=== PATIENT | female | born 1970 | race Hispanic/Latino ===

== ENCOUNTER 2020-12-13 12:43 | Outpatient (CLI) | payer BC, SELFPAY ==
--- NOTE | 2020-12-13 16:47 | WPDPFTINT ---
PFT Interpretation This is a pulmonary function test with spirometry, plethysmography and diffusing capacity. The test was performed and results interpreted in accordance with the 2019 and 2005 ATS/ERS Task Force guidelines respectively using the Global Lung Function Initiative-2012 reference equations. Patient demonstrated good effort and cooperation. Reproducibility criteria were met. The quality of the pre bronchodilator spirometry maneuver was Grade B. Findings: Spirometry: The contour the inspiratory and expiratory flow tracing are normal. The FVC is 3.23 L, 130% predicted. The FEV1 is 2.30 L, 110% predicted. The FEV1: FVC ratio 71%. Plethysmography: The total lung capacity is 4.29 L, 100% predicted. The functional residual capacity is 1.80 L, 76% predicted. The residual volume is 1.06 L, 70% predicted. Diffusing capacity: The absolute diffusion capacity is 18.3, 88% predicted. The diffusing capacity corrected for alveolar volume is 4.73, 98% predicted. Impression: The spirometry is normal without evidence of an obstructive abnormality. The lung volumes are normal. The diffusing capacity is normal. There are no prior studies for comparison PFT Procedure Performed PFT Procedure Performed Plethysmography (Lung Vol) Diffusing Cap (DLCO) Spirometry w/o Bronchodil
== END 2020-12-13 12:44 | disposition home or self-care (01) ==
PROVIDERS: PCP Nurse Practitioner Family; Visit Provider Nurse Practitioner Family
DX: R06.02 Shortness of breath (principal); J45.20 Mild intermittent asthma, uncomplicated
CPT/HCPCS: 94375; 94726; 94729

== ENCOUNTER 2020-12-13 13:58 | Outpatient (CLI) | payer BC, SELFPAY ==
--- NOTE | ~2020-12-13 | MR_ITS ---
EXAMINATION: MR cervical spine wo con EXAM DATE: 12/13/2020 14:41 INDICATION: Cervicalgia. Neck pain, frontal occipital migraines. TECHNIQUE: Multi-sequential, multiplanar MR images of the cervical spine were obtained without contra st. Axial T2, axial T2 MERGE sequence. Sagittal T1, T2, T2 fat saturation images also obtained. Th ere is no prior study for comparison. FINDINGS: Mild to moderate disc disease C5-6, and mild at C4-5 and C6-7. The vertebral bodies are al igned in the AP dimension. The spinal cord signal intensity and intrinsic morphology is normal. Cervi comedullary junction is normal in appearance. There are no suspicious marrow signal abnormalities. Pa raspinal soft tissue is unremarkable. Level by level evaluation: C2-C3: Disc does not extend beyond the endplate margin. Uncovertebral joint arthropathy: None. Facet joint arthropathy: Mild bilateral. Neural foraminal stenosis: No stenosis. Central canal stenosis: No stenosis. C3-C4: Disc does not extend beyond the endplate margin. Uncovertebral joint arthropathy: None. Facet joint arthropathy: Mild bilateral. Neural foraminal stenosis: No stenosis. Central canal stenosis: No stenosis. C4-C5: Disc does not extend beyond the endplate margin. Uncovertebral joint arthropathy: Mild bilateral. Facet joint arthropathy: Mild to moderate left, mild right. Neural foraminal stenosis: No stenosis. Central canal stenosis: No stenosis. C5-C6: There is a mild diffuse disc bulge. Uncovertebral joint arthropathy: Mild to moderate bilateral. Facet joint arthropathy: Mild to moderate left, mild right. Neural foraminal stenosis: Mild left. Central canal stenosis: Mild. C6-C7: There is a mild diffuse disc bulge. Uncovertebral joint arthropathy: Mild to moderate bilateral. Facet joint arthropathy: Mild bilateral. Neural foraminal stenosis: No stenosis. Central canal stenosis: Mild. C7-T1: Disc does not extend beyond the endplate margin. Uncovertebral joint arthropathy: Mild bilateral. Facet joint arthropathy: Mild bilateral. Neural foraminal stenosis: No stenosis. Central canal stenosis: No stenosis. IMPRESSION: Mild to moderate cervical spondylosis. Reviewed, dictated and finalized at location A.
== END 2020-12-13 13:59 ==
PROVIDERS: Visit Provider Nurse Practitioner Family
DX: M54.2 Cervicalgia (principal); M47.812 Spondylosis without myelopathy or radiculopathy, cervical region
CPT/HCPCS: 72141

== ENCOUNTER 2021-05-14 16:26 | Outpatient (CLI) | payer BC, SELFPAY ==
--- NOTE | ~2021-05-14 | MM_ITS ---
EXAMINATION: MM screening whit BI w pilar HISTORY: Screening mammogram TECHNIQUE: Craniocaudal and mediolateral oblique 3-D tomosynthesis images were obtained and synthetic 2-D images were generated. CAD analysis was submitted and interpreted. COMPARISON: 08/18/2019 and 02/23/2019 diagnostic right mammogram and limited right breast ultrasound / bilateral diagnostic digital mammogram and limited right breast ultrasound BREAST PARENCHYMAL COMPOSITION: There are scattered areas of fibroglandular density. FINDINGS: At least 2 approximately 7-8 mm circumscribed masses are noted posteriorly in the lower out er right breast. There is an approximately 3.5 mm circumscribed mass with calcifications in the lower outer quadrant o f the right breast, possibly a small fibroadenoma. Diagnostic right mammogram and targeted lower outer quadrant right breast ultrasound examination are recommended. No suspicious mass or architectural distortion, malignant calcification, skin thickening or retractio n of either breast is noted otherwise. IMPRESSION: 1. Several lower outer quadrant breast masses 2. Diagnostic right mammogram and targeted lower outer quadrant breast ultrasound examination are rec ommended BI-RADS Category 0: Incomplete: Needs additional imaging evaluation. Reviewed, dictated and finalized at location A. IMPRESSION: 1. Several lower outer quadrant breast masses 2. Diagnostic right mammogram and targeted lower outer quadrant breast ultrasou nd examination are recommended BI-RADS Category 0: Incomplete: Needs additional imaging evaluation.
== END 2021-05-14 16:27 | disposition home or self-care (01) ==
LOC: ANHIMG 16:28
PROVIDERS: PCP Nurse Practitioner Family; Visit Provider Obstetrics & Gynecology
DX: Z12.31 Encounter for screening mammogram for malignant neoplasm of breast (principal)
CPT/HCPCS: 77063; 77067

== ENCOUNTER 2021-06-03 14:11 | Outpatient (CLI) | payer BC, SELFPAY ==
--- NOTE | ~2021-06-03 | MMUS_ITS ---
EXAMINATION: MM diagnostic whit RT w pilar, US breast RT complete HISTORY: Follow-up right breast masses TECHNIQUE: Additional 3-D tomosynthesis images of the right breast were performed and synthetic 2-D i mages were generated. CAD analysis was submitted and interpreted. High resolution complete right [facility] ultrasound was performed. COMPARISON: Comparison to multiple prior studies sequentially, with oldest reviewed study dated 05/04. BREAST PARENCHYMAL COMPOSITION: The breasts are heterogenously dense, which may obscure small masses. FINDINGS: MAMMOGRAPHIC FINDINGS: There are partially obscured masses in the lower outer quadrant of the right breast. There are no lauren picious calcifications or architectural distortion. ULTRASOUND: Complete right breast ultrasound: There are multiple simple cysts of the right breast with a cluster of cysts at the 7-8:00 position, 8 cm from the nipple corresponding to the mammographic finding. Larg est cyst at this location measures 9 mm. Largest cyst at the 11:00 position measures 8 mm. No suspici ous masses to suggest malignancy. IMPRESSION: 1. No evidence for malignancy in the right breast. Multiple benign cysts. 2. Routine yearly screening mammogram and regular clinical breast examination are recommended. BI-RADS Category 2: Benign finding(s). Reviewed, dictated and finalized at location A. IMPRESSION: 1. No evidence for malignancy in the right breast. Multiple benign cysts. 2. Routine yearly screening mammogram and regular clinical breast examination a re recommended. BI-RADS Category 2: Benign finding(s).
== END 2021-06-03 14:12 | disposition home or self-care (01) ==
LOC: ANHIMG 14:12
PROVIDERS: PCP Nurse Practitioner Family; Visit Provider Obstetrics & Gynecology
DX: R92.8 Other abnormal and inconclusive findings on diagnostic imaging of breast (principal)
CPT/HCPCS: 76641; 77061; 77065; G0279

== ENCOUNTER 2021-12-20 08:17 | Outpatient (CLI) | payer BC, SELFPAY ==
[2021-12-20 08:44] LABS: Basophils Percent Auto 0.5 % (0.2-1.2); Eosinophils Absolute Auto 0.3 K/mm3 (0-0.3); Eosinophils Percent Auto 8.1 % (0-4.4); Hematocrit 35.2 % (37.0-47.0); Hemoglobin 11.5 g/dL (12.0-15.0); Immature Granulocyte Absolute 0.01 K/mm3 (0.00-0.031); Immature Granulocyte Percent A 0.3 % (0-0.5); Lymphocytes Absolute Auto 1.48 K/mm3 (0.9-3.2); Lymphocytes Percent Auto 39.8 % (18.3-44.2); Mean Corpuscular HGB Conc 32.7 g/dl (32-36); Mean Corpuscular Hemoglobin 27.4 pg (26-34); Mean Corpuscular Volume 83.8 fl (80-100); Mean Platelet Volume 8.5 fl (7.4-10.4); Monocytes Absolute Auto 0.3 K/mm3 (0.1-0.6); Monocytes Percent Auto 9.1 % (2.6-8.5); Neutrophils Absolute Auto 1.6 K/mm3 (1.3-6.7); Neutrophils Percent Auto 42.2 % (45.5-73.1); Platelet Count Result 237 k/mm3 (150-375); Red Cell Distribution Width 12.8 % (11.5-14.5); White Blood Count 3.7 K/mm3 (4.5-10.0)
[2021-12-20 08:52] LABS: Alanine Aminotransferase 37 U/L (4-35); Albumin Level 3.7 g/dL (3.5-5.1); Alkaline Phosphatase 97 U/L (38-126); Anion Gap 3 mmol/L (8-16); Aspartate Amino Transferase 39 U/L (14-36); Bilirubin,Total 0.2 mg/dL (0.2-1.3); Blood Urea Nitrogen 13 mg/dL (7-17); Calcium 8.3 mg/dL (8.4-10.2); Carbon Dioxide 27 mmol/L (22-30); Chloride 108 mmol/L (98-107); Cholesterol 214 mg/dL (0-200); Estimated Glomerular Filt Rate > 60; Glucose 98 mg/dL (65-110); HDL Direct 45 mg/dL; Potassium 3.9 mmol/L (3.4-5.0); Sodium 138 mmol/L (137-145); Triglycerides 135 mg/dL (<150)
[2021-12-20 08:53] LABS: Appearance Urine Clear (Clear); Bilirubin Urine Negative (Negative); Blood Urine Trace-lysed (Negative); Color Urine Yellow (Yellow); Glucose Urine UA Negative (Negative); Ketones Urine Negative (Negative); Leukocyte Esterase Ur Negative LEU/UL (Negative); Nitrate Urine Negative (Negative); Protein Urine Negative (Negative); Urobilinogen Urine 0.2 mg/dL (<2.0); pH Urine 6.5 (5.0-9.0)
[2021-12-20 08:57] LABS: Add Urine Microscopic? YES
[2021-12-20 09:03] LABS: LDL Cholesterol Direct 130 mg/dL
[2021-12-20 09:22] LABS: Free T4 Free Thyroxine 1.06 ng/mL (0.78-2.19)
[2021-12-20 09:38] LABS: Mucus Urine Rare /lpf; Squamous Epithelial Cell Urine Few /hpf (Few); WBC Urine 0-3 /hpf
== END 2021-12-20 08:18 | disposition home or self-care (01) ==
LOC: ANHLAB 08:20
PROVIDERS: PCP Nurse Practitioner Family; Visit Provider Nurse Practitioner
DX: M54.2 Cervicalgia (principal); E55.9 Vitamin D deficiency, unspecified; H40.9 Unspecified glaucoma; J30.2 Other seasonal allergic rhinitis; J45.20 Mild intermittent asthma, uncomplicated; J01.80 Other acute sinusitis; Z00.00 Encounter for general adult medical examination without abnormal findings; M99.01 Segmental and somatic dysfunction of cervical region; M53.82 Other specified dorsopathies, cervical region; M79.10 Myalgia, unspecified site; R51.9 Headache, unspecified; R06.02 Shortness of breath
CPT/HCPCS: 36415; 80053; 80061; 81001; 84439; 84443; 85025

== ENCOUNTER 2022-10-13 11:34 | Emergency (ER) | payer BC, SELFPAY ==
--- NOTE | ~2022-10-13 | US_ITS ---
EXAMINATION: US pelvic complete DATE: 10/13/2022 14:50 INDICATION: Severe uterine pain. TECHNIQUE: Multiple transabdominal and transvaginal sonographic images of the pelvis were obtained. COMPARISON: Ultrasound 05/13/2018 FINDINGS: TRANSABDOMINAL ULTRASOUND: The uterus measures 9.1 x 5.3 x 5.4 cm. There is no free fluid in the pelvis. TRANSVAGINAL ULTRASOUND: The endometrial complex measures 5 mm in thickness. There is a 2.1 cm intramural fibroid. There are n abothian cysts in the cervix. The right ovary measures 3.5 x 3.4 x 3.3 cm. The left ovary measures 3. 0 x 2.5 x 1.6 cm. There is normal vascular flow in the ovaries. IMPRESSION: 1. Uterine fibroid. Reviewed, dictated and finalized at location A. CAL RECORDS SUPERVISOR IMPRESSION: 1. Uterine fibroid.
[2022-10-13 11:49] VITALS: BP 148/102; PULSE 92; RESP 18; TEMP 36.3; O2SAT 99
[2022-10-13 12:39] VITALS: BP 155/90; PULSE 90; RESP 18; TEMP 36.6; O2SAT 100
--- NOTE | 2022-10-13 13:08 | ED.ABDPAIN ---
HPI - Abdominal Pain General Chief Complaint: Abdominal Pain Stated Complaint: abd pain Time Seen by Provider: 10/13/22 12:53 History of Present Illness HPI narrative: Patient is a 52-year-old female presenting with abdominal pain. Patient states that she has had lower abdominal pain for the last month. She went to another ED last night where blood work and a CT scan was obtained. She was told that she has cysts in her uterus and she was discharged home. She called her SOUND ART INSTRUCTOR's office this morning to schedule follow-up and she stated that she continued to have lower abdominal pain so the nurse told her to come back to the ER. Patient states that she took some Tylenol this morning and the pain has eased but she continues to feel it. No vaginal bleeding or abnormal discharge. No dysuria or hematuria. No flank pain. No fevers or chills. No constipation or diarrhea. Related Data Home Medications Medication Instructions Recorded Confirmed galcanezumab-gnlm 120 mg/mL 120 mg subcut MONTHLY 02/21/21 04/24/22 subcutaneous pen injector (Emgality Pen) lactobacillus combination no.4 3 3,000 mmu cells PO DAILY 03/25/21 04/24/22 billion cell capsule (Probiotic) ubrogepant 50 mg tablet (Ubrelvy) 50 mg PO ONCE 03/25/21 04/24/22 lisinopril 20 mg tablet 20 mg PO DAILY 04/09/22 04/24/22 Allergies Allergy/AdvReac Type Severity Reaction Status Date / Time erythromycin base Allergy Unknown Unknown Verified 04/09/22 14:39 Review of Systems Review of Systems: All systems reviewed & are unremarkable except as noted in HPI and below PMFSH Past Medical History Medical History Abnormal mammogram Environmental and seasonal allergies Migraines Mild intermittent asthma in adult without complication Surgical History Surgical History H/O section x 3 History of endometrial ablation 2004 History of sinus surgery History of tubal ligation S/P breast augmentation Family History Family History Father Hypertension Diabetes mellitus Mother Hypertension Family history of diabetes mellitus in first degree relative Family history of malignant neoplasm of ovary Diabetes mellitus Social History Social History Smoking status: Never smoker Second hand tobacco smoke exposure: Yes Alcohol intake: current Alcohol use details: Rarely. Substance use: never Substance use type: does not use Living arrangements: with family Occupation/Education: occupation Gender identity (if verbalized by the patient): Female Exam Narrative: GENERAL: Well-appearing, well-nourished, and in no acute distress. HEAD: Normocephalic, atraumatic. EYES: PERRLA and EOMI. ENT: Nares clear, no rhinorrhea or epistaxis. Mucous membranes moist. NECK: Supple. CHEST: Clear to auscultation. No respiratory distress. HEART: Regular rate and rhythm. No murmur heard. Normal peripheral pulses. ABDOMEN: Soft, nontender, nondistended, normal active bowel sounds. EXTREMITIES: Normal range of motion. No edema. SKIN: Warm, dry, no rash. NEURO: No focal deficits. Alert and oriented x3. PSYCH: Normal mood and affect. Course Vital Signs Vital signs: Vital Signs Temperature 97.4 F L 10/13/22 11:49 Pulse Rate 92 10/13/22 11:49 Respiratory Rate 18 10/13/22 11:49 Blood Pressure 148/102 H 10/13/22 11:49 Pulse Oximetry 99 10/13/22 11:49 Oxygen Delivery Room Air 10/13/22 11:49 Temperature 98 F 10/13/22 17:04 Pulse Rate 93 10/13/22 17:04 Respiratory Rate 16 10/13/22 17:04 Blood Pressure 137/105 H 10/13/22 17:04 Pulse Oximetry 100 10/13/22 17:04 Oxygen Delivery Room Air 10/13/22 12:39 MDM - Abdominal Pain MDM Narrative Medical decision making narrative: Patient is a 52-y
[2022-10-13] MEDS: KETOROLAC 30 MG/ML VIAL (*BKC) IM (13:34)
[2022-10-13 16:15] VITALS: BP 146/101; PULSE 93; RESP 15; TEMP 36.6; O2SAT 96
[2022-10-13 17:04] VITALS: BP 137/105; PULSE 93; RESP 16; TEMP 36.6; O2SAT 100
== END 2022-10-13 17:06 | disposition home or self-care (01) ==
PROVIDERS: Emergency Provider Emergency Medicine; PCP Nurse Practitioner Family
DX: D25.9 Leiomyoma of uterus, unspecified (principal); N88.8 Other specified noninflammatory disorders of cervix uteri; J45.20 Mild intermittent asthma, uncomplicated
CPT/HCPCS: 76856; 96372; 99284; J1885

== ENCOUNTER 2022-11-04 06:45 | Outpatient (CLI) | payer BC, SELFPAY ==
--- NOTE | ~2022-11-04 | MR_ITS ---
EXAMINATION: MR pelvis wo/w con DATE: 11/04/2022 07:50 INDICATION: Fibroids. TECHNIQUE: Magnetic resonance imaging (MRI) of the pelvis was performed without and with 14 mL MultiH ance intravenous contrast. COMPARISON: Ultrasound pelvis 10/13/2022, 05/13/18 FINDINGS: There are no dilated loops of bowel. There are no pathologically enlarged lymph nodes. There is no fr ee intraperitoneal fluid. The uterus measures 9.0 x 4.8 x 5.8 cm. The endometrial complex is indistin ct and measures up to 5 mm in thickness. There are numerous nabothian cysts in the cervix measuring u p to 2.2 cm. There are cysts in the ovaries measuring up to 2.8 cm on the right, likely benign. There is mild right-sided hydrosalpinx. IMPRESSION: 1. No uterine fibroid identified. 2. Numerous nabothian cysts in the cervix. 3. Mild right-sided hydrosalpinx. Reviewed, dictated and finalized at location A. RETE STONE FINISHER
== END 2022-11-04 06:46 | disposition home or self-care (01) ==
PROVIDERS: PCP Nurse Practitioner Family; Visit Provider Obstetrics & Gynecology
DX: D25.9 Leiomyoma of uterus, unspecified (principal); N88.8 Other specified noninflammatory disorders of cervix uteri; N70.11 Chronic salpingitis
CPT/HCPCS: 72197; A9577

== ENCOUNTER 2022-12-26 07:19 | Outpatient (CLI) | payer BC, SELFPAY ==
[2022-12-26 08:25] LABS: Basophils Percent Auto 0.8 % (0.2-1.2); Eosinophils Absolute Auto 0.2 K/mm3 (0-0.3); Eosinophils Percent Auto 3.8 % (0-4.4); Hematocrit 33.4 % (37.0-47.0); Immature Granulocyte Absolute 0.02 K/mm3 (0.00-0.031); Immature Granulocyte Percent A 0.4 % (0-0.5); Lymphocytes Absolute Auto 1.57 K/mm3 (0.9-3.2); Lymphocytes Percent Auto 33.3 % (18.3-44.2); Mean Corpuscular HGB Conc 29.9 g/dl (32-36); Mean Corpuscular Hemoglobin 22.6 pg (26-34); Mean Corpuscular Volume 75.6 fl (80-100); Monocytes Absolute Auto 0.4 K/mm3 (0.1-0.6); Monocytes Percent Auto 8.3 % (2.6-8.5); Neutrophils Absolute Auto 2.5 K/mm3 (1.3-6.7); Neutrophils Percent Auto 53.4 % (45.5-73.1); Platelet Count Result 268 k/mm3 (150-375); Red Blood Count 4.42 M/mm3 (4.2-5.4); Red Cell Distribution Width 15.9 % (11.5-14.5); White Blood Count 4.7 K/mm3 (4.5-10.0)
[2022-12-26 08:38] LABS: Alanine Aminotransferase 36 U/L (6-35); Alkaline Phosphatase 88 U/L (38-126); Anion Gap 5 mmol/L (8-16); Aspartate Amino Transferase 33 U/L (14-36); Bilirubin,Total 0.5 mg/dL (0.2-1.3); Blood Urea Nitrogen 10 mg/dL (7-17); Calcium 8.6 mg/dL (8.4-10.2); Carbon Dioxide 28 mmol/L (22-30); Chloride 105 mmol/L (98-107); Cholesterol 185 mg/dL (0-200); Estimated Glomerular Filt Rate > 60; Glucose 105 mg/dL (65-110); HDL Direct 41 mg/dL; Potassium 3.8 mmol/L (3.4-5.0); Sodium 138 mmol/L (137-145); Triglycerides 185 mg/dL (<150)
[2022-12-26 08:48] LABS: LDL Cholesterol Direct 117 mg/dL
[2022-12-26 09:47] LABS: Free T4 Free Thyroxine 1.14 ng/mL (0.78-2.19); Vitamin D 25 Hydroxy 14.7 ng/mL
[2022-12-26 10:04] LABS: Appearance Urine Clear (Clear); Bilirubin Urine Negative (Negative); Blood Urine Negative (Negative); Color Urine Yellow (Yellow); Glucose Urine UA Negative (Negative); Ketones Urine Negative (Negative); Leukocyte Esterase Ur Negative LEU/UL (Negative); Nitrate Urine Negative (Negative); Protein Urine Negative (Negative); Specific Grav Ur 1.013 (1.001-1.035); Urobilinogen Urine 0.2 mg/dL (<2.0)
[2022-12-26 10:11] LABS: Add Urine Microscopic? NO
== END 2022-12-26 07:20 | disposition home or self-care (01) ==
PROVIDERS: PCP Nurse Practitioner Family; Visit Provider Nurse Practitioner
DX: M54.2 Cervicalgia (principal); E55.9 Vitamin D deficiency, unspecified; J30.2 Other seasonal allergic rhinitis; H40.9 Unspecified glaucoma; J45.20 Mild intermittent asthma, uncomplicated; J01.80 Other acute sinusitis; M99.01 Segmental and somatic dysfunction of cervical region; M53.82 Other specified dorsopathies, cervical region; M79.10 Myalgia, unspecified site; R51.9 Headache, unspecified; R06.02 Shortness of breath
CPT/HCPCS: 36415; 80053; 80061; 81003; 82306; 84439; 84443; 85025

== ENCOUNTER 2023-01-07 16:00 | Outpatient (CLI) | payer BC, SELFPAY ==
--- NOTE | ~2023-01-07 | MM_ITS ---
CORRECTED REPORT exam description change [facility] [place] 01/11/23 This report was recreated on 01/11/23. Original report was EXAMINATION: MM screening mammo implant BI w pilar HISTORY: Screening mammogram TECHNIQUE: Craniocaudal and mediolateral oblique 3-D tomosynthesis images with implant displacement and synthetic 2-D images were generated. Craniocaudal and mediolateral oblique views of the breasts without implant displacement were obtained using full field digital mammography. CAD analysis was submitted and interpreted. COMPARISON: 05/26/2021, 05/14/2021, 08/18/2019, 02/14/2019 BREAST PARENCHYMAL COMPOSITION: The breasts are heterogeneously dense, which may obscure small masses. FINDINGS: There has been interval breast augmentation. There is no evidence of suspicious mass, calcification, or architectural distortion to suggest malignancy in either breast. There has been no suspicious interval change. IMPRESSION: 1. No mammographic evidence of malignancy. 2. Recommend routine screening mammography in one year. BI-RADS Category 1: Negative Reviewed, dictated and finalized at location A. MTDD
== END 2023-01-07 16:01 | disposition home or self-care (01) ==
LOC: ANHIMG 16:03
PROVIDERS: PCP Nurse Practitioner Family; Visit Provider Obstetrics & Gynecology
DX: Z12.31 Encounter for screening mammogram for malignant neoplasm of breast (principal)
CPT/HCPCS: 77063; 77067

== ENCOUNTER 2023-02-16 09:53 | Outpatient (CLI) | payer BC, SELFPAY ==
[2023-02-16 10:29] LABS: Appearance Urine Cloudy (Clear); Bacteria Urine Rare /hpf; Bilirubin Urine Negative (Negative); Blood Urine Negative (Negative); Color Urine Yellow (Yellow); Glucose Urine UA Negative (Negative); Ketones Urine Negative (Negative); Leukocyte Esterase Ur Negative LEU/UL (Negative); Nitrate Urine Negative (Negative); Non Pathogenic Casts 0-2; Protein Urine Negative (Negative); RBC Urine 0-2 /hpf (0-2); Specific Grav Ur 1.017 (1.001-1.035); Squamous Epithelial Cell Urine Moderate /hpf (Few); Urobilinogen Urine 0.2 mg/dL (<2.0); WBC Urine 0-5 /hpf
[2023-02-16 10:38] LABS: Hemoglobin A1C 5.5 % (<5.7)
[2023-02-16 10:39] LABS: Alanine Aminotransferase 60 U/L (6-35); Albumin Level 3.8 g/dL (3.5-5.1); Alkaline Phosphatase 90 U/L (38-126); Anion Gap 4 mmol/L (8-16); Aspartate Amino Transferase 47 U/L (14-36); Bilirubin,Total 0.4 mg/dL (0.2-1.3); Blood Urea Nitrogen 14 mg/dL (7-17); Calcium 8.6 mg/dL (8.4-10.2); Carbon Dioxide 29 mmol/L (22-30); Chloride 106 mmol/L (98-107); Cholesterol 167 mg/dL (0-200); Estimated Glomerular Filt Rate > 60; Glucose 102 mg/dL (65-110); HDL Direct 45 mg/dL; Potassium 3.4 mmol/L (3.4-5.0); Sodium 139 mmol/L (137-145); Triglycerides 174 mg/dL (<150)
[2023-02-16 10:41] LABS: Add Urine Microscopic? YES
[2023-02-16 10:50] LABS: LDL Cholesterol Direct 101 mg/dL
[2023-02-16 11:06] LABS: Creatinine Urine 171.7 mg/dL
[2023-02-16 11:11] LABS: MALB Creatinine Ratio 5.9 mg/g (0-30); Microalbumin Urine Random 10.1 mg/L (0-16.7)
== END 2023-02-16 09:54 | disposition home or self-care (01) ==
LOC: ANHLAB 09:58
PROVIDERS: PCP Nurse Practitioner Family; Visit Provider Nurse Practitioner
DX: E78.2 Mixed hyperlipidemia (principal); M54.6 Pain in thoracic spine; M54.51 Vertebrogenic low back pain; H81.10 Benign paroxysmal vertigo, unspecified ear; R31.9 Hematuria, unspecified; M54.2 Cervicalgia; F41.1 Generalized anxiety disorder; E11.9 Type 2 diabetes mellitus without complications; I10 Essential (primary) hypertension
CPT/HCPCS: 36415; 80053; 80061; 81001; 82043; 83036

== ENCOUNTER 2023-07-24 07:27 | Outpatient (CLI) | payer BC, SELFPAY ==
[2023-07-24 09:07] LABS: Lactate Dehydrogenase 202 U/L (120-246)
[2023-07-24 09:10] LABS: Basophils Percent Auto 0.7 % (0.2-1.2); Eosinophils Absolute Auto 0.2 K/mm3 (0-0.3); Eosinophils Percent Auto 4.5 % (0-4.4); Hematocrit 39.4 % (37.0-47.0); Hemoglobin 12.3 g/dL (12.0-15.0); Immature Granulocyte Absolute 0.02 K/mm3 (0.00-0.031); Immature Granulocyte Percent A 0.5 % (0-0.5); Lymphocytes Absolute Auto 1.51 K/mm3 (0.9-3.2); Mean Corpuscular HGB Conc 31.2 g/dl (32-36); Mean Corpuscular Hemoglobin 24.5 pg (26-34); Mean Corpuscular Volume 78.3 fl (80-100); Mean Platelet Volume 9.2 fl (7.4-10.4); Monocytes Absolute Auto 0.3 K/mm3 (0.1-0.6); Monocytes Percent Auto 6.3 % (2.6-8.5); Neutrophils Absolute Auto 2.4 K/mm3 (1.3-6.7); Platelet Count Result 268 k/mm3 (150-375); Red Blood Count 5.03 M/mm3 (4.2-5.4); Red Cell Distribution Width 15.7 % (11.5-14.5); White Blood Count 4.4 K/mm3 (4.5-10.0)
[2023-07-24 09:46] LABS: Iron 62 ug/dL (37-170)
[2023-07-24 09:49] LABS: Appearance Urine Cloudy (Clear); Bacteria Urine Rare /hpf; Bilirubin Urine Negative (Negative); Blood Urine Negative (Negative); Color Urine Yellow (Yellow); Glucose Urine UA Negative (Negative); Ketones Urine Negative (Negative); Leukocyte Esterase Ur Negative LEU/UL (Negative); Mucus Urine Present /lpf; Need Manual Microscopic Need Manual; Nitrate Urine Negative (Negative); Non Pathogenic Casts 0-2; Protein Urine Negative (Negative); Squamous Epithelial Cell Urine Few /hpf (Few); Urobilinogen Urine 0.2 mg/dL (<2.0); WBC Urine 0-5 /hpf; pH Urine 6.5 (5.0-9.0)
[2023-07-24 09:56] LABS: Percent Iron Saturation 14 % (20-50)
[2023-07-24 10:11] LABS: Folic Acid 4.4 ng/mL (2.76->20)
[2023-07-24 10:46] LABS: Add Urine Microscopic? YES
[2023-07-24 12:08] LABS: Reticulocyte Hemoglobin Conten 28.2 pg (28.2-35.7); Reticulocytes Absolute 0.07 M/mm3 (0.02-0.1)
[2023-07-24 12:56] LABS: Transferrin 341 mg/dL (206-381)
[2023-07-27 15:31] LABS: Albumin 3.8 g/dL (3.8-4.8); Alpha 1 Globulin 0.3 g/dL (0.2-0.3); Alpha 2 Globulin 0.8 g/dL (0.5-0.9); Beta 1 Globulin 0.5 g/dL (0.4-0.6); Gamma Globulin 0.9 g/dL (0.8-1.7); Protein, Total 6.7 g/dL (6.1-8.1)
[2023-07-28 20:11] LABS: Haptoglobin 181 mg/dL (43-212)
== END 2023-07-24 07:28 | disposition home or self-care (01) ==
LOC: ANHLAB 07:30
PROVIDERS: PCP Nurse Practitioner Family; Visit Provider Nurse Practitioner
DX: I10 Essential (primary) hypertension (principal); D64.9 Anemia, unspecified; R51.9 Headache, unspecified; M79.10 Myalgia, unspecified site; M53.82 Other specified dorsopathies, cervical region; M99.01 Segmental and somatic dysfunction of cervical region; J30.2 Other seasonal allergic rhinitis; H40.9 Unspecified glaucoma; Z98.82 Breast implant status
CPT/HCPCS: 36415; 81001; 82570; 82607; 82728; 82746; 83010; 83540; 83550; 83615; 84155; 84156; 84165; 84166; 84466; 85025; 85046; 86592; 86803; 87177; 87209

== ENCOUNTER 2023-07-28 14:16 | Outpatient (CLI) | payer BC, SELFPAY ==
[2023-07-28 15:03] LABS: IFOB Positive Control Positive; Immunochemical Fecal Occult Bl Negative (N)
== END 2023-07-28 14:17 | disposition home or self-care (01) ==
LOC: ANHLAB 14:25
PROVIDERS: PCP Nurse Practitioner Family; Visit Provider Nurse Practitioner
DX: D64.9 Anemia, unspecified (principal); I10 Essential (primary) hypertension; R51.9 Headache, unspecified; M79.10 Myalgia, unspecified site; M53.82 Other specified dorsopathies, cervical region; M99.01 Segmental and somatic dysfunction of cervical region; M54.2 Cervicalgia; J30.2 Other seasonal allergic rhinitis; H40.9 Unspecified glaucoma; R05.9 Cough, unspecified; J45.20 Mild intermittent asthma, uncomplicated; Z98.82 Breast implant status; Z48.02 Encounter for removal of sutures
CPT/HCPCS: 82274

== ENCOUNTER 2024-01-18 15:35 | Outpatient (CLI) | payer BC, SELFPAY ==
--- NOTE | ~2024-01-18 | MR_ITS ---
EXAMINATION: MR brain/brain stem wo/w con DATE: 01/18/2024 16:29 INDICATION: Migraine headache. TECHNIQUE: Magnetic resonance imaging (MRI) of the brain and brainstem was performed without and with 14 mL MultiHance intravenous contrast. COMPARISON: Brain MRI 07/25/2016 FINDINGS: There is no intracranial hemorrhage, acute infarction, or abnormal intracranial mass lesion . The ventricles are normal in size. There is mild mucosal thickening in the paranasal sinuses. The m astoid air cells are normal. The orbits are normal. IMPRESSION: 1. Normal brain. Reviewed, dictated and finalized at location A. IMPRESSION: 1. Normal brain.
== END 2024-01-18 15:36 | disposition home or self-care (01) ==
LOC: ANHIMG 15:38
PROVIDERS: PCP Internal Medicine; Visit Provider Internal Medicine
DX: G43.009 Migraine without aura, not intractable, without status migrainosus (principal)
CPT/HCPCS: 70553; A9577

== ENCOUNTER 2024-02-07 08:48 | Outpatient (CLI) | payer BC, SELFPAY ==
[2024-02-07 10:13] LABS: CRP 0.5 mg/dL (<1.0)
[2024-02-07 10:27] LABS: Erythrocyte Sedimentation Rate 19 mm/hr (0-20)
[2024-02-11 11:10] LABS: Alternaria alternata IgE <0.10 kU/L; Alternaria alternata IgE Class 0; Aspergillus fumigatus IgE <0.10 kU/L; Bermuda Grass (G2) IgE <0.10 kU/L; Bermuda Grass (G2) IgE Class 0; Cat Dander IgE <0.10 kU/L; Cat Dander IgE Class 0; Cladosporium herbarum IgE <0.10 kU/L; Cladosporium herbarum IgE Clas 0; Cockroach IgE <0.10 kU/L; Cockroach IgE Clas 0; Common Ragweed IgE Class 0; Cottonwood IgE <0.10 kU/L; Dermatophagoides Farinae Class 0; Dermatophagoides Pterony Class 0; Dermatophagoides Pteronyssinus <0.10 kU/L; Dog Dander IgE <0.10 kU/L; Elm (T8) IgE <0.10 kU/L; Elm (T8) IgE Class 0; Hickory/Pecan IgE <0.10 kU/L; Hickory/Pecan IgE Class 0; Immunoglobulin E 57 kU/L (<OR=114); Maple Box Elder IgE Class 0; Mountain Cedar IgE <0.10 kU/L; Mountain Cedar IgE Class 0; Mouse Urine Proteins IgE <0.10 kU/L; Mouse Urine Proteins IgE Class 0; Oak IgE <0.10 kU/L; Peniciliium notatum class 0; Penicillium notatum (M1) IgE <0.10 kU/L; Rough Marsh <0.10 kU/L; Rough Marsh Elder Class 0; Rough Pigweed (W14) IgE <0.10 kU/L; Rough Pigweed (W14) IgE Class 0; Russian Thistle <0.10 kU/L; Sycamore IgE <0.10 kU/L; Sycamore IgE Class 0; Timothy Grass IgE <0.10 kU/L; Timothy Grass IgE Class 0; Walnut Tree IgE <0.10 kU/L; Walnut Tree IgE Class 0; White Ash IgE Class 0; White Mulberry IgE <0.10 kU/L; White Mulberry IgE Class 0
== END 2024-02-07 08:49 | disposition home or self-care (01) ==
LOC: ANHLAB 08:52
PROVIDERS: PCP Internal Medicine; Visit Provider Internal Medicine
DX: Z00.00 Encounter for general adult medical examination without abnormal findings (principal); M54.2 Cervicalgia; R07.9 Chest pain, unspecified; M79.10 Myalgia, unspecified site; M53.82 Other specified dorsopathies, cervical region; M99.01 Segmental and somatic dysfunction of cervical region; J45.20 Mild intermittent asthma, uncomplicated; J30.2 Other seasonal allergic rhinitis; Z98.82 Breast implant status; I10 Essential (primary) hypertension; G43.009 Migraine without aura, not intractable, without status migrainosus; R31.9 Hematuria, unspecified; D64.9 Anemia, unspecified; H40.9 Unspecified glaucoma
CPT/HCPCS: 36415; 82785; 85652; 86003; 86140

== ENCOUNTER 2024-05-02 14:34 | Outpatient (CLI) | payer BC, SELFPAY ==
--- NOTE | ~2024-05-02 | MM_ITS ---
EXAMINATION: MM scrn whit implant BI w pilar HISTORY: Screening mammogram TECHNIQUE: Craniocaudal and mediolateral oblique 3-D tomosynthesis images with implant displacement a nd synthetic 2-D images were generated. Craniocaudal and mediolateral oblique views of the breasts wi thout implant displacement were obtained using full field digital mammography. CAD analysis was submi tted and interpreted. COMPARISON: Comparison to multiple prior studies sequentially, with oldest reviewed study dated 02/14. BREAST PARENCHYMAL COMPOSITION: There are scattered areas of fibroglandular density. FINDINGS: There is no evidence of suspicious mass, calcification, or architectural distortion to sugg est malignancy in either breast. There has been no suspicious interval change. IMPRESSION: 1. No mammographic evidence of malignancy. 2. Recommend routine screening mammography in one year. BI-RADS Category 1: Negative Reviewed, dictated and finalized at location B.
== END 2024-05-02 14:35 | disposition home or self-care (01) ==
LOC: ANHIMG 14:35
PROVIDERS: PCP Internal Medicine; Visit Provider Obstetrics & Gynecology
DX: Z12.31 Encounter for screening mammogram for malignant neoplasm of breast (principal)
CPT/HCPCS: 77063; 77067

== ENCOUNTER 2025-08-09 08:00 | Outpatient (CLI) | payer BC, SELFPAY ==
--- OUTSIDE RECORDS SUMMARY | 2024-02-19 15:30 | XMS_ITS ---
Author Organization [employer] [facility] [employer] [place] ([address]) Address [address] [place] [address] Care Team Providers Care Glass Sagger Name Role Phone Mihir Vale Primary Care Provider Unavail able Lian Lance Unavailable [phone] ZZ-Migration, Provider Unavailable Unavailab le [facility] Encounter Medications Medication SIG (Take, Route, Frequency, Duration) Notes Start Date End Date Status Azelastine HCl 137 MCG/SPRAY 2 spray(s) intranasally 2 times a day; Duration: 30 day(s) 03/03/2023 Active Levocetirizine Dihydrochloride 5 MG 1 tab(s) orally once a day (in the evening); Duration: 30 day(s) 03/03/2023 Active Losartan Potassium-HCTZ 50-12.5 MG 1 tab(s) orally once a day; Duration: 30 day(s) Active EMGALITY PREFILLED PEN GNLM 120 MG/ML DIRECTED SUBCUTANEOUSLY ONCE A MONTH *Please review for potential replacement for e-prescription and drug interaction check* Active Albuterol Sulfate HFA 108 (90 Base) MCG/ACT 2 puff(s) inhaled every 6 hours Active ZyrTEC Allergy 10 MG 1 tab(s) orally onc e a day Active EPINEPHRINE AUTO-INJECTOR 0.3 MG DIRECTED INTRAMUSCULARLY ONCE; Duration: 1 DAY *Please review for potential replacement for e-prescription and drug interaction check* 03/03/2023 Active Topiramate 25 MG 1 tab(s) orally 2 times a day; Duration: 30 day(s) Active Montelukast Sodium 10 MG 1 tab(s) orally once a day; Duration: 30 day(s) Active Trelegy Ellipta 100/62.5/25 MCG 1 INHALATION PO QDAY; Duration: 30 DAY(S) *Please review and pick correct strength-formulat ion from Medispan options. If intended option is not shown, discontinue and re-order from Quick Search* Active Encounters Encounter Location Date Provider Diagnosis [address] [address] 02/19/2024 [place] Allergic rhinitis due to pollen J30.1 Assessments Encounter Date Diagnosis (ICD Code) Assessment Notes Treatment Notes Treatment Clinical Notes Section Notes 02/19/2024 Allergic rhinitis due to pollen (ICD-10 - J30.1) Plan Of Treatment Medication Medication Name Sig Start Date Stop Date Notes Azelastine HCl 137 MCG/SPRAY 2 spray(s) intranasally 2 times a day; Duration: 30 day(s) 03/03/2023 Levocetirizine Dihydrochloride 5 MG 1 tab(s) orally once a day (in the evening); Duration: 30 day(s) 03/03/2023 EPINEPHRINE AUTO-INJECTOR 0.3 MG DIRECTED INTRAMUSCULARLY ONCE; Duration: 1 DAY 03/03/2023 *Please review for potential replacement for e-prescription and drug interaction check* Progress Notes * Li MARQUEZDOB:1970 ( 55 yo F)Acc No.[id number]:02/19/2024 Patient: Jori CAMEJOLi Provider: Colleen Taylor :1970 A ge:53 Y S ex:Female Date:02/19/2024 Address:[address] [place], [place] [id number] Pcp:Mihir Vale Subjective: * Chief Complaints: * 1 . Multum To Medispan Conversion Encounter. * Medical History: * Medications: T aking ZyrTEC Allergy 10 MG Tablet 1 tab(s) orally once a day , Taking Trelegy Ellipta 100/62.5/25 MCG DPI 1 INHALATION PO QDAY , Notes to Pharmacist: *Please review and pick correct strength-formulation from Medispan options. If intended option is not shown, discontinue and re-order from Quick Search*, Taking Montelukast Sodium 10 MG Tablet 1 tab(s) orally once a day , Taking Topiramate 25 MG Tablet 1 tab(s) orally 2 times a day , Taking Albuterol Sulfate HFA 108 (90 Base) MCG/ACT Aerosol Solution 2 puff(s) inhaled every 6 hours , Taking EMGALITY PREFILLED PEN GNLM 120 MG/ML SOLUTION DIRECTED SUBCUTANEOUSLY ONCE A MONTH , Notes to Pharmacist: *Please review for potential replacement for e-prescription and drug interaction check*, Taking Losartan Potassium-HCTZ 50-12.5 MG Tablet 1 tab(s) orally once a day Objective: * Vitals: Assessment: * Assessment: 1. A llergic rhinitis due to pollen - J30.1 Plan: * Treatment: * Billing Information: * Visit Code: * Procedure Codes: * Electronic signature of Mary NICOLE-Migration on 08/09/2025 at 08:10 AM OFFICE AUTOMATION CLERK Sign off status: Pending * Provider: Colleen bhatti Migration Date: 0 02/19/2024 Generated for Wendy moreno/Esau/Joseitting on: 1 10/10/2024 08:10 AM OFFICE AUTOMATION CLERK
--- OUTSIDE RECORDS SUMMARY | 2024-02-22 11:30 | XMS_ITS ---
Author Organization [facility] [place] ([address]) Address [address] [place] [address] Care Team Providers Care Slot Machine Department Floorperson Name Role Phone Mihir Vale Primary Care Provider Unavail able Lian Lance Unavailable [phone] REASON FOR VISIT U.S. COMMISSIONER Allergies Encounters Encounter Location Date Provider Diagnosis [facility] [address] [place] [address] 02/22/2024 Lian Lance Plan Of Treatment No Information Progress Notes * Li MARQUEZDOB:1970 ( 55 yo F)Acc No.[id number]:02/22/2024 Progress Notes Patient: Li BLACKWELL Provider: Christopher Lance MD :1970 A ge:53 Y S ex:Female Date:02/22/2024 Address:[address] [place], [place] [phone] Pcp:Mihir Vale Subjective: * Chief Complaints: * 1 . U.S. COMMISSIONER Allergies. * Medical History: Objective: * Vitals: Assessment: Plan: * Treatment: * Billing Information: * Visit Code: * Procedure Codes: * Electronic signature of Jennie Lance MD on 08/09/2025 at 08:10 AM STRAIGHTEDGE MACHINE OPERATOR HELPER Sign off status: Pending * Provider: Christopher Lance MD Date: 0 02/22/2024 Generated for Wendy moreno/Esau/eTransmitting on: 1 10/10/2024 08:10 AM STRAIGHTEDGE MACHINE OPERATOR HELPER
--- OUTSIDE RECORDS SUMMARY | 2024-04-05 11:30 | XMS_ITS ---
Author Organization [facility] ([address]) Address [address] [place] [address] Care Team Providers Care Transit Bus Operator Name Role Phone Mihir Vale Primary Care Provider Unavail able Lian Lance Unavailable [phone] REASON FOR VISIT Asthma follow-up - recent flares Medications Medication SIG (Take, Route, Frequency, Duration) Notes Start Date End Date Status LEVOCETIRIZINE 5 mg 1 tab(s) orally once a day (in the evening); Duration: 30 day(s) Active Trelegy Ellipta 200-62.5-25 MCG/ACT 1 puff Inhalation Once a day; Duration: 30 days Active AZELASTINE NASAL 137 mcg/inh 2 spray(s) intranasally 2 times a day; Duration: 30 day(s) Active EPINEPHRINE AUTO-INJECTOR 0.3 MG DIRECTED INTRAMUSCULARLY ONCE; Duration: 1 DAY *Please review for potential replacement for e-prescription and drug interaction check* 03/03/2023 Active Azelastine HCl 137 MCG/SPRAY 2 spray(s) intranasally 2 times a day; Duration: 30 day(s) 03/03/2023 Active Levocetirizine Dihydrochloride 5 MG 1 tab(s) orally once a day (in the evening); Duration: 30 day(s) 03/03/2023 Active Albuterol Sulfate HFA 108 (90 Base) MCG/ACT 2 puff(s) inhaled every 6 hours Active Montelukast Sodium 10 MG 1 tab(s) orally once a day; Duration: 30 day(s) Active Losartan Potassium-HCTZ 50-12.5 MG 1 tab(s) orally once a day; Duration: 30 day(s) Active EMGALITY PREFILLED PEN GNLM 120 MG/ML DIRECTED SUBCUTANEOUSLY ONCE A MONTH *Please review for potential replacement for e-prescription and drug interaction check* Active ZyrTEC Allergy 10 MG 1 tab(s) orally onc e a day Active Breo Ellipta 200-25 MCG/ACT 1 puff Inhalation Once a day Active Trelegy Ellipta 100/62.5/25 MCG 1 INHALATION PO QDAY; Duration: 30 DAY(S) *Please review and pick correct strength-formulat ion from VEASYT options. If intended option is not shown, discontinue and re-order from Quick Search* Active Encounters Encounter Location Date Provider Diagnosis [facility] [address] [address] 04/05/2024 Lian Natalio Allergic rhinitis du e to pollen J30.1 ; Moderate persistent asthma, uncomplicated J45.40 ; Allergic rhinitis due to animal (cat) (dog) hair and dander J30.81 ; Other allergic rhinitis J30.89 ; Other chronic allergic conjunctivitis H10.45 and Shortness of breath R06.02 Assessments Encounter Date Diagnosis (ICD Code) Assessment Notes Treatment Notes Treatment Clinical Notes Section Notes 04/05/2024 Allergic rhinitis due to pollen (ICD-10 - J30.1) Li clearly suffers from atopic disease based upon our skin testing and clinical history. Accordingly, we have introduced a new, aggressive medication regimen, discussed nasal washes and allergy-specific avoidance measures. We also discussed adjunctive therapies including subcutaneous, specific allergen immunotherapy as relates to the treatment and prevention of atopic disease. She is currently considering the risks, benefits and alternatives to this care. Risks: bleeding, infection, allergic reaction, anaphylaxis; Benefits: reduced need for medications, improved symptoms, disease modification. Alternatives: watch/wait, change medication regimen, improve allergy avoidance measures. Follow-up in 1 month for interval evaluation and management 04/05/2024 Moderate persistent asthma, uncomplicated (ICD-10 - J45.40) Persistent asthma and ACT 9 today. Spirometry today is normal. We discusse switching from Breo to Trelegy. Coupon given. We discussed starting immunotherapy to help with asthma control. 04/05/2024 Allergic rhinitis due to animal (cat) (dog) hair and dander (ICD-10 - J30.81) Follow allergen avoidance, meds and consider SCIT as an adjunctive treatment to current regimen 04/05/2024 Other allergic rhinitis (ICD-10 - J30.89) Follow allergen avoidance, meds and consider SCIT as an adjunctive treatment to current regimen 04/05/2024 Other chronic allergic conjunctivitis (ICD-10 - H10.45) Given ocular signs and symptoms I encouraged allergy avoidance measures and meds as above. If symptoms persist, consider adding additional medications including intraocular antihistamine/mas t cell stabilizer, PRN and consider SCIT as an adjunctive measure 04/05/2024 Shortness of breath (ICD-10 - R06.02) Plan Of Treatment Medication Medication Name Sig Start Date Stop Date Notes LEVOCETIRIZINE 5 mg 1 tab(s) orally once a day (in the evening); Duration: 30 day(s) Trelegy Ellipta 200-62.5-25 MCG/ACT 1 puff Inhalation Once a day; Duration: 30 days AZELASTINE NASAL 137 mcg/inh 2 spray(s) intranasally 2 times a day; Duration: 30 day(s) Treatment Notes Assessment Notes Allergic rhinitis due to pollen Li thompson early suffers from atopic disease based upon our skin testing and clinical history. Accordingly, we have introduced a new, aggressive medication regimen, discussed nasal washes and allergy-specific avoidance measures. We also discussed adjunctive therapies including subcutaneous, specific allergen immunotherapy as relates to the treatment and prevention of atopic disease. She is currently considering the risks, benefits and alternatives to this care. Risks: bleeding, infection, allergic reaction, anaphylaxis; Benefits: reduced need for medications, improved symptoms, disease modification. Alternatives: watch/wait, change medication regimen, improve allergy avoidance measures. Follow-up in 1 month for interval evaluation and management Moderate persistent asthma, uncomplicate d Persistent asthma and ACT 9 today. Spirometry today is normal. We discusse switching from Breo to Trelegy. Coupon given. We discussed starting immunotherapy to help with asthma control. Allergic rhinitis due to ani mal (cat) (dog) hair and dander Follow allergen avoidance, meds and consider SCIT as an adjunctive treatment to current regimen Other allergic rhinitis Follow allergen avoidance, meds and consider SCIT as an adjunctive treatment to current regimen Other chronic allergic conjunctivitis Gi shanel ocular signs and symptoms I encouraged allergy avoidance measures and meds as above. If symptoms persist, consider adding additional medications including intraocular antihistamine/mast cell stabilizer, PRN and consider SCIT as an adjunctive measure Next Appt Details Follow Up: 4 Weeks, Reason: Evaluation and Management Progress Notes * Li MARQUEZDOB:1970 ( 55 yo F)Acc No.[id number]:04/05/2024 Progress Notes Patient: Li BLACKWELL Provider: Christopher Lance MD :1970 A ge:53 Y S ex:Female Date:04/05/2024 Address:[address] [place], [place] [id number] Pcp:Mihir Vale Subjective: * Chief Complaints: * 1 . Asthma follow-up - recent flares. * HPI: * Introduction: HPI: Christopher Marquez, a 53 year old with asthma and migraines presenting for f/u evaluation of rhinitis and asthma. She was last evaluated 03-03-2023. S he reports difficulty catching her breath. She is using albuterol 1-2 times a day with exercise. She is taking Breo 1 puff daily. No interval steroids. No history of ER visits. She is taking Zyrtec, Sudafed and Flonase without improvement. Continued congestion and post nasal drip. She has a long history of recurrent headaches. She is taking Topamax and Emgality. She is concerned that allergies are playing a role in headaches. Asthma flares Spring and Fall season. No history of hospitalization. She was diagnosed with asthma as an adult. She reports post nasal drip and rhinorrhea. No decrease in sense of smell. She reports recurrent sinusitis. S he has a history of GERD and taking Tums or omeprazole. She works from home and no work exposures. T debbie, she reports no fevers, chills, night sweats or other constitutional symptoms, . * ROS: A LLERGY: Positive p er the HPI and history, otherwise unremarkable.? S PECIAL SENSES: Positve for n one. C ONSTITUTIONAL: Positive for n one. E NT: Positive p er the HPI and history, otherwise unremarkable.? R ESPIRATORY: Positive p er the HPI and history, otherwise unremakable.? O PHTHALMOLOGY: Positive for p er the HPI and history, otherwise unremarkable. E NDOCRINOLOGY: Positive for n one. C ARDIOLOGY: Positive for n one. G ASTROENTEROLOGY: Positive for n one. U ROLOGY: Positive for n one. D ERMATOLOGY: Positive for p er the HPI and history, otherwise unremakable. N EUROLOGY: Positive for n one. H EMATOLOGY/LYMPH: Positive for n one. M USCULOSKELETAL: Positive for n one. P SYCHOLOGY: Positive for n one. A ll other review of systems per the HPI and history, otherwise unremarkable. * Medical History: * Medications: T aking Trelegy Ellipta 100/62.5/25 MCG DPI 1 INHALATION PO QDAY , Notes to Pharmacist: *Please review and pick correct strength-formulation from VEASYT options. If intended option is not shown, discontinue and re-order from Quick Search*, Taking LEVOCETIRIZINE 5 mg tablet 1 tab(s) orally once a day (in the evening) , Taking AZELASTINE NASAL 137 mcg/inh spray 2 spray(s) intranasally 2 times a day , Taking Breo Ellipta 200-25 MCG/ACT Aerosol Powder Breath Activated 1 puff Inhalation Once a day , Taking ZyrTEC Allergy 10 MG Tablet 1 tab(s) orally once a day , Taking Montelukast Sodium 10 MG Tablet 1 tab(s) orally once a day , Taking Albuterol Sulfate HFA 108 (90 Base) MCG/ACT Aerosol Solution 2 puff(s) inhaled every 6 hours , Taking EMGALITY PREFILLED PEN GNLM 120 MG/ML SOLUTION DIRECTED SUBCUTANEOUSLY ONCE A MONTH , Notes to Pharmacist: *Please review for potential replacement for e-prescription and drug interaction check*, Taking Losartan Potassium-HCTZ 50- 12.5 MG Tablet 1 tab(s) orally once a day , Taking Levocetirizine Dihydrochloride 5 MG Tablet 1 tab(s) orally once a day (in the evening) , Taking Azelastine HCl 137 MCG/SPRAY Solution 2 spray(s) intranasally 2 times a day , Taking EPINEPHRINE AUTO- INJECTOR 0.3 MG KIT DIRECTED INTRAMUSCULARLY ONCE , Notes to Pharmacist: *Please review for potential replacement for e-prescription and drug interaction check*, Taking Trelegy Ellipta 200-62.5-25 MCG/ACT Aerosol Powder Breath Activated 1 puff Inhalation Once a day Objective: * Vitals: * Examination: G eneral examination: General appearance: p leasant, well-developed, well-nourished. HEENT: c onjunctiva are clear bilaterally, no tenderness to palpation of the sinuses, TM's without evidence of acute infection, turbinates 2+ swollen and pale inferiorly bilaterally, clear rhinorrhea is present, no polyps noted, no septal perforation, posterior oropharynx is clear, no exudates, no tongue swelling, and uvula is midline. Oral cavity: n ormal, no lesions. Neck, thyroid : s upple, non-tender, no anterior cervical lymphadenopathy. Breasts : n ot performed. Heart: R RR, S1-S2, no murmurs, no rubs, no gallops. Lungs: c lear to auscultation and percussion in all lung starr, no wheezes or crackles. Neurologic exam: u nremarkable. Skin: n ormal, no rash, dermatographism, urticaria, angioedema. Peripheral pulses: n ormal (2+) bilaterally. Back: n ormal. Extremities: n ormal ROM, no clubbing, no cyanosis, no edema. Genitalia: n ot performed. Assessment: * Assessment: 1. M oderate persistent asthma, uncomplicated - J45.40 (Primary) 2 . A llergic rhinitis due to pollen - J30.1 3 . A llergic rhinitis due to animal (cat) (dog) hair and dander - J30.81 4 . O ther allergic rhinitis - J30.89 5. O ther chronic allergic conjunctivitis - H10.45 6 . S hortness of breath - R06.02 Plan: * Treatment: 2. A llergic rhinitis due to pollen Start LEVOCETIRIZINE tablet, 5 mg, 1 tab(s), orally, once a day (in the evening), 30 day(s), 30, Refills 0; S tart AZELASTINE NASAL spray, 137 mcg/inh, 2 spray(s), intranasally, 2 times a day, 30 day(s), 1, Refills 3. Notes: Li clearly suffers from atopic disease based upon our skin testing and clinical history. Accordingly, we have introduced a new, aggressive medication regimen, discussed nasal washes and allergy-specific avoidance measures. We also discussed adjunctive therapies including subcutaneous, specific allergen immunotherapy as relates to the treatment and prevention of atopic disease. She is currently considering the risks, benefits and alternatives to this care. Risks: bleeding, infection, allergic reaction, anaphylaxis; Benefits: reduced need for medications, improved symptoms, disease modification. Alternatives: watch/wait, change medication regimen, improve allergy avoidance measures. Follow-up in 1 month for interval evaluation and management 3. A llergic rhinitis due to animal (cat) (dog) hair and dander Notes: Follow allergen avoidance, meds and consider SCIT as an adjunctive treatment to current regimen 4. O ther allergic rhinitis Notes: Follow allergen avoidance, meds and consider SCIT as an adjunctive treatment to current regimen 5. O ther chronic allergic conjunctivitis Notes: Given ocular signs and symptoms I encouraged allergy avoidance measures and meds as above. If symptoms persist, consider adding additional medications including intraocular antihistamine/mast cell stabilizer, PRN and consider SCIT as an adjunctive measure * Preventive Medicine: Counseling: M edication instruction: W atch for side effects of prescribed medications, Nasal steroid/antihistamine instruction: avoid septum. E ducation: G ENERAL EDUCATION: Our staff spent an additional 30 minutes in direct contact with the patient educating them on their current diagnoses and proper treatment and prevention of symptoms and the proper use of medications. E ducation 2: A RC EDUCATION: Our staff discussed the appropriate allergen avoidance measures and medication utilization including upper airway hygiene with daily nasal washes given the patient's clinical status and diagnoses. SCIT EDUCATION: Discussed allergy immunotherapy including the relative risks, benefits and alternatives to this treatment as an adjunctive measure to current therapy, Allergy Immunotherapy: Risks: bleeding, infection, allergic reaction, anaphylaxis = severe allergic reaction that can cause ; Benefits: reduced need for medications, improved symptoms, disease modification. Alternatives: watch/wait, change medication regimen, improve allergy avoidance measures, Our staff discussed the warning signs of anaphylaxis and the indications to use self-injectable epinephrine and seek urgent or emergent care. P atient education material sent to portal? Y es C are goal follow up plan BMI management provided Y es Above Normal BMI Follow-up D ietary management education, guidance, and counseling B P Management: FIRST HYPERTENSIVE BP READING FOLLOW-UP PLAN: F ollow-up 1 month REFERRAL TO ALTERNATIVE / PRIMARY CARE PROVIDER: R mikkierral to general physician * Follow Up: 4 Weeks (Reason: Evaluation and Management) * Billing Information: * Visit Code: * Procedure Codes: * Electronic signature of Jennie Lance MD on 08/09/2025 at 08:09 AM PHYSICAL DESIGN ENGINEER Sign off status: Pending * Provider: Christopher Lance MD Date: 0 04/05/2024 Generated for Wendy moreno/Esau/Joseitting on: 1 10/10/2024 08:09 AM PHYSICAL DESIGN ENGINEER History and Physical Notes * HPI (History of Present Illness) Category Sub-Category Detail Notes Category Not es *Introduction HPI: Li Marquez, a [age] year old with asthma and migraines presenting for f/u evaluation of rhinitis and asthma. She was last evaluated 03-03-2023. She reports difficulty catching her breath. She is using albuterol 1-2 times a day with exercise. She is taking Breo 1 puff daily. No interval steroids. No history of ER visits. She is taking Zyrtec, Sudafed and Flonase without improvement. Continued congestion and post nasal drip. She has a long history of recurrent headaches. She is taking Topamax and Emgality. She is concerned that allergies are playing a role in headaches. Asthma flares Spring and Fall season. No history of hospitalization. She was diagnosed with asthma as an adult. She reports post nasal drip and rhinorrhea. No decrease in sense of smell. She reports recurrent sinusitis. She has a history of GERD and taking Tums or omeprazole. She works from home and no work exposures. Today, she reports no fevers, chills, night sweats or other constitutional symptoms, Examination Category Sub-Category Detail Notes Category Not es General examination HEENT: conjunctiva are clear bilaterally, no tenderness to palpation of the sinuses, TM's without evidence of acute infection, turbinates 2+ swollen and pale inferiorly bilaterally, clear rhinorrhea is present, no polyps noted, no septal perforation, posterior oropharynx is clear, no exudates, no tongue swelling, and uvula is midline Neck, thyroid : supple, non-tender, no anterior cervical lymphadenopathy Heart: RRR, S1-S2, no murmu rs, no rubs, no gallops Lungs: clear to auscultatio n and percussion in all lung starr, no wheezes or crackles Abdomen: Extremities: normal ROM, no clubb ing, no cyanosis, no edema General appearance: pleasant, well-devel oped, well-nourished Skin: normal, no rash, veronica matographism, urticaria, angioedema Neurologic exam: unremarkable Oral cavity: normal, no lesions Breasts : not performed Peripheral pulses: normal (2+) bilatera lly Back: normal Genitalia: not performed
--- OUTSIDE RECORDS SUMMARY | 2024-05-10 11:30 | XMS_ITS ---
Author Organization [employer] [facility] [employer] [place] ([address]) Address [address] [place] [address] Care Team Providers Care Special Forces Communications Sergeant Name Role Phone Mihir Vale Primary Care Provider Unavail able Lian Lance Unavailable [phone] REASON FOR VISIT Asthma follow-up - recent [...] review and pick correct strength-formulat ion from [employer] [place] options. If intended option is not shown, discontinue and re-order from Quick Search* Active Breo Ellipta 200-25 MCG/ACT 1 puff Inhalation Once a day Active Encounters Encounter Location Date Provider Diagnosis [facility] [address] [address] 05/10/2024 Lian Natalio Allergic rhinitis du e [...] * Li MARQUEZDOB:1970 ( 55 yo F)Acc No.[id number]:05/10/2024 Progress Notes Patient: Li BLACKWELL Provider: Christopher Lance MD :1970 A ge:53 Y S ex:Female Date:05/10/2024 Address:[address] [place], [place] [phone] Pcp:Mihir Vale Subjective: * Chief Complaints: * [...] *Please review and pick correct strength-formulation from [place] options. If intended option is not shown, [...] Lance MD on 08/09/2025 at 08:10 AM DSP ENGINEER Sign off status: Pending * Provider: Christopher Lance MD Date: 0 05/10/2024 Generated for Wendy moreno/Esau/Joseitting on: 1 10/10/2024 08:10 AM DSP ENGINEER History and Physical Notes * HPI [...]
--- OUTSIDE RECORDS SUMMARY | 2024-06-07 10:00 | XMS_ITS ---
Author Organization [facility] [employer] [place] ([address]) Address [address] [place] [address] Care Team Providers Care Ela Teacher Name Role Phone Mihir Vale Primary Care Provider Unavail able Lian Lance Unavailable [phone] Medications Medication SIG (Take, Route, Frequency, Duration) [...] review and pick correct strength-formulat ion from [employer] options. If intended option is not shown, [...] Active Encounters Encounter Location Date Provider Diagnosis [facility] [address] [place] [address] 06/07/2024 Lian Lance Plan Of Treatment No Information Progress Notes * Li MARQUEZDOB:1970 ( 55 yo F)Acc No.[id number]:06/07/2024 Progress Notes Patient: Sam BLACKWELLia Provider: Christopher Lance MD :1970 A ge:53 Y S ex:Female Date:06/07/2024 Address:[address] [place], [place] [phone] Pcp:Mihir Vale Subjective: * Chief Complaints: * [...] *Please review and pick correct strength-formulation from [employer] options. If intended option is not shown, [...] Lance MD on 08/09/2025 at 08:10 AM REVENUE DIRECTOR Sign off status: Pending * Provider: Christopher Lance MD Date: 1 Generated for Wendy moreno/Esau/Ruben on: 1 10/10/2024 08:10 AM REVENUE DIRECTOR
--- OUTSIDE RECORDS SUMMARY | 2025-08-09 08:10 | XMS_ITS | Encounter Summary ---
Author Organization [facility] Address [address] [place] [address] Care Team Providers Care Magnet Valve Assembler Name Role Phone SybilCyndy vital Ct EVENT MARKETING SPECIALIST Primary Care Provider [phone] Encounter Details Date Type Department Care Team (Late Contact Info) Description 06/14/2025 [employer] Message Enc [facility] General Surgery [address], [facility] [address] [place] [address] [facility] Schedule Consultation Appointment Social History Tobacco Use Types Packs/Day Years Used Date Smoking Tobacco: Never Passive Smoke Exposure: Never Smokeless Tobacco: Never Alcohol Use Standard Drinks/Week Comments Yes 2 (1 standard drink = 0.6 oz pur e alcohol) social PHQ-2 Answer Date Recorded Patient Health Questionnaire-2 Score 0 12/19/2024 Comments No Sex and Gender Information Value Date Recorded Sex Assigned at Female 11/25/2024 9:43 PM CDT Legal Sex Female 4:12 PM PUBLIC POLICY PROFESSOR Gender Identity Female 12/19/2024 11:46 AM CDT Sexual Orientation Straight 12/19/2024 11 :46 AM CDT documented as of this encounter Plan of Treatment Upcoming Encounters Date Type Department Care Team (Late st Contact Info) Description 09/21/2025 1:40 PM PUBLIC POLICY PROFESSOR Office Visit [facility]pecialty Care - [address], [address] [place] [phone] Suzi Prieto MD [address] [place] [address] 10/31/2025 2:20 PM PUBLIC POLICY PROFESSOR [facility] [address] [facility], [address] [place] [address] Zoe Price, SHADY [address] [facility] [address] [place] [address] 02/12/2026 10:40 AM CDT Office Visit [facility] [address] [facility] [address] [place] [address] Mihir Bird DO [address] [facility] [address] [place] [address] documented as of this encounter Visit Diagnoses Not on filedocumented in this encounter Care Teams Magnet Valve Assembler Relationship Specialty Start Date End Date Cyndy Devine, EVENT MARKETING SPECIALIST [address] [facility] [address] [place] [address] PCP - General NURSE PRACTITIONER 04/19/24 documented as of this encounter
--- OUTSIDE RECORDS SUMMARY | 2025-08-09 08:10 | XMS_ITS | Encounter Summary ---
Author Organization [facility] Address [address] [place] [address] Care Team Providers Care Department Store Manager Name Role Phone SybilCyndy vital Ct PRISON PSYCHIATRIST Primary Care Provider [phone] Encounter Details Date Type Department Care Team (Late Contact Info) Description 05/31/2025 [employer] Message Enc [facility] General Surgery [address], [facility] [address] [place] [address] [facility] Provider Schedule Consultation Appointment Social History [...] PM CDT Legal Sex Female 4:12 PM BOOKKEEPER ASSISTANT Gender Identity Female 12/19/2024 11:46 AM CDT Sexual Orientation Straight 12/19/2024 11 :46 AM CDT documented as of this encounter Plan of Treatment Upcoming Encounters Date Type Department Care Team (Late st Contact Info) Description 09/21/2025 1:40 PM BOOKKEEPER ASSISTANT Office Visit [facility] Mult[facility]pec[facility]ty Care - [address], [address] [place] [phone] Suzi Prieto MD [address] [place] [address] 10/31/2025 2:20 PM BOOKKEEPER ASSISTANT Office Visit [facility] [address] [facility], [address] [place] [address] Zoe Priec, SHADY [address] [facility] [address] [place] [address] 02/12/2026 10:40 AM CDT Office Visit [facility] [address] [facility] [address] [place] [address] Mihir Bird DO [address] [facility] [address] [place] [address] documented as of this encounter Visit Diagnoses Not on filedocumented in this encounter Care Teams Department Store Manager Relationship Specialty Start Date End Date Cyndy Devine, PRISON PSYCHIATRIST [address] [facility] [address] [place] [address] PCP - General NURSE PRACTITIONER 04/19/24 documented as of this encounter
--- OUTSIDE RECORDS SUMMARY | 2025-08-09 08:10 | XMS_ITS | Encounter Summary ---
Author Organization [facility] Address [facility] [place] [address] Care Team Providers Care Interactive Media Project Manager Name Role Phone Cyndy Devine GALVANIZER Primary Care Provider [phone] Encounter Details Date Type Department Care Team (Late st Contact Info) Description 10/12/2024 My[facility] [place] [address] [place] [address] Cyndy Devine, GALVANIZER [address] [place] [address] Emgality Social History Tobacco Use Types Packs/Day Years Used Date Smoking Tobacco: Never Passive Smoke Exposure: Never Smokeless Tobacco: Never Alcohol Use Standard Drinks/Week Comments Yes 0 (1 standard drink = 0.6 oz pur e alcohol) social Comments No Sex and Gender Information Value Date Recorded Sex Assigned at Female 11/25/2024 9:43 PM CDT Legal Sex Female 4:12 PM SERVICE WRITER ADVISOR Gender Identity Female 12/19/2024 11:46 AM CDT Sexual Orientation Straight 12/19/2024 11 :46 AM CDT documented as of this encounter Plan of Treatment Upcoming Encounters Date Type Department Care Team (Late st Contact Info) Description 09/21/2025 1:40 PM SERVICE WRITER ADVISOR Office Visit [facility] - [address], [address] [place] [phone] Suzi Prieto MD [address] [place], [place] [address], [place] [address] 10/31/2025 2:20 PM SERVICE WRITER ADVISOR [facility] [address] [facility], [address] [place] [address] Zoe Price, SHADY [address] [facility] [address] [place] [address] 02/12/2026 10:40 AM CDT Office Visit [facility] - [address] [place] [address] Mihir Bird DO [address] [facility] [address] [place] [address] documented as of this encounter Visit Diagnoses Not on filedocumented in this encounter Care Teams Interactive Media Project Manager Relationship Specialty Start Date End Date Cyndy Devine, GALVANIZER [address] [facility] [address] [place] [address] PCP - General NURSE PRACTITIONER 04/19/24 documented as of this encounter
--- OUTSIDE RECORDS SUMMARY | 2025-08-09 08:10 | XMS_ITS | Clinical Summary ---
Author Organization [facility] Administrative Offices Address [address] [place] [address] Care Team Providers Care Hand Bulldozer Name Role Phone Stephen Gerber MD Primary Care Provider [phone] Family History Medical History Relation Name Comments Breast Cancer Neg Hx Ovarian Cancer Neg Hx Social History Tobacco Use Types Packs/Day Years Used Date Smoking Tobacco: Never Assessed Comments Unknown Sex and Gender Information Value Date Recorded Sex Assigned at Not on file Legal Sex Female 10:03 AM GEOLOGIC TECHNICIAN Gender Identity Not on file Sexual Orientation Not on file Plan of Treatment Health Maintenance Due Date Last Done Comments DTAP/TDAP/TD VACCINES (1 - Tdap) 1990 HEPATITIS B VACCINES (1 of 3 - 19+ 3-dose series) 07/09 HPV/Cotest (21-29) 1992 CERVICAL CANCER SCREENING 2001 HPV/Cotest (30-65) 2001 PAP SMEAR 2001 BREAST CANCER SCREENING 07/22/2016 07/22/2015 COLORECTAL SCREENING 2016 Colorectal Cancer Screening 2016 FIT-DNA Q 3 years 2016 FIT/FOBT Q 1 year 2016 Flex Sig/CT Colonography Q 5 years 2016 ZOSTER VACCINE (1 of 2) 2021 INFLUENZA VACCINE (#1) 2025 Procedures Procedure Name Priority Date/Time Associated Diagnosis Comments MAMMO SCREEN BILAT W OR WO CAD Routine 07/22/2015 3:24 PM GEOLOGIC TECHNICIAN Visit for screening mammogram from Last 3 Months or Most Recently Relevant to Health Maintenance Results * MAMMO DIGITAL SCREEN BILAT (07/22/2015 3:24 PM GEOLOGIC TECHNICIAN) Anatomical Region Laterality Modality Breast Bilateral Mammography 07/22/2015 2:06 PM GEOLOGIC TECHNICIAN Addenda Addendum by Jay Hart MD on 08/02/2015 11:16 AM GEOLOGIC TECHNICIAN ADDENDUM: Outside films are made available for review dated 01/19/2012 from [facility]. FINDINGS: There is a partially circumscribed mass identified within the right breast at the 6:00 position which was not present on the previous examination. This measures 16 mm and is centered 7.5 cm posterior to the nipple. No concerning microcalcifications identified. The contralateral breast is unremarkable. Overall assessment: BI-RADS category 0: Incomplete- need additional imaging evaluation RECOMMENDATIONS: 1. Recommend ultrasound of the right breast followed by diagnostic mammogram if necessary for what may represent a developing cyst in the breast at the 6:00 position. LOCATION: Dictated from [facility] Narrative 07/25/2015 9:07 AM GEOLOGIC TECHNICIAN BILATERAL DIGITAL SCREENING MAMMOGRAM WITH CAD DATE: Jul 22, 2015 02:06:29 PM INDICATION: Routine yearly screening mammogram. TECHNIQUE: Standard images were obtained of both breasts on a digital system. CAD was utilized. COMPARISON: None available. FINDINGS: Comparisons will be obtained and an addendum dictated when these films are made available. OVERALL ASSESSMENT: BI-RADS Category 0: Incomplete. Needs prior mammograms for comparison. RECOMMENDATIONS: Recommend obtain outside studies for comparison. An addendum will be dictated when these films become available. Dictated from [facility] Procedure Note Jay Hart MD - 07/25/2015 BILATERAL DIGITAL SCREENING MAMMOGRAM WITH CAD DATE: Jul 22, 2015 02:06:29 PM INDICATION: Routine yearly screening mammogram. TECHNIQUE: Standard images were obtained of both breasts on a digital system. CAD was utilized. COMPARISON: None available. FINDINGS: Comparisons will be obtained and an addendum dictated when these films are made available. OVERALL ASSESSMENT: BI-RADS Category 0: Incomplete. Needs prior mammograms for comparison. RECOMMENDATIONS: Recommend obtain outside studies for comparison. An addendum will be dictated when these films become available. Dictated from [facility] Bulmaro Lacey MD MAMMO ORDERABLES Edited Result - Final from Last 3 Months or Most Recently Relevant to Health Maintenance Insurance [facility] [employer] Care Teams Hand Bulldozer Relationship Specialty Start Date End Date Stephen Gerber MD [address] [facility] [place] [address] PCP - General Family Practice 07/18/15
--- OUTSIDE RECORDS SUMMARY | 2025-08-09 08:10 | XMS_ITS | Clinical Summary ---
Author Organization [facility] Address [address] [place] [address] Care Team Providers Care Field Account Director Name Role Phone Cyndy Devine VETERINARY MEDICAL OFFICER Primary Care Provider Allergies Active Allergy Reactions Criticality Noted Date Comments Hydrochlorothiazide Other (see comment) 025 Hypokalemia Seasonal Chest pressure,Cough ,Eyes Water & Itch,GI Upset,Headache,Runny Nose,Shortness of Breath,Sneezing High 07/04/2024 Medications azelastine (ASTELIN) 0.1 % nasal spray every 12 (twelve) hours. Active fluticasone propionate (FLONASE) 50 MCG/ACT nasal spray 1 spray by Each Nostril route daily. 06/29/20 24 Active ferrous sulfate, 65 mg elemental, 325 (65 FE) MG tablet Take 1 tablet (325 mg total) by mouth daily with breakfast. 30 tablet 11/26/19 25 Active Additional Information Patient not taking.Reason: pt states no taking, Reported on 07/16/2025 vitamin D2, ergocalciferol, (DRISDOL) 1.25 mg capsuleIndicati ons:Vitamin D deficiency Take 1 capsule (50,000 Units total) by mouth every 7 days. 12 capsule 1 01/06/20 25 Active losartan (COZAAR) 100 MG tabletIndicatio ns:Hypertension , unspecified type TAKE 1 TABLET(100 MG) BY MOUTH DAILY 90 tablet 1 01/18/20 25 Active folic acid (FOLVITE) 1 MG tabletIndicatio ns:Folate deficiency Take 1 tablet (1 mg total) by mouth daily. 90 tablet 1 03/29/20 25 Active TRELEGY ELLIPTA 200-62.5-25 MCG/ACT AEROSOL POWDER, BREATH ACTIVATEDIndica tions:Moderate persistent asthma without complication (HHS/HCC) Inhale 1 puff into the lungs daily. 1 each 2 05/14/20 Active EMGALITY 120 MG/ML Solution Auto-injectorIn dications:pt has failed topamax x 4 months and propranolol x 2 months. also has failed sumatriptan and ubrelvy. Inject 120 mg into the skin every 30 (thirty) days. Indications: pt has failed topamax x 4 months and propranolol x 2 months. also has failed sumatriptan and ubrelvy. 1 mL 2 05/30/20 Active ubrogepant (UBRELVY) 100 MG tabletIndicatio ns:Migraine with aura and without status migrainosus, not intractable Take 1 tablet (100 mg total) by mouth 2 (two) times daily as needed for Migraine. Max of 2 tablets (200 mg) in 24 hours 10 tablet 05/30/20 Active Additional Information Patient not taking.Reason: Pt states not taking, Reported on 07/16/2025 hydrocortisone (ANUSOL-HC) 25 MG suppositoryIndi cations:Bloody stool,Internal hemorrhoids Insert 1 suppository rectal 2 times daily as needed for hemorrhoids x 7 days. 20 suppository 05/30/20 Active Additional Information Patient taking differently: 2 times daily PRN, Insert 1 suppository rectal 2 times daily as needed for hemorrhoids x 7 days., Reported on 07/16/2025 topiramate (TOPAMAX) 25 MG tabletIndicatio ns:Migraine with aura and without status migrainosus, not intractable Take 1 tablet (25 mg total) by mouth daily. 90 tablet 05/30/20 25 Active cetirizine (ZYRTEC) 10 MG tabletIndicatio ns:Allergic rhinitis due to other allergic trigger, unspecified seasonality Take 1 tablet (10 mg total) by mouth nightly. 90 tablet 05/30/20 25 Active amLODIPine (NORVASC) 5 MG tabletIndicatio ns:Primary hypertension Take 1 tablet (5 mg total) by mouth daily. 90 tablet 05/30/20 25 Active Albuterol-Budes onide (AIRSUPRA) 90-80 MCG/ACT AerosolIndicati ons:Moderate persistent asthma without complication (HHS/HCC) Inhale 2 puffs into the lungs as needed (for shortness of breath/wheezing. max 12 puffs/24 hours. rinse mouth after use). 32.1 g 1 05/30/20 25 Active Azelaic Acid 20 % CreamIndication s:Melasma Apply 1 Application topically 2 (two) times daily. To skin discoloration of the face 20 g 2 05/31/20 25 Active Additional Information Patient not taking.Reason: pt states not taking, Reported on 07/16/2025 montelukast (SINGULAIR) 10 MG tabletIndicatio ns:Allergic rhinitis due to other allergic trigger, unspecified seasonality TAKE 1 TABLET(10 MG) BY MOUTH DAILY 30 tablet 07/03/20 25 Active omeprazole (PRILOSEC) 20 MG capsuleIndicati ons:Gastroesoph ageal reflux disease without esophagitis Take 1 capsule (20 mg total) by mouth daily. 90 capsule 1 07/12/20 25 Active losartan-hydroC HLOROthiazide (HYZAAR) 50-12.5 MG tablet daily. Active SUMAtriptan (IMITREX) 25 MG tablet Take 1 tablet (25 mg total) by mouth 2 (two) times daily as needed. 05/03/20 25 Active omeprazole (PRILOSEC) 20 MG capsuleIndicati ons:Gastroesoph ageal reflux disease without esophagitis Take 1 capsule (20 mg total) by mouth daily. 90 capsule 1 04/19/20 24 025 Disconti nued(Reo rder) Active Problems Problem Noted Date Diagnosed Date SHIVANI (obstructive sleep apnea) 03/01/2025 Anemia, unspecified type 12/29/2024 Gastroesophageal reflux dise ase with esophagitis without hemorrhage 12/19/2024 Hypokalemia 12/04/2024 Iron deficiency anemia due to chronic blood loss 12/04/2024 Gastroesophageal reflux disease without esophagi tis 06/01/2024 Class 1 obesity without seri ous comorbidity with body mass index (BMI) of 33.0 to 33.9 in adult, unspecified obesity type 06/01/2024 Hypertension, unspecified type 06/01/2024 Migraine with aura and witho ut status migrainosus, not intractable 06/01/2024 Edema, unspecified type 06/01/2024 Allergic rhinitis due to oth er allergic trigger, unspecified seasonality 06/01/2024 Asthma 06/20/2019 Resolved Problems Problem Noted Date Diagnosed Date Resolved Date Encounter for screening colonoscopy 12/29/2024 01/08/2025 Encounter for screening colonoscopy 12/19/2024 12/25/2024 Encounter for screening colonoscopy 12/19/2024 01/01/2025 Encounters Date Type Department Care Team Description 07/16/2025 11:00 AM MEDICAL LAB TECHNOLOGIST [facility] [place] - [address], [address] [place] [address] Zoe Price NP Establish Care (Daily chronic headaches, having one currently. ) 07/16/2025 Therapy Plan [facility] - [address], [address] [place] [address] Suzi Prieto MD 07/16/2025 Telephone [facility] - [address], [address] [place] [address] Zoe Price NP Appointment Request (Botox appt needs changed) 07/16/2025 Travel 06/14/2025 MyChart Message Enc [facility] General Surgery [address], [address] [place] [address] [facility] Schedule Consultation Appointment 06/07/2025 MyChart Message Enc [address], [address] [place] [address] Katlyn, [facility] Provider Schedule Consultation Appointment 06/05/2025 [facility] [address] [place], [place] [id number] Cyndy Devine NP Prior Authorization 06/01/2025 Telephone To [facility] [place] [address] [place] [address] Katrin Hall RMA Schedule Test (Reg stress) 05/31/2025 MyChart Message Enc [facility] General Surgery [facility] [address] [place] [address], [address] [place] [address] Katlyn, [facility] Provider Schedule Consultation Appointment 05/30/2025 4:20 PM CDT [facility] [place] [facility] [place] [address] [place] [address] Cyndy Devine, VETERINARY MEDICAL OFFICER Headache 05/30/2025 Travel 05/17/2025 MyChart Message Enc [facility] [place] [facility] [place] [address] [place] [address] Cyndy Devine, VETERINARY MEDICAL OFFICER Jeramy Daigle from Last 3 Months Immunizations Immunization Administration Dates Next Due Influenza Adult (Generic) 07/01/2023,09/01/2021, 06/06/2018 Pneumococcal (Prevnar 20) 07/01/2023 Shingrix 12/17/2023,07/01/2023 Tdap (Generic) 03/16/2016 Family History Medical History Relation Comments Diabetes Mother Relation Status Comments Father Alive Mother Alive Social History Tobacco Use Types Packs/Day Years Used Date Smoking Tobacco: Never Passive Smoke Exposure: Never Smokeless Tobacco: Never Tobacco Cessation:Counseling Given: No Alcohol Use Standard Drinks/Week Comments Yes 2 (1 standard drink = 0.6 oz pur e alcohol) social PHQ-2 Answer Date Recorded Patient Health Questionnaire-2 Score 0 12/19/2024 Comments No Sex and Gender Information Value Date Recorded Sex Assigned at Female 11/25/2024 9:43 PM CDT Legal Sex Female 4:12 PM MEDICAL LAB TECHNOLOGIST Gender Identity Female 12/19/2024 11:46 AM CDT Sexual Orientation Straight 12/19/2024 11 :46 AM CDT Last Filed Vital Signs Vital Sign Reading Time Taken Comments Blood Pressure 126/85 07/16/2025 11:17 AM MEDICAL LAB TECHNOLOGIST Pulse 88 07/16/2025 11:17 AM MEDICAL LAB TECHNOLOGIST Temperature 36.7 C (98.1 F) 05/30/2025 4:10 PM CDT Respiratory Rate 19 05/30/2025 4:10 PM CDT Oxygen Saturation 100% 07/16/2025 11:17 AM MEDICAL LAB TECHNOLOGIST Inhaled Oxygen Concentration - - Weight 77.2 kg (170 lb 1.6 oz) 07/16/2025 11:17 AM MEDICAL LAB TECHNOLOGIST Height 149.9 cm (4' 11) 07/16/2025 11:17 AM MEDICAL LAB TECHNOLOGIST Body Mass Index 34.36 07/16/2025 11:17 AM MEDICAL LAB TECHNOLOGIST Plan of Treatment Upcoming Encounters Date Type Department Care Team (Late st Contact Info) Description 09/21/2025 1:40 PM MEDICAL LAB TECHNOLOGIST Office Visit [facility] - [address], [address] [place] [phone] Suzi Prieto MD [address] [place] [phone] 10/31/2025 2:20 PM MEDICAL LAB TECHNOLOGIST Office Visit [facility] - [address], [address] [place] [phone] Zoe Price NP [address] [facility] [address] [place] [id number] 02/12/2026 10:40 AM CDT Office Visit [facility] - [address] [place] [phone] Mihir Bird DO [address] [facility] [address] [place], [place] [address] Health Maintenance Due Date Last Done Comments Cervical Cancer Screening Pap Smear (Age 30 to 64) Every 3 Years 1971 Hepatitis B Vaccines (1 of 3 - 19+ 3-dose series) 1990 Annual Physical 04/19/2025 04/19/2024 COVID-19 Vaccine (3 - 2024- season) 2025 12/16/2020, 11/25/2020 Influenza Adult (#1) 2025 07/01/2023, 09/01/2021, 06/06/2018 DTaP, Tdap and Td Vaccines (2 - Td or Tdap) 03/16/2026 03/16/2016 Mammogram Screening 05/02/2026 05/02/2024, 05/02/2024, 01/07/2023, Additional history exists Cervical Cancer Screening Pap with HPV Testing (Age 30 to 64) Every 5 Years 04/11/2029 04/11/2024 Cervical Cancer Screening with HPV 04/11/2029 Colorectal Cancer Screening Colonoscopy (10 Years) 01/04/2035 01/04/2025 Pneumococcal Vaccine: 50+ Years Completed 07/01/2023 Zoster Vaccines Completed 12/17/2023, 07/01/2023 Hepatitis C Completed 04/19/2024 Colorectal Cancer Screening FIT-DNA (3 Years) Discontinued 05/29/2024, 05/29/2024, 12/10/2020 PHQ-2 (Physician [place]) Completed 12/19/2024 Hepatitis A Vaccines Aged Out No long er eligible based on patient's age to complete this topic Meningococcal B Vaccine Aged Out No l onger eligible based on patient's age to complete this topic Meningococcal Vaccine Aged Out No rick yonatan eligible based on patient's age to complete this topic RSV Immunizations Under 20 Months Aged Out No longer eligible based on patient's age to complete this topic Procedures Procedure Name Priority Date/Time Associated Diagnosis Comments COLOGUARD (EXACT SCIENCE) Routine 05/29/2024 11:50 AM CDT Screening for colon cancer MAMMOGRAM GENERIC (SCAN ORDER) 05/02/2024 HEPATITIS C ANTIBODY Routine 04/19/2024 3:50 PM CDT Need for hepatitis C screening test OUTSIDE CYTOPATH CERV/VAG INTERPRET (PAP) 04/11/2024 from Last 3 Months or Most Recently Relevant to Health Maintenance Results * COLOGUARD (EXACT SCIENCE) (05/29/2024 11:50 AM CDT) COLOGUARD RESULT Negative Negative [facility] (CLIA #:[id number]) Comment: NEGATIVE TEST RESULT. A negative Cologuard result indicates a low likelihood that a colorectal cancer (CRC) or advanced adenoma (adenomatous polyps with more advanced pre-malignant features) is present. The chance that a person with a negative Cologuard test has a colorectal cancer is less than 1 in 1500 (negative predictive value >99.9%) or has an advanced adenoma is less than 5.3% (negative predictive value 94.7%). These data are based on a prospective cross-sectional study of 10,000 individuals at average risk for colorectal cancer who were screened with both Cologuard and colonoscopy. (Landon Long et al, N Engl J Med 2014;370(14):1986-1260) The normal value (reference range) for this assay is negative. COLOGUARD RE-SCREENING RECOMMENDATION: Periodic colorectal cancer screening is an important part of preventive healthcare for asymptomatic individuals at average risk for colorectal cancer. Following a negative Cologuard result, the [place] [employer] Society and U.S. Multi-Society Task Force screening guidelines recommend a Cologuard re-screening interval of 3 years. References: [place] [employer] Guideline for Colorectal Cancer Screening: https://www.cancer.org/cancer/pipkx-mgkmyg-tcoqqj/grbormpkr-txtumkwzj-bwnlalx/ac s-rec ommendations.html.; Navarro MCCALLUM, Toy CHACON, Gisel WhiteK, Colorectal Cancer Screening: Recommendations for Physicians and Patients from the U.S. Multi-Society Task Force on Colorectal Cancer Screening , Am J Gastroenterology 2017; 112:5950-4922. TEST DESCRIPTION: Composite algorithmic analysis of stool DNA-biomarkers with hemoglobin immunoassay. Quantitative values of individual biomarkers are not reportable and are not associated with individual biomarker result reference ranges. Cologuard is intended for colorectal cancer screening of adults of either sex, 45 years or older, who are at average-risk for colorectal cancer (CRC). Cologuard has been approved for use by the U.S. FDA. The performance of Cologuard was established in a cross sectional study of average-risk adults aged 50-84. Cologuard performance in patients ages 45 to 49 years was estimated by sub-group analysis of near-age groups. Colonoscopies performed for a positive result may find as the most clinically significant lesion: colorectal cancer [4.0%], advanced adenoma (including sessile serrated polyps greater than or equal to 1cm diameter) [20%] or non- advanced adenoma [31%]; or no colorectal neoplasia [45%]. These estimates are derived from a prospective cross-sectional screening study of 10,000 individuals at average risk for colorectal cancer who were screened with both Cologuard and colonoscopy. (Landon Donovan. et al, N Engl J Med 2014;370(14):6060-2913.) Cologuard may produce a false negative or false positive result (no colorectal cancer or precancerous polyp present at colonoscopy follow up). A negative Cologuard test result does not guarantee the absence of CRC or advanced adenoma (pre-cancer). The current Cologuard screening interval is every 3 years. ([place] [employer] and U.S. Multi-Society Task Force). Cologuard performance data in a 10,000 patient pivotal study using colonoscopy as the reference method can be accessed at the following location: www.[employer]/results. Additional description of the Cologuard test process, warnings and precautions can be found at www.cologuard.com. STOOL STOOL SPECIMEN / Unknown 05/29/2024 11:50 AM CDT 05/31/2024 1:50 PM CDT us Cyndy Devine NP BODY FLUIDS AND STOOLS ADA PIPER Final Result [employer], [email or web address] [address] [place] [address], [employer] (CLIA #:[id number]) [address] [place] [address] * MAMMOGRAM GENERIC (SCAN ORDER) (05/02/2024) Anatomical Region Laterality Modality Other 05/02/2024 [facility] [employer] Scanned SCANNING Final Resu lt * HEPATITIS C ANTIBODY (04/19/2024 3:50 PM CDT) HEPATITIS C AB NON-REACTI VE NON-REACT HILARIO 04/19/2024 10:27 PM CDT [facility] Comment: ANTIBODIES TO HCV NOT DETECTED. DOES NOT EXCLUDE THE POSSIBILITY OF EXPOSURE TO HCV. 04/19/2024 3:50 PM CDT Cyndy Devine NP LABORATORY Final Resul t [facility] [address] [place] [address], [place] [phone] [id number] * PAP SMEAR WITH HPV (04/11/2024) 04/11/2024 [employer] [facility] Scanned SCANNING Final Resu lt from Last 3 Months or Most Recently Relevant to Health Maintenance Insurance [facility] Care Teams Field Account Director Relationship Specialty Start Date End Date Cyndy Devine NP [address] [place] [address] PCP - General NURSE PRACTITIONER 04/19/24
--- OUTSIDE RECORDS SUMMARY | 2025-08-09 08:10 | XMS_ITS | Encounter Summary ---
Author Organization [facility] Address [facility] [place] [address] Care Team Providers Care Inspector Bicycle Name Role Phone Cyndy Devine COLON THERAPIST Primary Care Provider +1- [phone] Encounter Details Date Type Department Care Team (Late st Contact Info) Description 08/14/2024 MyChart Message Enc [facility] [place] [address] [place] [address] Cyndy Devine, COLON THERAPIST [address] [place] [address] Emgality Social History Tobacco Use Types Packs/Day Years Used Date Smoking Tobacco: Never Passive Smoke Exposure: Never Smokeless Tobacco: Never Alcohol Use Standard Drinks/Week Comments Yes 0 (1 standard drink = 0.6 oz pur e alcohol) social Comments No Sex and Gender Information Value Date Recorded Sex Assigned at Female 11/25/2024 9:43 PM CDT Legal Sex Female 4:12 PM METAL WASHING MACHINE OPERATOR Gender Identity Female 12/19/2024 11:46 AM CDT Sexual Orientation Straight 12/19/2024 11 :46 AM CDT documented as of this encounter Plan of Treatment Upcoming Encounters Date Type Department Care Team (Late st Contact Info) Description 09/21/2025 1:40 PM METAL WASHING MACHINE OPERATOR Office Visit [facility]pecialty [facility] - [address], [address] [place] [address] Suzi Prieto MD [address] [place] [address] 10/31/2025 2:20 PM METAL WASHING MACHINE OPERATOR [facility] [address] [facility], [address] [place] [address] Zoe Price NP 3 [facility] [address] [place] [address] 02/12/2026 10:40 AM CDT Office Visit [facility] - [address] [place] [address] Mihir Bird DO [address] [facility] [address] [place] [address] documented as of this encounter Visit Diagnoses Diagnosis Migraine with aura and without status migrainosus, not intractable- Primary Migraine with aura, without mention of intractable migraine without mention of status migrainosus documented in this encounter Care Teams Inspector Bicycle Relationship Specialty Start Date End Date Cyndy Devine COLON THERAPIST [address] [place] [address] PCP - General NURSE PRACTITIONER 04/19/24 documented as of this encounter
--- OUTSIDE RECORDS SUMMARY | 2025-08-09 08:10 | XMS_ITS | Encounter Summary ---
Author Organization [facility] Address [address] [place] [address] Care Team Providers Care Installation And Repair Technician Name Role Phone SybilCyndy vital Ct DEHYDRATING PRESS OPERATOR Primary Care Provider +1 [phone] Encounter Details Date Type Department Care Team (Late Contact Info) Description 06/07/2025 Philtro Message Enc [facility] General Surgery [address], [facility] [address] [place] [address] [facility] Provider Schedule Consultation Appointment Social History [...] PM CDT Legal Sex Female 4:12 PM BI TESTER Gender Identity Female 12/19/2024 11:46 AM CDT Sexual Orientation Straight 12/19/2024 11 :46 AM CDT documented as of this encounter Plan of Treatment Upcoming Encounters Date Type Department Care Team (Late st Contact Info) Description 09/21/2025 1:40 PM BI TESTER Office Visit [facility] Multispecialty Care - [address], [address] [place] [address] Suzi Prieto MD [address] [place] [address] 10/31/2025 2:20 PM BI TESTER [facility] [address] [facility], [address] [place] [address] Zoe Price, SHADY 3 [facility] [address] [place] [address] 02/12/2026 10:40 AM CDT Office Visit [facility] [address] [facility] [place] [address] Mihir Bird DO 3 [facility] [address] [place] [address] documented as of this encounter Visit Diagnoses Not on filedocumented in this encounter Care Teams Installation And Repair Technician Relationship Specialty Start Date End Date Cyndy Devine, DEHYDRATING PRESS OPERATOR [address] [facility] [address] [place] [address] PCP - General NURSE PRACTITIONER 04/19/24 documented as of this encounter
--- OUTSIDE RECORDS SUMMARY | 2025-08-09 08:11 | XMS_ITS | Encounter Summary ---
Author Organization [facility] Address [facility] [place] [address] Care Team Providers Care Secondary Teacher Name Role Phone Cyndy Devine RUBBER TIRE CURER Primary Care Provider [phone]- [phone] Encounter Details Date Type Department Care Team (Late st Contact Info) Description 12/14/2024 MyChart Message Enc [facility] [place] [address] [place] [address] Cyndy Devine, RUBBER TIRE CURER [address] [place] [address] Stomach Pain Social History Tobacco Use Types Packs/Day Years Used Date Smoking Tobacco: Never Passive Smoke Exposure: Never Smokeless Tobacco: Never Alcohol Use Standard Drinks/Week Comments Yes 0 (1 standard drink = 0.6 oz pur e alcohol) social Comments No Sex and Gender Information Value Date Recorded Sex Assigned at Female 11/25/2024 9:43 PM CDT Legal Sex Female 4:12 PM ESTIMATOR Gender Identity Female 12/19/2024 11:46 AM CDT Sexual Orientation Straight 12/19/2024 11 :46 AM CDT documented as of this encounter Plan of Treatment Upcoming Encounters Date Type Department Care Team (Late st Contact Info) Description 09/21/2025 1:40 PM ESTIMATOR Office Visit [facility] - [address], [address] [place] [address] Suzi Prieto MD [address] [place] [address] [address] 10/31/2025 2:20 PM ESTIMATOR [facility] 3 [facility], [address] [place] [address] Zoe Price, SHADY 3 [facility] [address] [place] [address] 02/12/2026 10:40 AM CDT Office Visit [facility] - [address] [place] [address] Mihir Bird DO 3 [facility] [address] [place] [address] documented as of this encounter Visit Diagnoses Not on filedocumented in this encounter Care Teams Secondary Teacher Relationship Specialty Start Date End Date Cyndy Devine, RUBBER TIRE CURER [address] [facility] [address] [place] [address] PCP - General NURSE PRACTITIONER 04/19/24 documented as of this encounter
--- OUTSIDE RECORDS SUMMARY | 2025-08-09 08:11 | XMS_ITS | Encounter Summary ---
Author Organization [facility] Address [address] [place] [address] Care Team Providers Care Veneer Jointer Returner Name Role Phone Sybil, Cyndy Ct MARKETING GRAPHICS SPECIALIST Primary Care Provider [phone]- [phone] Encounter Details Date Type Department Care Team (Late st Contact Info) Description 04/01/2023 [facility] [address] [place] [address] [facility] [place], [facility] Provider Payment Plan Social History Tobacco Use Types Packs/Day Years Used Date Smoking Tobacco: Never Passive Smoke Exposure: Never Smokeless Tobacco: Never Alcohol Use Standard Drinks/Week Comments Yes 0 (1 standard drink = 0.6 oz pur e alcohol) social Comments No Sex and Gender Information Value Date Recorded Sex Assigned at Female 11/25/2024 9:43 PM CDT Legal Sex Female 4:12 PM FUEL SYSTEM MAINTENANCE WORKER Gender Identity Female 12/19/2024 11:46 AM CDT Sexual Orientation Straight 12/19/2024 11 :46 AM CDT documented as of this encounter Plan of Treatment Upcoming Encounters Date Type Department Care Team (Late st Contact Info) Description 09/21/2025 1:40 PM FUEL SYSTEM MAINTENANCE WORKER [facility] [address] [facility], [address] [place] [address] Suzi Prieto MD 3 [place] [address] 10/31/2025 2:20 PM FUEL SYSTEM MAINTENANCE WORKER [facility] [address] [facility], [address] [place] [address] Zoe Price, SHADY 3 [facility] [place] [facility] [address] [place] [address] 02/12/2026 10:40 AM CDT Office Visit [facility] Mult[facility]pec[facility]ty Care - [facility] [address] [facility] [place] [address] Mihir Bird DO 3 [facility] [address] [place] [address] documented as of this encounter Visit Diagnoses Not on filedocumented in this encounter Additional Health Concerns Infection Onset Date Last Indicated Resolved Time COVID-19 Rule Out 07/04/2024 07/04/2024 07/04/2024 1:25 PM CDT documented as of this encounter Care Teams Veneer Jointer Returner Relationship Specialty Start Date End Date Cyndy Devine, MARKETING GRAPHICS SPECIALIST [address] [place] [address] PCP - General NURSE PRACTITIONER 04/19/24 documented as of this encounter
--- OUTSIDE RECORDS SUMMARY | 2025-08-09 08:11 | XMS_ITS | Encounter Summary ---
Author Organization [facility] Address [address] [place] [address] Care Team Providers Care Manager Wholesale Name Role Phone SybilCnydy vital Ct EXT JS DEVELOPER Primary Care Provider [phone] Encounter Details Date Type Department Care Team (Late Contact Info) Description 12/29/2024 ENDOGENX Message Enc [facility] General Surgery - [address] [place] [address] [place], [facility] Provider [facility] Information Social History Tobacco Use Types Packs/Day Years [...] PM CDT Legal Sex Female 4:12 PM GROUND CREW LINES PERSON Gender Identity Female 12/19/2024 11:46 AM CDT Sexual Orientation Straight 12/19/2024 11 :46 AM CDT documented as of this encounter Plan of Treatment Upcoming Encounters Date Type Department Care Team (Late Contact Info) Description 09/21/2025 1:40 PM GROUND CREW LINES PERSON Office Visit [facility] Multispecialty Care - [address], [address] [place] [address] Suzi Prieto MD 3 [place] [address] 10/31/2025 2:20 PM GROUND CREW LINES PERSON [facility] 3 [facility], [address] [place] [address] Zoe Price NP 3 [facility] [address] [place] [address] 02/12/2026 10:40 AM CDT Office Visit [facility] [address] [facility] [address] [place] [address] Mihir Bird DO 3 [facility] [address] [place] [address] documented as of this encounter Visit Diagnoses Not on filedocumented in this encounter Care Teams Manager Wholesale Relationship Specialty Start Date End Date Cyndy Devine, EXT JS DEVELOPER [address] [facility] [address] [place] [address] PCP - General NURSE PRACTITIONER 04/19/24 documented as of this encounter
--- OUTSIDE RECORDS SUMMARY | 2025-08-09 08:11 | XMS_ITS | Encounter Summary ---
Author Organization [facility] Address Counts include 234 beds at the [facility] [place] [address] Care Team Providers Care Mines Safety Engineer Name Role Phone Cyndy Devine TELEVISION CABLE INSTALLER Primary Care Provider [phone] Encounter Details Date Type Department Care Team (Late st Contact Info) Description 08/02/2024 MyChart Message [facility] [place] [address] [place] [address] Cyndy Devine, TELEVISION CABLE INSTALLER [address] [place] [address] Appointment Social History Tobacco Use Types Packs/Day Years Used Date Smoking Tobacco: Never Passive Smoke Exposure: Never Smokeless Tobacco: Never Alcohol Use Standard Drinks/Week Comments Yes 0 (1 standard drink = 0.6 oz pur e alcohol) social Comments No Sex and Gender Information Value Date Recorded Sex Assigned at Female 11/25/2024 9:43 PM CDT Legal Sex Female 4:12 PM SALES AND MARKETING PROFESSIONAL Gender Identity Female 12/19/2024 11:46 AM CDT Sexual Orientation Straight 12/19/2024 11 :46 AM CDT documented as of this encounter Plan of Treatment Upcoming Encounters Date Type Department Care Team (Late st Contact Info) Description 09/21/2025 1:40 PM SALES AND MARKETING PROFESSIONAL Office Visit [facility] - [address], [address] [place] [address] Suzi Prieto MD [address] [place] [address], [place] [address] 10/31/2025 2:20 PM SALES AND MARKETING PROFESSIONAL Office Visit [facility] 3 [facility], [address] [place] [address] Zoe Price NP 3 [facility] [address] [place] [address] 02/12/2026 10:40 AM CDT Office Visit [facility] - [address] [place] [address] Mihir Bird DO 3 [facility] [address] [place] [address] documented as of this encounter Visit Diagnoses Not on filedocumented in this encounter Care Teams Mines Safety Engineer Relationship Specialty Start Date End Date Cyndy Devine, TELEVISION CABLE INSTALLER [address] [facility] [address] [place] [address] PCP - General NURSE PRACTITIONER 04/19/24 documented as of this encounter
--- OUTSIDE RECORDS SUMMARY | 2025-08-09 08:11 | XMS_ITS | Encounter Summary ---
Author Organization [facility] Address [facility] [place] [address] Care Team Providers Care Insole Lip Turner Name Role Phone Cyndy Devine EXTERNAL GRINDER TOOL Primary Care Provider [phone] Encounter Details Date Type Department Care Team (Latest Contact Info) Description 12/27/2024 MyChart Message Enc [facility] Medical [facility] Multispecialty Care - [place] [address] [place] [address] Cyndy Devine, EXTERNAL GRINDER TOOL [address] [place] [address] Medication for headaches Social History Tobacco Use Types Packs/Day Years [...] PM CDT Legal Sex Female 4:12 PM HOST HOSTESS Gender Identity Female 12/19/2024 11:46 AM CDT Sexual Orientation Straight 12/19/2024 11 :46 AM CDT documented as of this encounter Plan of Treatment Upcoming Encounters Date Type Department Care Team (Late st Contact Info) Description 09/21/2025 1:40 PM HOST HOSTESS Office Visit [facility] Medical [facility] Multispecialty Care - [address], [address] [place] [address] Suzi Prieto MD 3 [place] [address] 10/31/2025 2:20 PM HOST HOSTESS Office Visit [facility] [address], [address] [place] [address] Zoe Price NP 3 [facility] [address] [place] [address] 02/12/2026 10:40 AM CDT Office [facility] 3 [facility] [address] [place] [address] Mihir Bird DO 3 [facility] [address] [place] [address] documented as of this encounter Visit Diagnoses Not on filedocumented in this encounter Care Teams Insole Lip Turner Relationship Specialty Start Date End Date Cyndy Devine, EXTERNAL GRINDER TOOL [address] [facility] [address] [place] [address] PCP - General NURSE PRACTITIONER 04/19/24 documented as of this encounter
--- OUTSIDE RECORDS SUMMARY | 2025-08-09 08:11 | XMS_ITS | Patient Health Record ---
Author Organization [facility] [employer] [place] ([address]) Address [address] [place] [address] Care Team Providers Care Social Media Developer Name Role Phone Mihir Vale Primary Care Provider Unavail able Lian Lance Unavailable [phone] Allergies No Known Allergies Reason For Referral No Information Medications Medication SIG (Take, Route, Frequency, Duration) Notes Start Date End Date Status ZYRTEC 10 mg 1 tab(s) orally once a day Active EMGALITY PREFILLED PEN GNLM 120 MG/ML DIRECTED SUBCUTANEOUSLY ONCE A MONTH *Please review for potential replacement for e-prescription and drug interaction check* Active Albuterol Sulfate HFA 108 (90 Base) MCG/ACT 2 puff(s) inhaled every 6 hours Active TRELEGY ELLIPTA 100/62.5/25 mcg 1 inhalation PO Qday; Duration: 30 day(s) Active TOPIRAMATE 25 mg 1 tab(s) orally 2 times a day; Duration: 30 day(s) Active Azelastine HCl 137 MCG/SPRAY 2 spray(s) intranasally 2 times a day; Duration: 30 day(s) 03/03/2023 Active MONTELUKAST 10 mg 1 tab(s) orally once a day; Duration: 30 day(s) Active Levocetirizine Dihydrochloride 5 MG 1 tab(s) orally once a day (in the evening); Duration: 30 day(s) 03/03/2023 Active HYDROCHLOROTHIAZIDE-L OSARTAN 12.5 mg-50 mg 1 tab(s) orally once a day; Duration: 30 day(s) Active LEVOCETIRIZINE 5 mg 1 tab(s) orally once a day (in the evening); Duration: 30 day(s) Active ALBUTEROL 90 mcg/inh 2 puff(s) inhaled every 6 hours Active EPINEPHRINE AUTO-INJECTOR 0.3 MG DIRECTED INTRAMUSCULARLY ONCE; Duration: 1 DAY *Please review for potential replacement for e-prescription and drug interaction check* 03/03/2023 Active Breo Ellipta 200-25 MCG/ACT 1 puff Inhalation Once a day Active Trelegy Ellipta 200-62.5-25 MCG/ACT 1 puff Inhalation Once a day; Duration: 30 days Active Trelegy Ellipta 100/62.5/25 MCG 1 INHALATION PO QDAY; Duration: 30 DAY(S) *Please review and pick correct strength-formulat ion from HOSTEX options. If intended option is not shown, discontinue and re-order from Quick Search* Active AZELASTINE NASAL 137 mcg/inh 2 spray(s) intranasally 2 times a day; Duration: 30 day(s) Active Montelukast Sodium 10 MG 1 tab(s) orally once a day; Duration: 30 day(s) Active ZyrTEC Allergy 10 MG 1 tab(s) orally onc e a day Active Losartan Potassium-HCTZ 50-12.5 MG 1 tab(s) orally once a day; Duration: 30 day(s) Active Social History Tobacco Use: Social History Observation Description Date Details (start date - stop date) Former Smoker NA - NA Smoking Smart Form: Question Answer Notes Are you a: never smoker Tobacco Control (Standard) Question Answer Notes Tobacco use: Former smoker How long has it been since you last smoked? Grea ter than 10 years Problems Problem Type SNOMED Code ICD Code Onset Dates Problem Status W/U Status Risk Notes Problem Hypertension (34852631) Hypertension (401.9) Active confirmed Problem Asthma (311677589) ASTHMA NOS (493.90) Active confirmed Problem Chronic allergic conjunctivitis (90736550) Other chronic allergic conjunctivitis (H10.45) Active confirmed Problem Allergic rhinitis caused by pollen (disorder) (54358074) Allergic rhinitis due to pollen (J30.1) Active confirmed Problem Allergic rhinitis (98267813) Other allergic rhinitis (J30.89) Active confirmed Problem Uncomplicated moderate persistent asthma (235172445) Moderate persistent asthma, uncomplicated (J45.40) Active confirmed Problem Allergic rhinitis caused by animal hair and dander (854687940127966) Allergic rhinitis due to animal (cat) (dog) hair and dander (J30.81) Active confirmed Plan Of Treatment No Information Insurance Providers Payer Name Payer Address Payer Phone Subscriber Number Group Number Insured Name Patient Relationship to Insured Coverage Start Date Coverage End Date [facility] [address] [place] [address] [id number] Li Marquez Self - patient is the insured 1 Medical (General) History Medical History History ICD Code Hypertension 401.9 ASTHMA NOS 493.90 Surgical History Surgery Date(Month/Year) sinus surgery
--- OUTSIDE RECORDS SUMMARY | 2025-08-09 08:11 | XMS_ITS | Encounter Summary ---
Author Organization [facility] Address [facility] [place] [address] Care Team Providers Care Service Unit Operator Name Role Phone Cyndy Devine WIND TUNNEL MECHANIC Primary Care Provider [phone] Encounter Details Date Type Department Care Team (Latest Contact Info) Description 05/17/2025 MyChart Message Enc [facility] Medical [facility] Multispecialty Care - [place] [address] [place], [place] [address] Cyndy Devine, WIND TUNNEL MECHANIC [address] [place] [address] Jeramy Daigle Social History Tobacco Use Types Packs/Day Years [...] PM CDT Legal Sex Female 4:12 PM PAY STATION DEPARTMENT MANAGER Gender Identity Female 12/19/2024 11:46 AM CDT Sexual Orientation Straight 12/19/2024 11 :46 AM CDT documented as of this encounter Plan of Treatment Upcoming Encounters Date Type Department Care Team (Late st Contact Info) Description 09/21/2025 1:40 PM PAY STATION DEPARTMENT MANAGER Office Visit [facility] - [address] [place] [address] Suzi Prieto MD [address] [facility] [place] [address] 10/31/2025 2:20 PM PAY STATION DEPARTMENT MANAGER [facility] [address] [facility] [place] [address] Zoe Price NP [address] [facility] [address] [place] [address] 02/12/2026 10:40 AM CDT Office Visit [facility] [address] [facility] [address] [place] [address] Mihir Bird DO [address] [facility] [address] [place] [address] documented as of this encounter Visit Diagnoses Not on filedocumented in this encounter Care Teams Service Unit Operator Relationship Specialty Start Date End Date Cyndy Devine, WIND TUNNEL MECHANIC [address] [place] [address] PCP - General NURSE PRACTITIONER 04/19/24 documented as of this encounter
--- OUTSIDE RECORDS SUMMARY | 2025-08-09 08:11 | XMS_ITS | Encounter Summary ---
Author Organization [facility] Address [facility] [place] [address] Care Team Providers Care Assembler Tester Name Role Phone Cyndy Devine WELT TRIMMING MACHINE OPERATOR Primary Care Provider [phone] Encounter Details Date Type Department Care Team (Latest Contact Info) Description 01/19/2025 MyChart Message Enc [facility] Medical [facility] Multispecialty Care - [place] [address] [place] [address] Cyndy Devine, WELT TRIMMING MACHINE OPERATOR [address] [place] [address] Name of Neurologist Social History Tobacco Use Types Packs/Day Years [...] PM CDT Legal Sex Female 4:12 PM LITIGATION PARALEGAL Gender Identity Female 12/19/2024 11:46 AM CDT Sexual Orientation Straight 12/19/2024 11 :46 AM CDT documented as of this encounter Plan of Treatment Upcoming Encounters Date Type Department Care Team (Late st Contact Info) Description 09/21/2025 1:40 PM LITIGATION PARALEGAL Office Visit [facility] Medical [facility] Multispecialty Care - [address], [address] [place] [address] Suzi Prieto MD [address] [place] [address] 10/31/2025 2:20 PM LITIGATION PARALEGAL Office Visit [facility] [address] [place] [address] Zoe Price NP [address] [facility] [address] [place] [address] 02/12/2026 10:40 AM CDT Office Visit [facility] [address] [facility] [place] [address] Mihir Bird DO [address] [facility] [place] [address] documented as of this encounter Visit Diagnoses Not on filedocumented in this encounter Care Teams Assembler Tester Relationship Specialty Start Date End Date Cyndy Devine, WELT TRIMMING MACHINE OPERATOR [address] [facility] [address] [place] [address] PCP - General NURSE PRACTITIONER 04/19/24 documented as of this encounter
--- OUTSIDE RECORDS SUMMARY | 2025-08-09 08:11 | XMS_ITS | Encounter Summary ---
Author Organization [facility] Address [facility] [place] [address] Care Team Providers Care Furniture Packer Name Role Phone Cyndy Devine MACHINE CASTINGS PLASTERER Primary Care Provider [phone] Encounter Details Date Type Department Care Team (Late st Contact Info) Description 12/06/2024 [facility] - [place] [address] [place] [address] Cyndy Devine, MACHINE CASTINGS PLASTERER [address] [place] [address] Swollen Feet Social History Tobacco Use Types Packs/Day Years Used Date Smoking Tobacco: Never Passive Smoke Exposure: Never Smokeless Tobacco: Never Alcohol Use Standard Drinks/Week Comments Yes 0 (1 standard drink = 0.6 oz pur e alcohol) social Comments No Sex and Gender Information Value Date Recorded Sex Assigned at Female 11/25/2024 9:43 PM CDT Legal Sex Female 4:12 PM PERIANESTHESIA MANAGER Gender Identity Female 12/19/2024 11:46 AM CDT Sexual Orientation Straight 12/19/2024 11 :46 AM CDT documented as of this encounter Plan of Treatment Upcoming Encounters Date Type Department Care Team (Late st Contact Info) Description 09/21/2025 1:40 PM PERIANESTHESIA MANAGER Office Visit [facility] Multispecialty [facility] Emergency Department - [address], [address] [place] [id number] Suzi Prieto MD [address] [place] [address] [address] 10/31/2025 2:20 PM PERIANESTHESIA MANAGER [facility] - [facility] [address] [facility], [address] [place] [address] Zoe Price, SHADY [address] [facility] [address] [place] [address] 02/12/2026 10:40 AM CDT Office Visit [facility] - [address] [place] [address] Mihir Bird DO [address] [facility] [address] [place] [address] documented as of this encounter Visit Diagnoses Not on filedocumented in this encounter Care Teams Furniture Packer Relationship Specialty Start Date End Date Cyndy Devine, MACHINE CASTINGS PLASTERER [address] [facility] [address] [place] [address] PCP - General NURSE PRACTITIONER 04/19/24 documented as of this encounter
--- NOTE | 2025-08-09 08:45 | ECG_ITS ---
Test Date: 2025-08-09 08:58:11 Measurements Intervals Hobbs Rate: 76 P: 26 ME: 164 QRS: -1 QRSD: 80 T: 12 QT: 375 QTc: 422 Interpretive Statements SINUS RHYTHM BORDERLINE R WAVE PROGRESSION, ANTERIOR LEADS BORDERLINE T WAVE ABNORMALITY- INFERIOR LEADS BASELINE ARTIFACT- I, II, III, AVR, AVL, AVF, V3-V6 BORDERLINE ECG No previous ECG available for comparison Electronically Signed On 08-09-2025 09:45:50 DOCUMENT MANAGEMENT SPECIALIST by Anuj Gomez D.O.
[2025-08-09 09:06] LABS: Hematocrit 34.9 % (37.0-47.0); Hemoglobin 10.7 g/dL (12.0-15.0); Immature Granulocyte Percent A 0.4 % (0-0.5); Lymphocytes Absolute Auto 1.72 K/mm3 (0.9-3.2); Mean Corpuscular HGB Conc 30.7 g/dl (32-36); Mean Corpuscular Hemoglobin 23.3 pg (26-34); Mean Corpuscular Volume 76.0 fl (80-100); Nucleated Red Blood Cells Absolute Auto 0.000 K/mm3 (0.0-0.012); Nucleated Red Blood Cells Perc 0.0 % (0.0-0.2); Platelet Count Result 266 k/mm3 (150-375); Red Blood Count 4.59 M/mm3 (4.2-5.4); White Blood Count 4.8 K/mm3 (4.5-10.0)
[2025-08-09 09:17] LABS: INR 0.9; Prothrombin Time 12.7 Seconds (11.1-14.7)
[2025-08-09 09:18] LABS: Partial Thromboplastin Time 27.4 Seconds (22.3-36.8)
[2025-08-09 09:24] LABS: Alanine Aminotransferase 24 U/L (6-35); Albumin Level 4.0 g/dL (3.5-5.1); Alkaline Phosphatase 106 U/L (38-126); Anion Gap 5 mmol/L (4-12); Aspartate Amino Transferase 27 U/L (14-36); Bilirubin,Total 0.4 mg/dL (0.2-1.3); Blood Urea Nitrogen 20 mg/dL (7-17); Calcium 9.1 mg/dL (8.4-10.2); Carbon Dioxide 25 mmol/L (22-30); Chloride 110 mmol/L (98-107); Estimated Glomerular Filt Rate > 60; Glucose 103 mg/dL (65-110); Potassium 3.9 mmol/L (3.4-5.0); Sodium 140 mmol/L (137-145); Total Protein 7.1 g/dL (6.3-8.2)
== END 2025-08-09 08:01 | disposition home or self-care (01) ==
LOC: ANHSURGERY 08:05
PROVIDERS: PCP Nurse Practitioner; Visit Provider Urology
DX: Z01.818 Encounter for other preprocedural examination (principal); N81.2 Incomplete uterovaginal prolapse; I10 Essential (primary) hypertension
CPT/HCPCS: 36415; 80053; 85025; 85610; 85730; 86850; 86900; 86901; 93005

== ENCOUNTER 2025-08-20 00:13 | Day surgery (SDC) | payer BC, SELFPAY ==
--- OUTSIDE RECORDS SUMMARY | 2024-02-19 15:30 | XMS_ITS ---
Author Organization [employer] [facility] [employer] [place] ([address]) Address [address] [place] [address] Care Team Providers Care Distillery Miller Name Role Phone Mihir Vale Primary Care Provider Unavail able Lian Lance Unavailable [phone] ZZ-Migration, Provider Unavailable Unavailab le [facility]IT [facility] Encounter Medications Medication SIG (Take, [...] Active Encounters Encounter Location Date Provider Diagnosis [address] [address] 02/19/2024 [place] Allergic rhinitis due to [...] * Li MARQUEZDOB:1970 ( 55 yo F)Acc No.[id number]:02/19/2024 Patient: Jori CAMJEOLi Provider: Colleen Taylor :1970 A ge:53 Y S ex:Female Date:02/19/2024 Address:[address] [place], [place] [phone] Pcp:Mihir Vale Subjective: * Chief Complaints: * [...] * Electronic signature of Mary NICOLE-Migration on 08/20/2025 at 12:16 AM DIVING COACH Sign off status: Pending * Provider: Colleen bhatti Migration Date: 0 02/19/2024 Generated for Wendy moreno/Esau/Joseitting on: 1 10/21/2024 12:16 AM DIVING COACH
--- OUTSIDE RECORDS SUMMARY | 2024-02-22 11:30 | XMS_ITS ---
Author Organization [facility] [place] ([address]) Address [address] [place] [address] Care Team Providers Care Process Chemist Name Role Phone Miihr Vale Primary Care Provider Unavail able Lian Lance Unavailable [phone] REASON FOR VISIT DIE TECHNICIAN Allergies Encounters Encounter Location Date Provider Diagnosis [facility] [address] [place] [address] 02/22/2024 Lian Lance Plan Of Treatment No Information Progress Notes * Li MARQUEZDOB:1970 ( 55 yo F)Acc No.[id number]:02/22/2024 Progress Notes Patient: Li BLACKWELL Provider: Christopher Lance MD :1970 A ge:53 Y S ex:Female Date:02/22/2024 Address:[address] [place], [place] [phone] Pcp:Mihir Vale Subjective: * Chief Complaints: * 1 . DIE TECHNICIAN Allergies. * Medical History: Objective: * Vitals: Assessment: Plan: * Treatment: * Billing Information: * Visit Code: * Procedure Codes: * Electronic signature of Jennie Lance MD on 08/20/2025 at 12:16 AM HCC CODERS Sign off status: Pending * Provider: Christopher Lance MD Date: 0 02/22/2024 Generated for Wendy moreno/sEau/eTransmitting on: 1 10/21/2024 12:16 AM HCC CODERS
--- OUTSIDE RECORDS SUMMARY | 2024-04-05 11:30 | XMS_ITS ---
Author Organization [facility] ([address]) Address [address] [place] [address] Care Team Providers Care Kidney Puller Name Role Phone Mihir Vale Primary Care Provider Unavail able Lian Lance Unavailable [phone] REASON FOR VISIT Asthma follow-up - recent [...] review and pick correct strength-formulat ion from Preedo options. If intended option is not shown, discontinue and re-order from Quick Search* Active Encounters Encounter Location Date Provider Diagnosis [facility] [address] [address] 04/05/2024 Lian Natalio Allergic rhinitis du e [...] * Li MARQUEZDOB:1970 ( 55 yo F)Acc No.[id number]:04/05/2024 Progress Notes Patient: Li BLACKWELL Provider: Christopher Lance MD :1970 A ge:53 Y S ex:Female Date:04/05/2024 Address:[address] [place], [place] [phone] Pcp:Mihir Vale Subjective: * Chief Complaints: * [...] *Please review and pick correct strength-formulation from Preedo options. If intended option is not shown, [...] TO ALTERNATIVE / PRIMARY CARE PROVIDER: R eferral to general physician * Follow Up: 4 Weeks (Reason: Evaluation and Management) * Billing Information: * Visit Code: * Procedure Codes: * Electronic signature of Jennie Lance MD on 08/20/2025 at 12:16 AM AIR ROUTE CONTROLLER Sign off status: Pending * Provider: Christopher Lance MD Date: 0 04/05/2024 Generated for Wendy moreno/Esau/Joseitting on: 1 10/21/2024 12:16 AM AIR ROUTE CONTROLLER History and Physical Notes * HPI (History [...]
--- OUTSIDE RECORDS SUMMARY | 2024-05-10 11:30 | XMS_ITS ---
Author Organization [employer] ([address]) Address [address] [place] [address] Care Team Providers Care Service Superintendent Name Role Phone Mihir Vale Primary Care Provider Unavail able Lian Lance Unavailable [phone] REASON FOR VISIT Asthma follow-up - recent flares Medications Medication SIG (Take, Route, Frequency, Duration) Notes Start Date End Date Status LEVOCETIRIZINE 5 mg 1 tab(s) orally once a day (in the evening); Duration: 30 day(s) Active AZELASTINE NASAL 137 mcg/inh 2 spray(s) intranasally 2 times a day; Duration: 30 day(s) Active Trelegy Ellipta 200-62.5-25 MCG/ACT 1 puff Inhalation Once a day; Duration: 30 days Active EPINEPHRINE AUTO-INJECTOR 0.3 MG DIRECTED INTRAMUSCULARLY ONCE; Duration: 1 DAY *Please review for potential replacement for e-prescription and drug interaction check* 03/03/2023 Active Azelastine HCl 137 MCG/SPRAY 2 spray(s) intranasally 2 times a day; Duration: 30 day(s) 03/03/2023 Active Montelukast Sodium 10 MG 1 tab(s) orally once a day; Duration: 30 day(s) Active Albuterol Sulfate HFA 108 (90 Base) MCG/ACT 2 puff(s) inhaled every 6 hours Active EMGALITY PREFILLED PEN GNLM 120 MG/ML DIRECTED SUBCUTANEOUSLY ONCE A MONTH *Please review for potential replacement for e-prescription and drug interaction check* Active Losartan Potassium-HCTZ 50-12.5 MG 1 tab(s) orally once a day; Duration: 30 day(s) Active Levocetirizine Dihydrochloride 5 MG 1 tab(s) orally once a day (in the evening); Duration: 30 day(s) 03/03/2023 Active ZyrTEC Allergy 10 MG 1 tab(s) orally onc e a day Active Trelegy Ellipta 100/62.5/25 MCG 1 INHALATION PO QDAY; Duration: 30 DAY(S) *Please review and pick correct strength-formulat ion from [employer] options. If intended option is not shown, discontinue and re-order from Quick Search* Active Breo Ellipta 200-25 MCG/ACT 1 puff Inhalation Once a day Active Encounters Encounter Location Date Provider Diagnosis [facility] [address] [address] 05/10/2024 Lian Natalio Allergic rhinitis du e to pollen J30.1 ; Moderate persistent asthma, uncomplicated J45.40 ; Allergic rhinitis due to animal (cat) (dog) hair and dander J30.81 ; Other allergic rhinitis J30.89 ; Other chronic allergic conjunctivitis H10.45 and Shortness of breath R06.02 Assessments Encounter Date Diagnosis (ICD Code) Assessment Notes Treatment Notes Treatment Clinical Notes Section Notes 05/10/2024 Allergic rhinitis due to pollen (ICD-10 - [...] 1 month for interval evaluation and management 05/10/2024 Moderate persistent asthma, uncomplicated (ICD-10 - J45.40) Persistent asthma and ACT 9 today. Spirometry today is normal. We discusse switching from Breo to Trelegy. Coupon given. We discussed starting immunotherapy to help with asthma control. 05/10/2024 Allergic rhinitis due to animal (cat) (dog) hair and dander (ICD-10 - J30.81) Follow allergen avoidance, meds and consider SCIT as an adjunctive treatment to current regimen 05/10/2024 Other allergic rhinitis (ICD-10 - J30.89) Follow allergen avoidance, meds and consider SCIT as an adjunctive treatment to current regimen 05/10/2024 Other chronic allergic conjunctivitis (ICD-10 - H10.45) Given ocular signs and symptoms I encouraged allergy avoidance measures and meds as above. If symptoms persist, consider adding additional medications including intraocular antihistamine/mas t cell stabilizer, PRN and consider SCIT as an adjunctive measure 05/10/2024 Shortness of breath (ICD-10 - R06.02) Plan Of Treatment Medication Medication Name Sig Start Date Stop Date Notes LEVOCETIRIZINE 5 mg 1 tab(s) orally once a day (in the evening); Duration: 30 day(s) AZELASTINE NASAL 137 mcg/inh 2 spray(s) intranasally 2 times a day; Duration: 30 day(s) Trelegy Ellipta 200-62.5-25 MCG/ACT 1 puff Inhalation Once a day; Duration: 30 days Treatment Notes Assessment Notes Allergic rhinitis due [...] * Li MARQUEZDOB:1970 ( 55 yo F)Acc No.[id number]:05/10/2024 Progress Notes Patient: Li BLACKWELL Provider: Christopher Lance MD :1970 A ge:53 Y S ex:Female Date:05/10/2024 Address:[address] [place], [place] [phone] Pcp:Mihir Vale Subjective: * Chief Complaints: * [...] *Please review and pick correct strength-formulation from [employer] options. If intended option is not shown, discontinue and re-order from Quick Search*, Taking Breo Ellipta 200-25 MCG/ACT Aerosol Powder [...] for e-prescription and drug interaction check*, Taking LEVOCETIRIZINE 5 mg tablet 1 tab(s) orally once a day (in the evening) , Taking AZELASTINE NASAL 137 mcg/inh spray 2 spray(s) intranasally 2 times a day , Taking Trelegy Ellipta 200-62.5-25 MCG/ACT Aerosol Powder [...] Lance MD on 08/20/2025 at 12:16 AM INSPECTOR SHELLS Sign off status: Pending * Provider: Christopher Lance MD Date: 0 05/10/2024 Generated for Wendy moreno/Esau/Joseitting on: 1 10/21/2024 12:16 AM INSPECTOR SHELLS History and Physical Notes * HPI (History [...]
--- OUTSIDE RECORDS SUMMARY | 2024-05-31 11:30 | XMS_ITS ---
Author Organization [employer] [facility] [employer] [place] ([address]) Address [address] [place] [address] Care Team Providers Care Can Operator Name Role Phone Mihir Vale Primary Care Provider Unavail able Lian Lance Unavailable [phone] REASON FOR VISIT Asthma follow-up - recent flares Medications Medication SIG (Take, Route, Frequency, Duration) Notes Start Date End Date Status Azelastine HCl 137 MCG/SPRAY 2 spray(s) intranasally 2 times a day; Duration: 30 day(s) 03/03/2023 Active EPINEPHRINE AUTO-INJECTOR 0.3 MG DIRECTED INTRAMUSCULARLY ONCE; Duration: 1 DAY *Please review for potential replacement for e-prescription and drug interaction check* 03/03/2023 Active LEVOCETIRIZINE 5 mg 1 tab(s) orally once a day (in the evening); Duration: 30 day(s) Active AZELASTINE NASAL 137 mcg/inh 2 spray(s) intranasally 2 times a day; Duration: 30 day(s) Active Trelegy Ellipta 200-62.5-25 MCG/ACT 1 puff Inhalation Once a day; Duration: 30 days Active Levocetirizine Dihydrochloride 5 MG 1 tab(s) orally once a day (in the evening); Duration: 30 day(s) 03/03/2023 Active EMGALITY PREFILLED PEN GNLM 120 MG/ML DIRECTED SUBCUTANEOUSLY ONCE A MONTH *Please review for potential replacement for e-prescription and drug interaction check* Active Losartan Potassium-HCTZ 50-12.5 MG 1 tab(s) orally once a day; Duration: 30 day(s) Active Montelukast Sodium 10 MG 1 tab(s) orally once a day; Duration: 30 day(s) Active Albuterol Sulfate HFA 108 (90 Base) MCG/ACT 2 puff(s) inhaled every 6 hours Active Breo Ellipta 200-25 MCG/ACT 1 puff Inhalation Once a day Active ZyrTEC Allergy 10 MG 1 tab(s) orally onc e a day Active Trelegy Ellipta 100/62.5/25 MCG 1 INHALATION PO QDAY; Duration: 30 DAY(S) *Please review and pick correct strength-formulat ion from [employer] options. If intended option is not shown, discontinue and re-order from Quick Search* Active Encounters Encounter Location Date Provider Diagnosis [facility] [address] [address] 05/31/2024 Lian Natalio Allergic rhinitis du e to pollen J30.1 ; Moderate persistent asthma, uncomplicated J45.40 ; Allergic rhinitis due to animal (cat) (dog) hair and dander J30.81 ; Other allergic rhinitis J30.89 ; Other chronic allergic conjunctivitis H10.45 and Shortness of breath R06.02 Assessments Encounter Date Diagnosis (ICD Code) Assessment Notes Treatment Notes Treatment Clinical Notes Section Notes 05/31/2024 Allergic rhinitis due to pollen (ICD-10 - [...] 1 month for interval evaluation and management 05/31/2024 Moderate persistent asthma, uncomplicated (ICD-10 - J45.40) Persistent asthma and ACT 9 today. Spirometry today is normal. We discusse switching from Breo to Trelegy. Coupon given. We discussed starting immunotherapy to help with asthma control. 05/31/2024 Allergic rhinitis due to animal (cat) (dog) hair and dander (ICD-10 - J30.81) Follow allergen avoidance, meds and consider SCIT as an adjunctive treatment to current regimen 05/31/2024 Other allergic rhinitis (ICD-10 - J30.89) Follow allergen avoidance, meds and consider SCIT as an adjunctive treatment to current regimen 05/31/2024 Other chronic allergic conjunctivitis (ICD-10 - H10.45) Given ocular signs and symptoms I encouraged allergy avoidance measures and meds as above. If symptoms persist, consider adding additional medications including intraocular antihistamine/mas t cell stabilizer, PRN and consider SCIT as an adjunctive measure 05/31/2024 Shortness of breath (ICD-10 - R06.02) Plan [...] * Li MARQUEZDOB:1970 ( 55 yo F)Acc No.[id number]:05/31/2024 Progress Notes Patient: Li BLACKWELL Provider: Christopher Lance MD :1970 A ge:53 Y S ex:Female Date:05/31/2024 Address:[address] [place], [place] [id number] Pcp:Mihir Vale Subjective: * Chief Complaints: * [...] *Please review and pick correct strength-formulation from [employer] options. If intended option is not shown, [...] of Jennie Lance MD on 08/20/2025 at 12:17 AM COMMUNITY EDUCATION COORDINATOR Sign off status: Pending * Provider: Christopher Lance MD Date: 0 05/31/2024 Generated for Wendy moreno/Esau/Joseitting on: 1 10/21/2024 12:17 AM COMMUNITY EDUCATION COORDINATOR History and Physical Notes * HPI (History [...]
--- OUTSIDE RECORDS SUMMARY | 2024-06-07 10:00 | XMS_ITS ---
Author Organization [facility] [employer] [facility] [employer] [place] ([address]) Address [address] [place] [address] Care Team Providers Care District Fire Chief Name Role Phone Mihir Vale Primary Care Provider Unavail able Lian Lance Unavailable [phone] Medications Medication SIG (Take, Route, Frequency, Duration) Notes Start Date End Date Status Azelastine HCl 137 MCG/SPRAY 2 spray(s) intranasally 2 times a day; Duration: 30 day(s) 03/03/2023 Active LEVOCETIRIZINE 5 mg 1 tab(s) orally once a day (in the evening); Duration: 30 day(s) Active EPINEPHRINE AUTO-INJECTOR 0.3 MG DIRECTED INTRAMUSCULARLY ONCE; Duration: 1 DAY *Please review for potential replacement for e-prescription and drug interaction check* 03/03/2023 Active Trelegy Ellipta 200-62.5-25 MCG/ACT 1 puff Inhalation Once a day; Duration: 30 days Active AZELASTINE NASAL 137 mcg/inh 2 spray(s) intranasally 2 times a day; Duration: 30 day(s) Active EMGALITY PREFILLED PEN GNLM 120 MG/ML DIRECTED SUBCUTANEOUSLY ONCE A MONTH *Please review for potential replacement for e-prescription and drug interaction check* Active Albuterol Sulfate HFA 108 (90 Base) MCG/ACT 2 puff(s) inhaled every 6 hours Active Losartan Potassium-HCTZ 50-12.5 MG 1 tab(s) orally once a day; Duration: 30 day(s) Active Levocetirizine Dihydrochloride 5 MG 1 tab(s) orally once a day (in the evening); Duration: 30 day(s) 03/03/2023 Active Montelukast Sodium 10 MG 1 tab(s) orally once a day; Duration: 30 day(s) Active HYDROCHLOROTHIAZIDE-L OSARTAN 12.5 mg-50 mg 1 tab(s) orally once a day; Duration: 30 day(s) Active ALBUTEROL 90 mcg/inh 2 puff(s) inhaled every 6 hours Active Breo Ellipta 200-25 MCG/ACT 1 puff Inhalation Once a day Active Trelegy Ellipta 100/62.5/25 MCG 1 INHALATION PO QDAY; Duration: 30 DAY(S) *Please review and pick correct strength-formulat ion from [employer] options. If intended option is not shown, discontinue and re-order from Quick Search* Active ZyrTEC Allergy 10 MG 1 tab(s) orally onc e a day Active ZYRTEC 10 mg 1 tab(s) orally once a day Active TRELEGY ELLIPTA 100/62.5/25 mcg 1 inhalation PO Qday; Duration: 30 day(s) Active TOPIRAMATE 25 mg 1 tab(s) orally 2 times a day; Duration: 30 day(s) Active MONTELUKAST 10 mg 1 tab(s) orally once a day; Duration: 30 day(s) Active Encounters Encounter Location Date Provider Diagnosis [facility] [address] [place] [address] 06/07/2024 Lian Lance Plan Of Treatment No Information Progress Notes * Li MARQUEZDOB:1970 ( 55 yo F)Acc No.[id number]:06/07/2024 Progress Notes Patient: Sam BLACKWELLia Provider: Christopher Lance MD :1970 A ge:53 Y S ex:Female Date:06/07/2024 Address:[address] [place], [place] [phone] Pcp:Mihir Vale Subjective: * Chief Complaints: * * Medical History: * Medications: T aking ZYRTEC 10 mg tablet 1 tab(s) orally once a day , Taking TRELEGY ELLIPTA 100/62.5/25 mcg DPI 1 inhalation PO Qday , Taking MONTELUKAST 10 mg tablet 1 tab(s) orally once a day , Taking TOPIRAMATE 25 mg tablet 1 tab(s) orally 2 times a day , Taking ALBUTEROL 90 mcg/inh aerosol 2 puff(s) inhaled every 6 hours , Taking HYDROCHLOROTHIAZIDE-LOSARTAN 12.5 mg-50 mg tablet 1 tab(s) orally once a day , Taking Trelegy Ellipta 100/62.5/25 MCG DPI 1 INHALATION PO QDAY , Notes to Pharmacist: *Please review and pick correct strength-formulation from [employer] options. If intended option is not shown, [...] Inhalation Once a day Objective: * Vitals: Assessment: Plan: * Treatment: * Billing Information: * Visit Code: * Procedure Codes: * Electronic signature of Jennie Lance MD on 08/20/2025 at 12:17 AM INSURANCE VERIFICATION SPECIALIST Sign off status: Pending * Provider: Christopher Lance MD Date: 1 Generated for Wendy moreno/Esau/Ruben on: 1 10/21/2024 12:17 AM INSURANCE VERIFICATION SPECIALIST
--- NOTE | 2025-08-09 08:03 | PC.NURSE ---
[facility] has started construction of its new state of the art ER which will open Spring 2026. With this, we anticipate parking may be a challenge for some our surgical patients and families. Parking spaces are limited but are available for all Surgical, obstetrics, and ER patients sharing this lot. If you arrive and find you are having a hard time finding a parking space, please note that we understand the challenges, please drive around the hospital and park near Hospital Entrance 1. When you enter this entrance, you can ask a volunteer to direct or take you back to the surgical waiting area to check in. We appreciate everyone?s understanding of these expected challenges while we build for your future. Report to the Outpatient Waiting Room, entrance under the green pavilion located off [address], at time __6 am on date __08/20/25 . Planned Procedure Time: __7:30 am .? Time changes happen often and if your time is changed the preop area will call you the afternoon before. - You and your visitor will be asked to self-screen and do not enter if you have any COVID symptoms. Please call surgeon if you need to reschedule. - A mask is optional within the hospital at this time. Patients may have clear liquids (water, carbonated beverages, clear teas, apple juice) until 3 hours prior to surgery ( 4:30 am) with a maximum of 20 ounces. - No food from midnight until time of surgery and no smoking, or chewing tobacco (or any form of nicotine). No chewing gum, candy or mints. - Take only the following medications with a SIP of water on the morning of surgery: ____AMLODIPINE_,TRELEGY INHALER DO NOT STOP ANY OF YOUR OTHER PRESCRIPTION MEDICATIONS PRIOR TO SURGERY EXCEPT THE FOLLOWING Hold all vitamins and supplements for 3 days per anesthesiologist.LAST DOSE 08/16/25 Medications to discontinue per physician NONE Please no make-up, nail german, hairspray, perfume, deodorant, or body powder the day of surgery.? No jewelry (including any body piercings) or valuables the day of surgery, leave them at home.? Please take a shower or bath the night before, or the morning of, surgery with an antibacterial soap.? Wear comfortable, loose fitting clothing.? Children are encouraged to wear pajamas. - Jewelry must be removed prior to entering the operating room.? Rings and piercings that are not removed may be cut off. - The hospital will not accept responsibility for valuables.? - Please leave all valuables, including medications, at home the day of surgery. If you are going home after surgery, a licensed local owner operator truck driver must drive you home.? - NO public transportation without another adult if you receive anesthesia. - We recommend that an adult stay with you for 24 hours following discharge. - We also recommend that you do not drive, make important decision, drink alcoholic beverages, or take any drugs that were not prescribed by your health care provider for at least 24 hours after your discharge time. For Pediatric surgeries, we recommend two adults accompany the child home. Follow any additional instructions given to you from your surgeon. VERBAL AND WRITTEN instructions given to __PATIENT and asked if any additional questions and then verbalized understanding. Patient advised to call surgeon office or pre surgery nurse liaison [phone] if any additional questions.
[2025-08-09 08:09] VITALS: BMI 34.2
[2025-08-09 08:46] VITALS: BP 128/88; PULSE 77; RESP 18; TEMP 36.6; O2SAT 100
--- NOTE | 2025-08-17 10:40 | PM.IMHP2 ---
H&P: HPI History of Present Illness Date/Time: 08/17/25 10:40 Chief Complaint: POP Narrative: Li Marquez is a 54-year-old female who presents for evaluation of pelvic organ prolapse. She has symptomatic pelvic organ prolapse that has been ongoing for greater than one year and increasing in severity. She has obstructive voiding symptoms, including hesitancy. She does have symptomatic stress urinary incontinence but This is rare. ?Stress incontinence is seen on urodynamics.. Dyspareunia is noted, and she is sexually active. She has not had a previous hysterectomy. Her president commercial bank is Dr. Bulmaro Lacey. ?She has had 3 children. ?All of them by Caesarean section she is interested in surgical approach for her prolapse. ?She declines a pessary or physical therapy Review of Systems Review of Systems: All systems reviewed & are unremarkable except as noted in HPI and below PMFSH Past Medical History Medical History Abnormal mammogram Migraines Environmental and seasonal allergies Mild intermittent asthma in adult without complication Surgical History Surgical History S/P breast augmentation History of endometrial ablation 2003 H/O section x 3 History of sinus surgery History of tubal ligation Family History Family History Father Hypertension Diabetes mellitus Mother Hypertension Family history of diabetes mellitus in first degree relative Family history of malignant neoplasm of ovary Diabetes mellitus Social History Social History Smoking status: Never smoker Second hand tobacco smoke exposure: No Alcohol intake: current Alcohol use details: 2 DRINKS PER MONTH Substance use: never Substance use type: does not use Lack of Transportation: No Lack of Food: Never True Current Housing: I Have Housing Concerned About Future Housing: No Difficulty Paying Gas/Electric Bills: No Difficulty Paying for Meds: No Currently Unemployed: No Education: Trade/Vocational Certificate Difficulty w/ Childcare or Family Care: No Living arrangements: with family Occupation/Education: occupation Gender identity (if verbalized by the patient): Female Spiritual care concerns: No Meds Home Medications and Allergies Home Medications ?Medication ?Instructions ?Recorded ?Confirmed ?Type montelukast 10 mg tablet 10 mg PO DAILY #90 tabs 11/08/20 08/09/25 Rx (Singulair) galcanezumab-gnlm 120 mg/mL 120 mg subcut MONTHLY 02/21/21 08/09/25 History subcutaneous pen injector (Emgality Pen) lactobacillus combination no.4 3 3,000 mmu cells PO DAILY 03/25/21 08/09/25 History billion cell capsule (Probiotic) lisinopril 20 mg tablet 20 mg PO DAILY 04/09/22 08/09/25 History docosahexaenoic acid (dha)-epa 120 1 cap PO DAILY 09/22/23 08/09/25 History mg-180 mg capsule (Fish Oil) multivitamin 1 tablet PO DAILY 09/22/23 08/09/25 History albuterol 90 mcg/actuation aerosol 1 mcg inhalation DAILY 04/11/24 08/09/25 History inhaler amlodipine 5 mg tablet 5 mg PO DAILY 07/10/25 08/09/25 History albuterol 90 mcg-budesonide 80 2 inh inhalation PRN 08/09/25 08/09/25 History mcg/actuation HFA aerosol inhaler (Airsupra) cetirizine 10 mg tablet 10 mg PO HS 08/09/25 08/09/25 History fluticasone fur. 200 mcg-umeclid 1 inh inhalation DAILY 08/09/25 08/09/25 History 62.5 mcg-vilant 25 mcg inhalat.powder (Trelegy Ellipta) losartan 100 mg tablet 100 mg PO DAILY 08/09/25 08/09/25 History magnesium 200 mg tablet 200 mg PO DAILY 08/09/25 08/09/25 History omeprazole 20 mg capsule,delayed 20 mg PO DAILY 08/09/25 08/09/25 History release scopolamine base 1 mg over 3 days 1 patch transdermal ONCE #1 ea 08/09/25 08/09/25 Rx transdermal patch topiramate 25 mg tablet 25 mg PO DAILY HEADACHE 08/09/25 08/09/25 History Allergies Allergy/AdvReac Type Severity Reaction Status Date / Time erythromycin base Allergy Unknown Unknown Verified 08/09/25 10:30 Exam Narrative: - Normal urethra hypermobility. - Cystocele just beyond the introitus. - Rectocele to the introitus. - Loss of apical support with the uterus and cervix at minus one. Assessment and Plan Assessment and plan (1) Incomplete uterine prolapse: Code(s): N81.2 - Incomplete uterovaginal prolapse Status: Acute (2) RAJEEV (stress urinary incontinence, female): Code(s): N39.3 - Stress incontinence (female) (male) Status: Acute Plan Note:?ASSESSMENT: - Pelvic organ prolapse, symptomatic, greater than one year, increasing in severity. - ?stress urinary incontinence noted on urodynamics. - Obstructive voiding symptoms, including hesitancy. PLAN: - We discussed the treatment options for pelvic organ prolapse, including observation, pelvic floor muscle exercises, physical therapy, pessary usage, and surgery, as well as each approach's specific risks and benefits. She opts for a sacral colpopexy. We specifically discussed the utilization of robotic sacral colpopexy. ? - She understands the risks of bleeding, infection, recurrence or prolapse, mesh exposure, damage to the bowel or urinary tract, open conversion, de paul urinary urgency, urinary retention, post-operative stress urinary incontinence, dyspareunia, back pain, diskitis, and risks of anesthesia. In addition, she was provided written information on the etiology and treatment of pelvic organ prolapse. ? - After an extensive discussion, she agrees to proceed with surgery. - We discussed the treatment options for stress urinary incontinence, including pelvic floor muscle rehabilitation, transurethral bulking agents, and mid-urethral sling procedures. She is most interested in the latter. ? - We discussed the alternatives, benefits, and risks. We discussed specifically the risks of bleeding, infection, failure to correct incontinence, damage to the urinary tract, vaginal mesh extrusion, urinary tract mesh erosion, obstructive voiding requiring a secondary procedure, de paul or worsening irritative voiding symptoms, post-operative hip and leg pain, and the risk of anesthesia. We also discussed that treatment of stress incontinence is unlikely to improve overactive bladder symptoms if present. She was also counseled on post-operative activity restrictions. She wishes to proceed.
[2025-08-20] VITALS (10 sets, daily range): BP systolic 114–135; BP diastolic 66–86; PULSE 75–105; RESP 10–20; TEMP 36.3–37; O2SAT 95–100
--- OUTSIDE RECORDS SUMMARY | 2025-08-20 00:16 | XMS_ITS | Encounter Summary ---
Author Organization [facility] Address [address] [place] [address] Care Team Providers Care Infantry Officer Name Role Phone SybilCyndy vital Ct CARPENTER MATE Primary Care Provider [phone] Encounter Details Date Type Department Care Team (Late Contact Info) Description 06/14/2025 [facility] Message Enc [facility] General Surgery [address], [facility] [address] [place] [address] [facility] Provider Schedule Consultation Appointment Social History [...] PM CDT Legal Sex Female 4:12 PM NECK SKEWER Gender Identity Female 12/19/2024 11:46 AM CDT Sexual Orientation Straight 12/19/2024 11 :46 AM CDT documented as of this encounter Plan of Treatment Upcoming Encounters Date Type Department Care Team (Late st Contact Info) Description 09/21/2025 1:40 PM NECK SKEWER Office Visit [facility] Multispecialty Care - [address], [address] [place] [address] Suzi Prieto MD [address] [place] [address] 10/31/2025 2:20 PM NECK SKEWER [facility] [address] [facility], [address] [place] [address] Zoe Price, SHADY [address] [facility] [address] [place] [address] 02/12/2026 10:40 AM CDT Office Visit [facility] [address] [facility] [place] [address] Mihir Bird DO [address] [facility] [address] [place] [address] documented as of this encounter Visit Diagnoses Not on filedocumented in this encounter Care Teams Infantry Officer Relationship Specialty Start Date End Date Cyndy Devine, CARPENTER MATE [address] [facility] [address] [place] [address] PCP - General NURSE PRACTITIONER 04/19/24 documented as of this encounter
--- OUTSIDE RECORDS SUMMARY | 2025-08-20 00:16 | XMS_ITS | Encounter Summary ---
Author Organization [facility] Address [address] [place] [address] Care Team Providers Care Office Administrator Name Role Phone SybilCyndy vital Ct SITE COORDINATOR Primary Care Provider [phone] Encounter Details Date Type Department Care Team (Late Contact Info) Description 05/31/2025 [facility] Message Enc [facility] General Surgery [address], [facility] [address] [place] [address] [facility] Schedule Consultation Appointment Social History [...] PM CDT Legal Sex Female 4:12 PM ON SITE PROPERTY MANAGER Gender Identity Female 12/19/2024 11:46 AM CDT Sexual Orientation Straight 12/19/2024 11 :46 AM CDT documented as of this encounter Plan of Treatment Upcoming Encounters Date Type Department Care Team (Late st Contact Info) Description 09/21/2025 1:40 PM ON SITE PROPERTY MANAGER Office Visit [facility] Multispecialty Care - [address], [address] [place] [address] Suzi Prieto MD [address] [place] [address] 10/31/2025 2:20 PM ON SITE PROPERTY MANAGER [facility] [address] [facility], [address] [place] [address] Zoe Price, SHADY [address] [facility] [address] [place] [address] 02/12/2026 10:40 AM CDT Office Visit [facility] [address] [facility] [place] [address] Mihir Bird DO [address] [facility] [address] [place] [address] documented as of this encounter Visit Diagnoses Not on filedocumented in this encounter Care Teams Office Administrator Relationship Specialty Start Date End Date Cyndy Devine, SITE COORDINATOR [address] [facility] [address] [place] [address] PCP - General NURSE PRACTITIONER 04/19/24 documented as of this encounter
--- OUTSIDE RECORDS SUMMARY | 2025-08-20 00:16 | XMS_ITS | Clinical Summary ---
Author Organization [facility] Off[facility] Address [address] [place] [address] Care Team Providers Care Stone Mill Operator Name Role Phone Stephen Gerber MD Primary Care Provider [phone] Family History Medical History Relation Name Comments Breast Cancer Neg Hx Ovarian Cancer Neg Hx Social History Tobacco Use Types Packs/Day Years Used Date Smoking Tobacco: Never Assessed Comments Unknown Sex and Gender Information Value Date Recorded Sex Assigned at Not on file Legal Sex Female 10:03 AM ICE CARVER Gender Identity Not on file Sexual Orientation [...] OR WO CAD Routine 07/22/2015 3:24 PM ICE CARVER Visit for screening mammogram from Last 3 Months or Most Recently Relevant to Health Maintenance Results * MAMMO DIGITAL SCREEN BILAT (07/22/2015 3:24 PM ICE CARVER) Anatomical Region Laterality Modality Breast Bilateral Mammography 07/22/2015 2:06 PM ICE CARVER Addenda Addendum by Jay Hart MD on 08/02/2015 11:16 AM ICE CARVER ADDENDUM: Outside films are made available for review dated 01/19/2012 from [facility]. FINDINGS: There is a partially circumscribed mass [...] at the 6:00 position. LOCATION: Dictated from [facility] Narrative 07/25/2015 9:07 AM ICE CARVER BILATERAL DIGITAL SCREENING MAMMOGRAM WITH CAD DATE: [...] when these films become available. Dictated from [facility] Procedure Note Jay Hart MD - 07/25/2015 [...] when these films become available. Dictated from [facility] Bulmaro Lacey MD MAMMO ORDERABLES Edited Result - Final from Last 3 Months or Most Recently Relevant to Health Maintenance Insurance [employer] Care Teams Stone Mill Operator Relationship Specialty Start Date End Date Stephen Gerber MD [address] [facility] [place] [address] PCP - General Family Practice 07/18/15
--- OUTSIDE RECORDS SUMMARY | 2025-08-20 00:16 | XMS_ITS | Data Portability ---
Author Organization [place] - [facility], Main Office Address [address] [address] Care Team Providers Care Stonecutter Name Role Phone MARCELA COON Primary Care Provider Assessment No assessment recorded. Plan of Treatment Reminders Order Date Submit Date Provider Last Modified By Organization Details Last Modified Time Details Appointments None record ed. Lab None record ed. Referral None record ed. Procedures None record ed. Surgeries None record ed. Imaging None record ed. Medication Orders None record ed. Patient TargetsNo targets recorded. Patient Instructions Encounter Date Encounter Id Patient Instructions Last Modified By Organization Details Last Modified Time 06/20/2019 [id number] hemorrhoids: car e instructions Not available 06/30/2019 18:25:40 She will follow up with me if she wants to start treatment or if she has further questions/concern s. On today's visit I spent a total of 40 minutes [id number] with the patient and over 50% of this time was spent discussing treatment options, risks/benefits of each option and alternatives and answering her questions. Not available 06/30/2019 18:24:40 03/05/2021 [id number] hemorrhoids: car e instructions Not available 03/05/2021 21:15:55 Patient counsele d to F/U immediately if temp. greater than 100.4, if is unable to urinate, increased rectal pain or any other concerns. Not available 03/05/2021 21:13:37 She will follow up in 1 - 2 weeks and I will probably treat her LL internal hemorrhoid and look at her RA. I discussed with her she will be a total of 5 - 6 treatments. On today's visit I spent a total of 35 minutes prepping for her visit, [id number] with her and documenting. Not available 03/05/2021 21:15:04 03/14/2021 [id number] hemorrhoids: car e instructions Not available 03/15/2021 20:53:11 Patient counsele d to F/U immediately if temp. greater than 100.4, if is unable to urinate, increased rectal pain or any other concerns. Not available 03/13/2021 22:32:29 She will follow up in 2 - 3 weeks and I will treat her RA internal hemorrhoid. I discussed with her she will be a total of 5 treatments. Not available 03/15/2021 20:52:16 04/18/2021 [id number] Patient counsele d to F/U immediately if temp. greater than 100.4, if is unable to urinate, increased rectal pain or any other concerns. Not available 04/17/2021 21:24:36 She will follow up in about 8 weeks and I will try to retreat all three of her internal hemorrhoids. We will probably do another treatment 6 - 8 weeks after that. Not available 04/18/2021 18:07:48 Reason for Referral None Reported. Problems Name Problem SNOMED Code Status Onset Date Resolution Date Notes Provider Name and Address Organization Details Recorded Time Pile easily reducible 170006499 Active 2018: No Tx - no want Tx #1: 1 1.2 x 10 RP Tx #2: 03/14/21 1.2 x 10 LL Tx #3: 04/14/21 1.1 x 6 RA and 1.1 x 5 RP Tx #4: Mireille Kelly MD [address] [place] [address],[address], [address] [place] [address] [facility] 18:07:52 External hemorrhoids 39061926 Active 2018 Mireille Kelly MD [address] [place] [address],[address] [place], [address], [facility] [place] 9 18:22:55 Migraine 88534968 Active 2018 Mireille Kelly MD [address] [place] [address],[address], [place], [address], [facility] [place] 9 18:22:58 Asthma 168083827 Active 2018 Mireille Kelly MD [address] [place] [address],[address], [place], [address], [facility] [place] 9 18:23:27 Problem Notes None recorded. Procedures Surgical History Date Name Laterality Status Provider Name and Address Organization Details Recorded Time IRC completed Mireille Kelly MD [address] [place] [address],[address], [place], [address], [facility] 04/18/2021 18:00:19 1 IRC completed Mireille Kelly MD [address] [place] [address],[address], [place], [address], [facility] [place] 03/15/2021 20:46:26 1 IRC completed Mireille Kelly MD [address] [place] [address],[address], [place], [address], [facility] 03/05/2021 21:10:14 1 Feces-based colorectal cancer DNA screening completed Mireille Kelly MD [address] [place] [address],[address], [place], [address], [facility] 03/05/2021 21:07:56 9 Anoscopy completed Mireille Kelly MD [address] [place] [address],[address], [place], [address], [facility] [place] 06/30/2019 18:14:22 9 Date of Last Pap Smear completed Agnes Dominguez [facility] [place] 06/20/2019 14:37:22 9 Date of Last Mammogram completed Agnes Dominguez [facility] [place] 06/20/2019 14:37:18 4 Caesarean Section completed Mireille Kelly MD [address] [facility],[address], [place], [address], [facility] [place] 06/30/2019 18:11:53 Imaging Results None recorded. Procedure Notes None recorded. Medical Equipment None Reported. Allergies No known drug allergies Medications Name Sig Start Date Stop Date Status Note LastModified by Organization Details LastModified Time latanopro st 0.005 % eye drops INSTILL 1 DROP INTO EACH EYE AT BEDTIME DIRECTED 03/05 completed Not Available Not Available Not Available metronida zole 500 mg tablet TAKE 1 TABLET BY MOUTH EVERY 12 HOURS active Not Available Not Available No t Available rizatript an 10 mg disintegr ating tablet 06/20 completed Not Available Not Available Not Available monteluka st 10 mg tablet TAKE 1 TABLET BY MOUTH DAILY active Not Available Not Available No t Available methylpre dnisolone 4 mg tablets in a dose pack FPD 03/05 completed Not Available Not Available Not Available albuterol sulfate HFA 90 mcg/actua tion aerosol inhaler INHALE 2 PUFFS EVERY 4-6 HOURS NEEDED FOR SHORTNES S OF BREATH active Not Available Not Available No t Available amoxicill in 875 mg-potass ium clavulana te 125 mg tablet TAKE 1 TABLET BY MOUTH TWICE DAILY 03/05 completed Not Available Not Available Not Available topiramat e 50 mg tablet active Not Available Not Available Not Available Excedrin Migraine active 03/05/21: She takes about 1 - 2 doses twice monthly (she takes 3 at 1 time). She denies taking any other aspirin products or NSAIDS Not Available Not Available Not Available Emgality Pen 120 mg/mL subcutane ous pen injector active Not Available Not Available Not Available Ubrelvy 50 mg tablet TAKE 1 TABLET BY MOUTH MAY REPEAT DOSE ONCE AFTER 2 HOURS IF NEEDED active Not Available Not Available No t Available Vitals Date Recorded Body temperature Provider Name a nd Address Organization Details Last Updated DateTime 03/05/2021 97.1 [degF] Naastasia Soria [facility] 03/05/2021 12:18:29 Date Recorded Body temperature Provider Name a nd Address Organization Details Last Updated DateTime 03/14/2021 97.2 [degF] Anastasia Soria [facility] 03/14/2021 14:38:36 Date Recorded Body temperature Provider Name a nd Address Organization Details Last Updated DateTime 04/18/2021 97.9 [degF] Anastasia Soria [facility] 04/18/2021 14:31:32 Date Recorded Body weight Body mass index (BMI) Body height Body temperature Respiratory rate Heart rate Systolic And Diastolic Provider Name and Address Organization Details Last Updated DateTime 9 78759.1 4 g 30.3 kg/m2 149.86 cm 98.1 [degF] 12 /min 86 /min 130/86 mm[Hg] Agnes Dominguez [facility] 9 14:53:31 Social History Question Answer Notes LastModified by Organizat ion Details LastModified Time Tobacco Smoking Status Never Smoker [facility] 06/20/2019 14:36:32 Alcohol Use Yes [email or web address] Information not available 06/20/2019 Alcohol Amount Occasional [email or web address] Informat ion not available 06/20/2019 Caffeine Use Yes [email or web address] Informatio n not available 06/20/2019 Caffeine Type Coffee [email or web address] Informati on not available 06/20/2019 Caffeine Amount 1c/day [email or web address] Information not available 06/20/2019 Illicit Drug Use No [email or web address] Information not available 06/20/2019 What Was The Date Of Your Most Recent Tobacco Screening? 03/05/2021 Information not available 03/05/2021 How Much Tobacco Do You Smoke? No [email or web address] Information not available 06/20/2019 How Many Years Have You Smoked Tobacco? 0 [email or web address] Information not available 06/20/2019 Sex: Female Functional Status Question Answer Note LastModified by Organizat ion Details LastModified Time Do you or have you ever used smokeless tobacco? Never used smokeless tobacco [email or web address] Information not available 06/20/2019 What is your occupation? [employer]or [email or web address] Information not available 06/20/2019 Do you or have you ever used e-cigarettes or vape? Never used electronic cigarettes [email or web address] Information not available 06/20/2019 Mental Status None recorded. Family History Relationship Description Onset Age of this Age Resolved Age Notes LastModified by Organization Details LastModified Time Father Diabetes mellitus [email or web address] Not available 14:36:21 Mother Diabetes mellitus [email or web address] Not available 14:36:21 Medical History Condition Response Coronary Artery Disease N Other N Atrial Fibrillation N Kidney Stones N Hyperthyroidism N Hernia N COPD N Depression N Glaucoma Y Hypothyroidism N Accidental Bowel Leakage N Headaches/Migraines Y Deep Vein Thrombosis N Cardiac Dysrhythmia N Anxiety Disorder N MRSA/VRE Exposure N Genital Herpes N Diverticulosis N Cancer N Stroke N Head Trauma N Crohn's Disease N Genital Warts N Liver Disease/Hepatitis N HIV/AIDS N High Cholesterol N Irritable Bowel Syndrome N Autoimmune Disease N Kidney Disease N Anemia N Celiac Disease N Arthritis/Gout N Anal/Rectal Trauma/Injury N Diabetes N Cataracts N Bleeding Disorder N Seizures/Epilepsy N Congestive Heart Failure (CHF) N Diverticulitis N Heart Attack N Asthma Y Reflux/GERD N Ulcerative Colitis N Sleep Apnea Y Mitral Valve Prolapse N Aneurysm N Heart Disease N Pulmonary Embolism N Hypertension N Colon/Rectal Polyps N Gynecological History Statement/Question Response Number of Pregnancies? 3 Tear or Laceration During Delivery? N Date of Last Mammogram 02/04/2019 Could You Be or Are You Currently Pregna nt? N Number of C-Sections? 3 Number of Vaginal Deliveries? 0 Accidental Bowel Leakage Post Delivery? N Episiotomy During Delivery? N Date of Last Pap Smear 05/07/2019 Obstetrics History GPAL:G 0 P 0 0 0 0 Immunizations Vaccine Type Date Status Note Provider Nam e and Address Organization Details Recorded Time Influenza, split virus, quadrivalent, preservative 8 completed Agnes Dominguez [place], [place] - [facility] 06/20/2019 14:36:05 Past Encounters Encounter ID Performer Location Encounter Start Date Encounter Closed Date Diagnosis/Indication Diagnosis SNOMED-CT Code Diagnosis ICD10 Code Diagnosis IMO Codes Diagnosis Note [id number] Mireille Kelly MD Main Office [address] [address] 06/20/2019 14:26:51 06/20/2019 16:06:02 Pile easily reducible 172286898 K64.1 Stage 2 - 3 internal hemorrhoid s: I discussed hemorrhoid s in general with her as well as the treatment options. She now understand s that any non-surgic al treatment (infrared coagulatio n or banding) would be done on her internal hemorrhoid s. I did give her full informed consent including risks/bene fits and alternativ es for IRC treatment and I do think she is a good candidate. I discussed with her she would be a total of 4 - 5 treatments . All of her questions were answered. She would like to think about her options before proceeding with treatment. I advised that if we do eventually treat she will need to limit the amount of Excedrin that she takes to minimize the (already very low) risk of having bleeding from the treatment. External hemorrhoids 239 66797 K64.4 See above. She now understand s that the only way to directly treat external hemorrhoid s and skin tags would be with a surgical excision. This would be extremely painful and there is the potential for significan t complicati ons. Her external hemorrhoid s/skin tags are circumfere ntial making surgery harder. She declined a referral to a colon and rectal surgeon (she adamantly does not want to have surgery). She does consistent ly use the moist wipes and I encouraged her to continue doing so. She of course needs to consistent ly eat a high fiber diet and drink plenty of water. I advised she should consider starting a very low dose of psyllium (start with 1 capsule daily) and slowly increase. This might bulk her BM's somewhat (while keeping them soft) making it easier to wipe. Migraine 66891985 G43.90 9 She is on the topiramate . Asthma [id number] J45.90 9 [id number] Mireille Kelly MD Main Office [address] [facility] [address] [place] [address] 03/05/2021 12:05:17 03/05/2021 13:14:22 Pile easily reducible 630207516 K64.1 Stage 2 - 3 internal hemorrhoid s: I reviewed hemorrhoid s in general with her as well as the treatment options. She understand s that any non-surgic al treatment (infrared coagulatio n or banding) would be done on her internal hemorrhoid s. I went through full informed consent including risks/bene fits and alternativ es for IRC treatment and I do think she is a good candidate. All of her questions were answered. She would like to proceed. Her first treatment was done today on her RP internal hemorrhoid . I advised she needs to limit the amount of Excedrin that she takes to minimize the (already very low) risk of having bleeding from the treatment. External hemorrhoids 239 34105 K64.4 These will improve with IRC. She understand s the only way to directly treat external hemorrhoid s/skin tags would be with a surgical excision. She does not wish to pursue this and her hemorrhoid s are not bad enough to warrant surgery. She is fully aware that she will have tagging even after any internal treatment. She does consistent ly use the moist wipes and I encouraged her to continue doing so. She can also try a product called Qleanse. She of course needs to consistent ly eat a high fiber diet and drink plenty of water. I advised she should restart a very low dose of psyllium (start with 1 capsule daily) and slowly increase. She admits this bulked her BM's somewhat (while keeping them soft) making it easier to wipe. [id number] Mireille Kelly MD Main Office [address] [facility] [address] [place] [address] 03/14/2021 14:38:15 03/14/2021 15:24:01 Pile easily reducible 304121244 K64.1 Stage 2 - 3 internal hemorrhoid s: She is doing well with infrared coagulatio n. Her 2nd treatment was done today on her LL internal hemorrhoid . She knows she needs to limit the amount of Excedrin that she takes to minimize the (already very low) risk of having bleeding from the treatment. External hemorrhoids 239 11669 K64.4 These are improving with IRC. She understand s the only way to directly treat external hemorrhoid s/skin tags would be with a surgical excision. She does not wish to pursue this and her hemorrhoid s are not bad enough to warrant surgery. She is fully aware that she will have tagging even after any internal treatment. I advised she needs to consistent ly use the moist wipes or Qleanse (I gave her a brochure). She of course needs to consistent ly eat a high fiber diet and drink plenty of water. I advised she should continue the very low dose psyllium and she can switch to the capsules (and should be aware that there is only 0.5 grams of fiber in each capsule). She knows she needs to maintain daily and soft (Hardin Scale type 4) BM's. She should take the psyllium daiy and forever. [id number] Mireille Kelly MD Main Office [address] [facility] [address] [place] [address] 04/18/2021 14:20:59 04/18/2021 15:07:28 Pile easily reducible 704171736 K64.1 Stage 2 - 3 internal hemorrhoid s: She is doing well with infrared coagulatio n. Her 3rd treatment was done today on her RA and RP internal hemorrhoid s. External hemorrhoids 239 68519 K64.4 These have improved with IRC. I discussed with her again that the only way to directly treat external hemorrhoid s/skin tags would be with a surgical excision. She is fully aware that she will have tagging and swelling even after any internal treatment. She of course needs to consistent ly eat a high fiber diet and drink plenty of water. I advised she should continue working with the very low dose psyllium. She knows she needs to maintain daily and soft (Hardin Scale type 4) BM's. She should take the psyllium daiy and forever. Health Concerns Section Related Observation LastModified by Organization Detai ls LastModified Time None Recorded Concern Status LastModified by Organization Details LastModified Time None Recorded Advance Directives Directive None Recorded Payers Insurance Date Sequence Insurance Name Policy Number Policy [place] Covered Member ID [place] Member ID Guarantor Name 03/22/2022 PAYMENT PLAN iL Marquez 03/20/2022 1 [place] RAM[employer] - [employer] [id number] Li Marquez [id number] Li Marquez Notes Date Note Type Note Provider Name and Address Organization Details Recorded Time 06/20/2019 text/html ROS as noted in the HPI This is a very pleasant 48 year old woman who has had symptoms from her hemorrhoids on and off for 25 years following her first and delivery. Her symptoms have been intermittent over the years but they have been worsening/becoming more persistent over the last few to several years. They have become bothersome enough that she presents today for an evaluation and to discuss her treatment options. Bleeding: She does have episodes of seeing bright red blood on the wipe with BM's and occasionally having some drip of blood in the water. These episodes will last for 3 - 4 days and then completely resolve for days to weeks. She has never had heavy bleeding nor leakage of blood in between BM's. Pain: Not really Itching: She can get a lot of external irritation and itching when she is flared. Discharge: It is always hard to get clean after BM's because of swelling and irritation. She occasionally has some difficulty staying clean - she has to re-wipe shortly after a BM. She has never had drainage heavy enough that she has to wear a pad. Prolapse: Not that she feels or has to manually reduce. External swelling: She always has external swelling and skin tagging. This becomes larger after BM's and if she is more flared. Discomfort: She has external discomfort/irritat ion and occasional pain. She has internal symptoms of pressure, a sense of being blocked when trying to have a BM and a sense of incomplete emptying after BM's. Previous Hemorrhoid Treatment: She has used multiple OTC products but they have not been helpful. She has never had a prescription for or procedure on her hemorrhoids. Previous Lower GI Endoscopy: She has never had a colonoscopy. Bowel Habits: She has had long standing daily and for the most part soft (Hardin Scale type 4) BM's. She tries to consistently eat a high fiber diet and drink plenty of water. She has never taken fiber supplements, stool softeners or laxatives on a consistent basis. Mireille Kelly MD [address] [facility],[address], [place], [address], [facility] 06/30/2019 18:25:43 03/05/2021 text/html ROS as noted in the HPI See visit from 06/24/2019. She states she has had on and off bleeding with BM's since then. Her bleeding worsened about 2 - 3 months ago and has been occuring with almost every BM's. She presents today to start IRC treatment. Bleeding: As above. She always sees BRB heavy on the wipe. About 2 - 3 times weekly she has heavy dripping of BRB in the water. She has never had leakage of blood in between BM's. Pain: She has had some flares of painful external swelling. These flares can last for 2 - 3 days. Itching: She has external irritation and itching. Discharge: It is always hard to get clean after BM's because of swelling and irritation. She does consistently use the moist wipes. She does not have difficulty staying clean - she does not have to re-wipe. Prolapse: She has swelling with BM's but cannot tell if this is just external swelling or true internal prolapse. Discomfort: She has the external irritation/discomf ort/pain. She has internal symptoms of pressure, a sense of being blocked when trying to have a BM and a sense of incomplete emptying after BM's. Previous Hemorrhoid Treatment: She has used multiple OTC products but they have not been helpful. She has never had a prescription for or procedure on her hemorrhoids. Previous Lower GI Endoscopy: She had a negative ColoGuard about 3 months ago. She has never had a colonoscopy. Bowel Habits: She has had long standing daily and for the most part soft (Hardin Scale type 4) BM's depending on her diet. She did take very low dose psyllium after seeing me and states this did seem to help her BM's. She went off of it months ago. Mireille Kelly MD [address] [facility],[address], [place], [address], [facility] 03/05/2021 21:15:59 03/14/2021 text/html 03/14/21: She had no problem with the 1st treatment and she is better. She has had no bleeding with BM's. It is much easier to get and stay clean after BM's. She still has external swelling with BM's but it goes down quicker. She did restart powdered psyllium and is taking 1 tsp daily. Her BM's are soft. She did have difficulty taking it when they went camping. She is still using TP and not wipes (or Qleanse). 03/05/21: See visit from 06/24/2019. She states she has had on and off bleeding with BM's since then. Her bleeding worsened about 2 - 3 months ago and has been occuring with almost every BM's. She presents today to start IRC treatment. Bleeding: As above. She always sees BRB heavy on the wipe. About 2 - 3 times weekly she has heavy dripping of BRB in the water. She has never had leakage of blood in between BM's. Pain: She has had some flares of painful external swelling. These flares can last for 2 - 3 days. Itching: She has external irritation and itching. Discharge: It is always hard to get clean after BM's because of swelling and irritation. She does consistently use the moist wipes. She does not have difficulty staying clean - she does not have to re-wipe. Prolapse: She has swelling with BM's but cannot tell if this is just external swelling or true internal prolapse. Discomfort: She has the external irritation/discomf ort/pain. She has internal symptoms of pressure, a sense of being blocked when trying to have a BM and a sense of incomplete emptying after BM's. Previous Hemorrhoid Treatment: She has used multiple OTC products but they have not been helpful. She has never had a prescription for or procedure on her hemorrhoids. Previous Lower GI Endoscopy: She had a negative ColoGuard about 3 months ago. She has never had a colonoscopy. Bowel Habits: She has had long standing daily and for the most part soft (Hardin Scale type 4) BM's depending on her diet. She did take very low dose psyllium after seeing me and states this did seem to help her BM's. She went off of it months ago. Mireille Kelly MD [address] [facility],[address], [place], [address], [facility] 03/15/2021 20:53:14 04/18/2021 text/html 04/18/21: She had no problem with the last treatment and she is doing well overall. She has had no bleeding (which is a big improvement). She does still have some swelling with BM's. She has no discomfort. It is much easier to pass a BM. She did go to [place] on vacation and did not take her psyllium while she was there. She had loose stools while there and is trying to get back on the fiber consistently. The loose stools did not really bother her hemorrhoids.03/14/21 : She had no problem with the 1st treatment and she is better. She has had no bleeding with BM's. It is much easier to get and stay clean after BM's. She still has external swelling with BM's but it goes down quicker.She did restart powdered psyllium and is taking 1 tsp daily. Her BM's are soft. She did have difficulty taking it when they went camping. She is still using TP and not wipes (or Qleanse).03/05/21: See visit from 06/24/2019. She states she has had on and off bleeding with BM's since then. Her bleeding worsened about 2 - 3 months ago and has been occuring with almost every BM's. She presents today to start IRC treatment.Bleeding : As above. She always sees BRB heavy on the wipe. About 2 - 3 times weekly she has heavy dripping of BRB in the water. She has never had leakage of blood in between BM's.Pain: She has had some flares of painful external swelling. These flares can last for 2 - 3 days.Itching: She has external irritation and itching.Discharge: It is always hard to get clean after BM's because of swelling and irritation. She does consistently use the moist wipes. She does not have difficulty staying clean - she does not have to re-wipe.Prolapse: She has swelling with BM's but cannot tell if this is just external swelling or true internal prolapse.Discomfor t: She has the external irritation/discomf ort/pain. She has internal symptoms of pressure, a sense of being blocked when trying to have a BM and a sense of incomplete emptying after BM's.Previous Hemorrhoid Treatment: She has used multiple OTC products but they have not been helpful. She has never had a prescription for or procedure on her hemorrhoids.Previo us Lower GI Endoscopy: She had a negative ColoGuard about 3 months ago. She has never had a colonoscopy.Bowel Habits: She has had long standing daily and for the most part soft (Hardin Scale type 4) BM's depending on her diet. She did take very low dose psyllium after seeing me and states this did seem to help her BM's. She went off of it months ago. Mireille Kelly MD [address], [place], [address], [facility] 04/18/2021 18:09:14 OBGyn Episode No OBEpisode recorded.
--- OUTSIDE RECORDS SUMMARY | 2025-08-20 00:16 | XMS_ITS | Encounter Summary ---
Author Organization [facility] Address [address] [place] [address] Care Team Providers Care Global Professional Name Role Phone SybilCyndy vital Ct BLINTZE ROLLER Primary Care Provider +1 [phone] Encounter Details Date Type Department Care Team (Late Contact Info) Description 06/07/2025 [address] Places Message Enc [facility] General Surgery [address], [facility] [address] [place] [address] [facility] Schedule Consultation Appointment Social History Tobacco [...] PM CDT Legal Sex Female 4:12 PM CANDY DEPOSITING MACHINE OPERATOR Gender Identity Female 12/19/2024 11:46 AM CDT Sexual Orientation Straight 12/19/2024 11 :46 AM CDT documented as of this encounter Plan of Treatment Upcoming Encounters Date Type Department Care Team (Late st Contact Info) Description 09/21/2025 1:40 PM CANDY DEPOSITING MACHINE OPERATOR Office Visit [facility] Multispecialty Care - [address], [address] [place] [address] Suzi Prieto MD [address] [place] [address] 10/31/2025 2:20 PM CANDY DEPOSITING MACHINE OPERATOR [facility] [address] [facility], [address] [place] [address] Zoe Price, SHADY [address] [facility] [address] [place] [address] 02/12/2026 10:40 AM CDT Office Visit [facility] [address] [facility] [place] [address] Mihir Bird DO [address] [facility] [address] [place] [address] documented as of this encounter Visit Diagnoses Not on filedocumented in this encounter Care Teams Global Professional Relationship Specialty Start Date End Date Cyndy Devine, BLINTZE ROLLER [address] [facility] [address] [place] [address] PCP - General NURSE PRACTITIONER 04/19/24 documented as of this encounter
--- OUTSIDE RECORDS SUMMARY | 2025-08-20 00:17 | XMS_ITS | Encounter Summary ---
Author Organization [facility] Address [facility] [place] [address] Care Team Providers Care Contact Center Manager Name Role Phone Cyndy Devine INSPECTOR PLATING Primary Care Provider [phone]- [phone] Encounter Details Date Type Department Care Team (Late st Contact Info) Description 10/12/2024 MyChart Message [facility] [address] [place] [address] Cyndy Devine, INSPECTOR PLATING [address] [place] [address] Emgality Social History Tobacco Use Types Packs/Day Years Used Date Smoking Tobacco: Never Passive Smoke Exposure: Never Smokeless Tobacco: Never Alcohol Use Standard Drinks/Week Comments Yes 0 (1 standard drink = 0.6 oz pur e alcohol) social Comments No Sex and Gender Information Value Date Recorded Sex Assigned at Female 11/25/2024 9:43 PM CDT Legal Sex Female 4:12 PM INDUSTRIAL COMMERCIAL GROUNDSKEEPER Gender Identity Female 12/19/2024 11:46 AM CDT Sexual Orientation Straight 12/19/2024 11 :46 AM CDT documented as of this encounter Plan of Treatment Upcoming Encounters Date Type Department Care Team (Late st Contact Info) Description 09/21/2025 1:40 PM INDUSTRIAL COMMERCIAL GROUNDSKEEPER Office Visit [facility] - [address], [address] [place] [address] Suzi Prieto MD [address] [place] [address], [place] [address] 10/31/2025 2:20 PM INDUSTRIAL COMMERCIAL GROUNDSKEEPER [facility] [address] [facility], [address] [place] [address] Zoe Price, SHADY [address] [facility] [address] [place] [address] 02/12/2026 10:40 AM CDT Office Visit [facility] - [address] [place] [address] Mihir Bird DO [address] [facility] [address] [place] [address] documented as of this encounter Visit Diagnoses Not on filedocumented in this encounter Care Teams Contact Center Manager Relationship Specialty Start Date End Date Cyndy Devine, INSPECTOR PLATING [address] [facility] [place] [address] PCP - General NURSE PRACTITIONER 04/19/24 documented as of this encounter
--- OUTSIDE RECORDS SUMMARY | 2025-08-20 00:17 | XMS_ITS | Encounter Summary ---
Author Organization [facility] Address [facility] [place] [address] Care Team Providers Care Front Office Help Name Role Phone Cyndy Devine HOISTING ENGINEER PILE DRIVING Primary Care Provider [phone]- [phone] Encounter Details Date Type Department Care Team (Late st Contact Info) Description 12/14/2024 MyChart Message Enc [facility] Multispecialty [facility] [address] [place] [address] Cyndy Devine, HOISTING ENGINEER PILE DRIVING [address] [place] [address] Stomach Pain Social History Tobacco Use Types Packs/Day Years Used Date Smoking Tobacco: Never Passive Smoke Exposure: Never Smokeless Tobacco: Never Alcohol Use Standard Drinks/Week Comments Yes 0 (1 standard drink = 0.6 oz pur e alcohol) social Comments No Sex and Gender Information Value Date Recorded Sex Assigned at Female 11/25/2024 9:43 PM CDT Legal Sex Female 4:12 PM PINKING MACHINE OPERATOR Gender Identity Female 12/19/2024 11:46 AM CDT Sexual Orientation Straight 12/19/2024 11 :46 AM CDT documented as of this encounter Plan of Treatment Upcoming Encounters Date Type Department Care Team (Late st Contact Info) Description 09/21/2025 1:40 PM PINKING MACHINE OPERATOR Office Visit [facility] Multispecialty [facility] - [address], [address] [place] [address] Suzi Prieto MD [address] [place], [place] [address], [place] [address] 10/31/2025 2:20 PM PINKING MACHINE OPERATOR [facility] [address] [facility], [address] [place] [address] Zoe Price, SHADY [address] [facility] [address] [place] [address] 02/12/2026 10:40 AM CDT Office Visit [facility] - [address] [place] [address] Mihir Bird DO [address] [facility] [address] [place] [address] documented as of this encounter Visit Diagnoses Not on filedocumented in this encounter Care Teams Front Office Help Relationship Specialty Start Date End Date Cyndy Devine, HOISTING ENGINEER PILE DRIVING [address] [facility] [address] [place] [address] PCP - General NURSE PRACTITIONER 04/19/24 documented as of this encounter
--- OUTSIDE RECORDS SUMMARY | 2025-08-20 00:17 | XMS_ITS | Clinical Summary ---
Author Organization [employer] [facility] Address [address] [place] [address] Care Team Providers Care Sales And Marketing Coordinator Name Role Phone Cyndy Devine Sarita SHADY Primary Care Provider Allergies No known active allergies Medications Emgality Pen 120 mg/mL pnij Inject 120 mg subcutaneously once a month for migraines 05/18/20 23 Active albuterol (VENTOLIN HFA) 90 mcg/actuation inhaler Inhale two puffs as needed for asthma 05/18/20 23 Active losartan-hydroc hlorothiazide (HYZAAR) 50-12.5 mg tablet Take one a day for high blood pressure 05/13/20 23 Active montelukast (SINGULAIR) 10 mg tablet Take one a day for asthma 03/17/20 21 Active topiramate (TOPAMAX) 25 MG tablet Take 1 tablet (25 mg total) by mouth daily Indications: headaches Active Lactobacillus acidophilus (PROBIOTIC ORAL) URO vaginal; Take one a day Indications: dr hinojosa Active calcium carbonate (TUMS ORAL) Take one or two as needed for heart burn Active esomeprazole magnesium (NexIUM 24HR) 20 mg TbEC Take one a day as needed Indications: heartburn Active acetaminophen (TYLENOL) 500 MG tablet Take 2 tablets (1,000 mg total) by mouth as needed for pain Indications: cold Active Social History Tobacco Use Types Packs/Day Years Used Date Smoking Tobacco: Never Assessed Comments Unknown Sex and Gender Information Value Date Recorded Sex Assigned at Not on file Legal Sex Female 7:14 PM EDT Gender Identity Not on file Sexual Orientation Not on file Last Filed Vital Signs Vital Sign Reading Time Taken Comments Blood Pressure - - Pulse - - Temperature - - Respiratory Rate - - Oxygen Saturation - - Inhaled Oxygen Concentration - - Weight 70.8 kg (156 lb) 06/18/2023 4:20 PM MST Height 149.9 cm (4' 11) 06/18/2023 4:20 PM MST Body Mass Index 31.51 06/18/2023 4:20 PM MST Plan of Treatment Not on file Medical Devices Not on file Care Teams Sales And Marketing Coordinator Relationship Specialty Start Date End Date Cyndy Devine NP PCP - General 06/18/23
--- OUTSIDE RECORDS SUMMARY | 2025-08-20 00:17 | XMS_ITS | Encounter Summary ---
Author Organization [facility] Address [facility] [place] [address] Care Team Providers Care Childcare Center Administrator Name Role Phone Cyndy Devine COMPUTER NETWORKING INSTRUCTOR Primary Care Provider [phone] Encounter Details Date Type Department Care Team (Latest Contact Info) Description 05/17/2025 MyChart Message Enc [facility] Medical [facility] Multispecialty Care - [place] [address] [place], [place] [id number] Cyndy Devine, COMPUTER NETWORKING INSTRUCTOR [address] [place] [address] Jeramy Daigle Social History Tobacco Use Types [...] PM CDT Legal Sex Female 4:12 PM S IRON WORKER Gender Identity Female 12/19/2024 11:46 AM CDT Sexual Orientation Straight 12/19/2024 11 :46 AM CDT documented as of this encounter Plan of Treatment Upcoming Encounters Date Type Department Care Team (Late st Contact Info) Description 09/21/2025 1:40 PM S IRON WORKER Office Visit [facility] Mult[facility]pecialty [facility] - [address], [address] [place] [address] Suzi Prieto MD [address] [facility] [place] [address] 10/31/2025 2:20 PM S IRON WORKER [facility] [address] [place] [address] Zoe Price NP [address] [facility] [facility] [address] [place] [address] 02/12/2026 10:40 AM CDT Office Visit [facility] [address] [facility] [place] [address] Mihir Bird DO [address] [facility] [address] [facility] [address] [place] [address] documented as of this encounter Visit Diagnoses Not on filedocumented in this encounter Care Teams Childcare Center Administrator Relationship Specialty Start Date End Date Cyndy Devine, COMPUTER NETWORKING INSTRUCTOR [address] [place] [address] PCP - General NURSE PRACTITIONER 04/19/24 documented as of this encounter
--- OUTSIDE RECORDS SUMMARY | 2025-08-20 00:17 | XMS_ITS | Encounter Summary ---
Author Organization [facility] Address [facility] [place] [address] Care Team Providers Care Ecommerce Analyst Name Role Phone Cyndy Devine ROLL EDGE STITCHER HAND Primary Care Provider [phone] Encounter Details Date Type Department Care Team (Late st Contact Info) Description 08/14/2024 MyChart Message Enc [facility] [place] [address] [place] [address] Cyndy Devine, ROLL EDGE STITCHER HAND [address] [place] [address] Emgality Social History Tobacco Use Types Packs/Day Years Used Date Smoking Tobacco: Never Passive Smoke Exposure: Never Smokeless Tobacco: Never Alcohol Use Standard Drinks/Week Comments Yes 0 (1 standard drink = 0.6 oz pur e alcohol) social Comments No Sex and Gender Information Value Date Recorded Sex Assigned at Female 11/25/2024 9:43 PM CDT Legal Sex Female 4:12 PM CARTON FOLDER Gender Identity Female 12/19/2024 11:46 AM CDT Sexual Orientation Straight 12/19/2024 11 :46 AM CDT documented as of this encounter Plan of Treatment Upcoming Encounters Date Type Department Care Team (Late st Contact Info) Description 09/21/2025 1:40 PM CARTON FOLDER Office Visit [facility] Multispecialty [facility] - [address], [address] [place] [address] Suzi Prieto MD [address] [place] [address] 10/31/2025 2:20 PM CARTON FOLDER [facility] [address] [facility], [address] [place] [address] Zoe Price NP [address] [facility] [address] [place] [address] 02/12/2026 10:40 AM CDT Office Visit [facility] - [address] [place] [address] Mihir Bird DO [address] [facility] [address] [place] [address] documented as of this encounter Visit Diagnoses Diagnosis Migraine with aura and without status migrainosus, not intractable- Primary Migraine with aura, without mention of intractable migraine without mention of status migrainosus documented in this encounter Care Teams Ecommerce Analyst Relationship Specialty Start Date End Date Cyndy Devine ROLL EDGE STITCHER HAND [address] [place] [address] PCP - General NURSE PRACTITIONER 04/19/24 documented as of this encounter
--- OUTSIDE RECORDS SUMMARY | 2025-08-20 00:17 | XMS_ITS | Encounter Summary ---
Author Organization [facility] Address [facility] [place] [address] Care Team Providers Care Follow Up Rep Name Role Phone Cyndy Devine ARCHITECTURAL WOOD MODEL MAKER Primary Care Provider [phone] Encounter Details Date Type Department Care Team (Latest Contact Info) Description 01/19/2025 MyChart Message Enc [facility] Medical [facility] Multispecialty Care - [place] [address] [place] [address] Cyndy Devine, ARCHITECTURAL WOOD MODEL MAKER [address] [place] [address] Name of Neurologist Social History Tobacco Use [...] PM CDT Legal Sex Female 4:12 PM CLUB ATTENDANT Gender Identity Female 12/19/2024 11:46 AM CDT Sexual Orientation Straight 12/19/2024 11 :46 AM CDT documented as of this encounter Plan of Treatment Upcoming Encounters Date Type Department Care Team (Late st Contact Info) Description 09/21/2025 1:40 PM CLUB ATTENDANT Office Visit [facility] Medical [facility] Multispecialty Care - [address], [address] [place] [address] Suzi Prieto MD [address] [place] [address] 10/31/2025 2:20 PM CLUB ATTENDANT Office Visit [facility] [address] [place] [address] Zoe Price NP [address] [facility] [address] [place] [address] 02/12/2026 10:40 AM CDT Office Visit [facility] [address] [facility] [place] [address] Mihir Bird DO [address] [facility] [place] [address] documented as of this encounter Visit Diagnoses Not on filedocumented in this encounter Care Teams Follow Up Rep Relationship Specialty Start Date End Date Cyndy Devine, ARCHITECTURAL WOOD MODEL MAKER [address] [facility] [address] [place] [address] PCP - General NURSE PRACTITIONER 04/19/24 documented as of this encounter
--- OUTSIDE RECORDS SUMMARY | 2025-08-20 00:17 | XMS_ITS | Encounter Summary ---
Author Organization [facility] Address [facility] [place] [address] Care Team Providers Care Solid Waste Collection Worker Name Role Phone Cyndy Devine PLAN NURSE Primary Care Provider [phone]- [phone] Encounter Details Date Type Department Care Team (Late st Contact Info) Description 12/06/2024 MyChart Message Enc [facility] Multispecialty [facility] [address] [place] [address] Cyndy Devine, PLAN NURSE [address] [place] [address] Swollen Feet Social History Tobacco Use Types Packs/Day Years Used Date Smoking Tobacco: Never Passive Smoke Exposure: Never Smokeless Tobacco: Never Alcohol Use Standard Drinks/Week Comments Yes 0 (1 standard drink = 0.6 oz pur e alcohol) social Comments No Sex and Gender Information Value Date Recorded Sex Assigned at Female 11/25/2024 9:43 PM CDT Legal Sex Female 4:12 PM ELECTRICAL SUBCONTRACTOR Gender Identity Female 12/19/2024 11:46 AM CDT Sexual Orientation Straight 12/19/2024 11 :46 AM CDT documented as of this encounter Plan of Treatment Upcoming Encounters Date Type Department Care Team (Late st Contact Info) Description 09/21/2025 1:40 PM ELECTRICAL SUBCONTRACTOR Office Visit [facility] Mult[facility]pecialty [facility] - [address], [address] [place] [address] Suzi Prieto MD [address] [place], [place] [address], [place] [address] 10/31/2025 2:20 PM ELECTRICAL SUBCONTRACTOR [facility] [address] [facility], [address] [place] [address] Zoe Price, SHADY [address] [facility] [address] [place] [address] 02/12/2026 10:40 AM CDT Office Visit [facility] - [address] [place] [address] Mihir Bird DO [address] [facility] [address] [place] [address] documented as of this encounter Visit Diagnoses Not on filedocumented in this encounter Care Teams Solid Waste Collection Worker Relationship Specialty Start Date End Date Cyndy Devine, PLAN NURSE [address] [facility] [address] [place] [address] PCP - General NURSE PRACTITIONER 04/19/24 documented as of this encounter
--- OUTSIDE RECORDS SUMMARY | 2025-08-20 00:17 | XMS_ITS | Encounter Summary ---
Author Organization [facility] Address [facility] [place] [address] Care Team Providers Care General Partner Name Role Phone Cyndy Devine GUM DIPPER Primary Care Provider [phone] Encounter Details Date Type Department Care Team (Latest Contact Info) Description 12/27/2024 MyChart Message Enc [facility] Medical [facility] Multispecialty Care - [place] [address] [place] [address] Cyndy Devine, GUM DIPPER [address] [place] [address] Medication for headaches Social History Tobacco Use [...] PM CDT Legal Sex Female 4:12 PM ELECTRONICS TECH Gender Identity Female 12/19/2024 11:46 AM CDT Sexual Orientation Straight 12/19/2024 11 :46 AM CDT documented as of this encounter Plan of Treatment Upcoming Encounters Date Type Department Care Team (Late st Contact Info) Description 09/21/2025 1:40 PM ELECTRONICS TECH Office Visit [facility] Medical [facility] Multispecialty Care - [address] [place] [address] Suzi Prieto MD 3 [facility] [place] [address] 10/31/2025 2:20 PM ELECTRONICS TECH Office Visit [facility] [address] [place] [address] Zoe Price NP 3 [facility] [address] [place] [address] 02/12/2026 10:40 AM CDT Office Visit [facility] [address] [facility] [place] [address] Mihir Bird DO 3 [facility] [address] [place] [address] documented as of this encounter Visit Diagnoses Not on filedocumented in this encounter Care Teams General Partner Relationship Specialty Start Date End Date Cyndy Devine, GUM DIPPER [address] [facility] [address] [place] [address] PCP - General NURSE PRACTITIONER 04/19/24 documented as of this encounter
--- OUTSIDE RECORDS SUMMARY | 2025-08-20 00:17 | XMS_ITS ---
Author Organization [employer] [facility] Address [address] [facility] [place] [address] Care Team Providers Care Funeral Sales Manager Name Role Phone Cyndy Devine NP Primary Care Provider PCare Medication Therapy Management Status:PCare - Identified (Enrolling) Start date:06/18/2023 Enrollment reason:Self-enrolled Overview Address medication optimization for patients eligible for PCARE Medication Therapy Management program. Case Team Name Relationship Phone Rupesh Putnam [facility](Responsible Staff) Pharmacist - PCare [phone] Katherine Flores Clinical Emotionally Impaired Teacher - PCare Continued Care and Services Coordination
--- OUTSIDE RECORDS SUMMARY | 2025-08-20 00:17 | XMS_ITS | Encounter Summary ---
Author Organization [facility] Address [facility] [place] [address] Care Team Providers Care Court Usher Name Role Phone Cyndy Devine HOUSING PROPERTY MANAGER Primary Care Provider [phone] Encounter Details Date Type Department Care Team (Late st Contact Info) Description 08/02/2024 MyChart Message Enc [facility] [place] [address] [place] [address] Cyndy Devine, HOUSING PROPERTY MANAGER [address] [place] [address] Appointment Social History Tobacco Use Types Packs/Day Years Used Date Smoking Tobacco: Never Passive Smoke Exposure: Never Smokeless Tobacco: Never Alcohol Use Standard Drinks/Week Comments Yes 0 (1 standard drink = 0.6 oz pur e alcohol) social Comments No Sex and Gender Information Value Date Recorded Sex Assigned at Female 11/25/2024 9:43 PM CDT Legal Sex Female 4:12 PM INVASIVE PHYSICIAN Gender Identity Female 12/19/2024 11:46 AM CDT Sexual Orientation Straight 12/19/2024 11 :46 AM CDT documented as of this encounter Plan of Treatment Upcoming Encounters Date Type Department Care Team (Late st Contact Info) Description 09/21/2025 1:40 PM INVASIVE PHYSICIAN Office Visit [facility] - [address], [address] [place] [phone] Suzi Prieto MD [address] [place] [address], [place] [address] 10/31/2025 2:20 PM INVASIVE PHYSICIAN Office Visit [facility] [address] [facility], [address] [place] [address] Zoe Price NP 3 [facility] [address] [place] [address] 02/12/2026 10:40 AM CDT Office Visit [facility] - [address] [place] [address] Mihir Bird DO 3 [facility] [address] [place] [address] documented as of this encounter Visit Diagnoses Not on filedocumented in this encounter Care Teams Court Usher Relationship Specialty Start Date End Date Cyndy Devine, HOUSING PROPERTY MANAGER [address] [place] [address] PCP - General NURSE PRACTITIONER 04/19/24 documented as of this encounter
--- OUTSIDE RECORDS SUMMARY | 2025-08-20 00:17 | XMS_ITS | Encounter Summary ---
Author Organization [facility] Address [address] [place] [address] Care Team Providers Care Produce Manager Name Role Phone SybilCyndy vital Ct PANTOGRAPH WATCHER Primary Care Provider [phone] Encounter Details Date Type Department Care Team (Late Contact Info) Description 12/29/2024 Molecule Software Message Enc [facility] - [address] [place] [address] Katlyn, [facility] Provider [facility] Information Social History Tobacco Use Types Packs/Day [...] PM CDT Legal Sex Female 4:12 PM PICK OUT HAND Gender Identity Female 12/19/2024 11:46 AM CDT Sexual Orientation Straight 12/19/2024 11 :46 AM CDT documented as of this encounter Plan of Treatment Upcoming Encounters Date Type Department Care Team (Late Contact Info) Description 09/21/2025 1:40 PM PICK OUT HAND Office Visit [facility] - [address], [address] [place] [phone] Suzi Prieto MD 3 [place] [address] 10/31/2025 2:20 PM PICK OUT HAND [facility] [address] [facility], [address] [place] [address] Zoe Price NP 3 [facility] [address] [place] [address] 02/12/2026 10:40 AM CDT Office Visit [facility] [address] [facility] [place] [phone] Mihir Bird DO 3 [facility] [address] [place] [address] documented as of this encounter Visit Diagnoses Not on filedocumented in this encounter Care Teams Produce Manager Relationship Specialty Start Date End Date Cyndy Devine, PANTOGRAPH WATCHER [address] [facility] [address] [place] [address] PCP - General NURSE PRACTITIONER 04/19/24 documented as of this encounter
--- OUTSIDE RECORDS SUMMARY | 2025-08-20 00:17 | XMS_ITS | Clinical Summary ---
Author Organization [facility] Address [address] [place] [address] Care Team Providers Care Roll Scale Worker Name Role Phone Cyndy Devine CABINET MAKER Primary Care Provider [phone] Allergies Active Allergy Reactions Criticality Noted Date [...] days. 12 capsule 1 01/06/20 25 Active folic acid (FOLVITE) 1 MG [...] of the face 20 g 2 05/31/20 Active Additional Information Patient not taking.Reason: pt states not taking, Reported on 07/16/2025 omeprazole (PRILOSEC) 20 MG capsuleIndicati ons:Gastroesoph ageal reflux disease without esophagitis Take 1 capsule (20 mg total) by mouth daily. 90 capsule 1 07/12/20 Active losartan-hydroC HLOROthiazide (HYZAAR) 50-12.5 MG tablet daily. Active SUMAtriptan (IMITREX) 25 MG tablet Take 1 tablet (25 mg total) by mouth 2 (two) times daily as needed. 05/03/20 25 Active losartan (COZAAR) 100 MG tabletIndicatio ns:Hypertension , unspecified type TAKE 1 TABLET(100 MG) BY MOUTH DAILY 90 tablet 1 08/17/20 25 Active montelukast (SINGULAIR) 10 MG tabletIndicatio ns:Allergic rhinitis due to other allergic trigger, unspecified seasonality TAKE 1 TABLET(10 MG) BY MOUTH DAILY 30 tablet 08/17/20 25 Active losartan (COZAAR) 100 MG tabletIndicatio ns:Hypertension , unspecified type TAKE 1 TABLET(100 MG) BY MOUTH DAILY 90 tablet 1 01/18/20 25 025 Disconti nued(Reo rder) montelukast (SINGULAIR) 10 MG tabletIndicatio ns:Allergic rhinitis due to other allergic trigger, unspecified seasonality TAKE 1 TABLET(10 MG) BY MOUTH DAILY 30 tablet 07/03/20 25 025 Disconti nued(Reo rder) Active Problems Problem [...] Department Care Team Description 07/16/2025 11:00 AM CIVIL ENGINEERING DESIGN DRAFTSPERSON Office Visit [address], [address] [place] [phone] Zoe Price NP Establish Care (Daily chronic headaches, having one currently. ) 07/16/2025 Therapy Plan [address], Suite [facility] [place] [address] Suzi Prieto MD 07/16/[address], [address] [place] [address] Zoe Price NP Appointment Request (Botox appt needs changed) 07/16/2025 Travel 06/14/2025 MyChart Message Enc [address], [address] [place] [address] [facility] Provider Schedule Consultation Appointment 06/07/2025 MyChart Message Enc [address], [address] [place] [address] [facility] Provider Schedule Consultation Appointment 06/05/2025 Telephone [facility] [place] [address] [place] [address] Cyndy Devine, SHADY Prior Authorization 06/01/2025 Telephone To Cardiovascular-O on [facility] [address] [place] [address] Katrin Hall, RMA Schedule Test (Reg stress) 05/31/2025 Thomas Golfhart Message Enc [facility] [address], [address] [place] [address] [facility] Provider Schedule Consultation Appointment 05/30/2025 4:20 PM CDT Office Visit [place] [address] [facility] [address] [place] [address] Cyndy Devine, SHADY Headache 05/30/2025 Travel from Last 3 Months Immunizations Immunization Administration [...] PM CDT Legal Sex Female 4:12 PM CIVIL ENGINEERING DESIGN DRAFTSPERSON Gender Identity Female 12/19/2024 11:46 AM CDT Sexual Orientation Straight 12/19/2024 11 :46 AM CDT Last Filed Vital Signs Vital Sign Reading Time Taken Comments Blood Pressure 126/85 07/16/2025 11:17 AM CIVIL ENGINEERING DESIGN DRAFTSPERSON Pulse 88 07/16/2025 11:17 AM CIVIL ENGINEERING DESIGN DRAFTSPERSON Temperature 36.7 C (98.1 F) 05/30/2025 4:10 PM CDT Respiratory Rate 19 05/30/2025 4:10 PM CDT Oxygen Saturation 100% 07/16/2025 11:17 AM CIVIL ENGINEERING DESIGN DRAFTSPERSON Inhaled Oxygen Concentration - - Weight 77.2 kg (170 lb 1.6 oz) 07/16/2025 11:17 AM CIVIL ENGINEERING DESIGN DRAFTSPERSON Height 149.9 cm (4' 11) 07/16/2025 11:17 AM CIVIL ENGINEERING DESIGN DRAFTSPERSON Body Mass Index 34.36 07/16/2025 11:17 AM CIVIL ENGINEERING DESIGN DRAFTSPERSON Plan of Treatment Upcoming Encounters Date Type Department Care Team (Late st Contact Info) Description 09/21/2025 1:40 PM CIVIL ENGINEERING DESIGN DRAFTSPERSON [facility] [address], [address] [place] [phone] Suzi Prieto MD 3 [place], [place] [phone] 10/31/2025 2:20 PM CIVIL ENGINEERING DESIGN DRAFTSPERSON [facility] [address] [place] [phone] Zoe Price NP 3 [facility] [address] [place] [address] 02/12/2026 10:40 AM CDT [facility] [address] [facility] [address] [place] [phone] Mihir Bird DO [address] [place] [address] Health Maintenance Due Date Last Done Comments Cervical Cancer Screening Pap Smear (Age 30 to 64) Every 3 Years 1970 Hepatitis B Vaccines (1 of 3 - 19+ 3-dose series) 1990 Annual Physical 04/19/2025 04/19/2024 COVID-19 Vaccine (3 - season) 2025 12/16/2020, 11/25/2020 Influenza Adult (#1) [...] Years) Discontinued 05/29/2024, 05/29/2024, 12/10/2020 PHQ-2 (Physician [place]) Completed 12/19/2024 Hepatitis A Vaccines Aged Out [...] AM CDT) COLOGUARD RESULT Negative Negative [employer] (CLIA #:[id number]) Comment: NEGATIVE TEST RESULT. A negative Cologuard [...] Long et al, N Engl J Med 2014;370(14):1975-2980) The normal value (reference range) for this assay is negative. COLOGUARD RE-SCREENING RECOMMENDATION: Periodic colorectal cancer screening is an important part of preventive healthcare for asymptomatic individuals at average risk for colorectal cancer. Following a negative Cologuard result, the [place] Cancer Society and U.S. Multi-Society Task Force screening guidelines recommend a Cologuard re-screening interval of 3 years. References: [place] Cancer Society Guideline for Colorectal Cancer Screening: https://www.cancer.org/cancer/xkatv-dhtked-wlgnob/kdjtwytcb-oxronxezx-yvjidvj/ac s-rec ommendations.html.; Navarro MCCALLUM, Toy CR, Gisel WhiteK, Colorectal Cancer Screening: Recommendations for Physicians and Patients from the U.S. Multi-Society Task Force on Colorectal Cancer Screening , Am J Gastroenterology 2017; 112:8303-5065. TEST DESCRIPTION: Composite algorithmic analysis of stool [...] Donovan. et al, N Engl J Med 2014;370(14):8037-7165.) Cologuard may produce a false negative or false positive result (no colorectal cancer or precancerous polyp present at colonoscopy follow up). A negative Cologuard test result does not guarantee the absence of CRC or advanced adenoma (pre-cancer). The current Cologuard screening interval is every 3 years. ([place] Cancer Society and U.S. Multi-Society Task Force). Cologuard performance data in a 10,000 patient pivotal study using colonoscopy as the reference method can be accessed at the following location: www.[employer]/results. Additional description of the Cologuard test process, warnings and precautions can be found at www.cologuard.com. STOOL STOOL SPECIMEN / Unknown 05/29/2024 11:50 AM CDT 05/31/2024 1:50 PM CDT us Cyndy Devine NP BODY FLUIDS AND STOOLS ADA PIPER Final Result [employer], [employer] [address] [place] [address], [employer] (CLIA #:[id number]) [address] [place] [address] * MAMMOGRAM GENERIC (SCAN ORDER) (05/02/2024) Anatomical Region Laterality Modality Other 05/02/2024 us [facility] Scanned SCANNING Final Resu lt * HEPATITIS C ANTIBODY (04/19/2024 3:50 PM CDT) HEPATITIS C AB NON-REACTI VE NON-REACT HILARIO 04/19/2024 10:27 PM CDT [facility] Comment: ANTIBODIES TO HCV NOT DETECTED. DOES NOT EXCLUDE THE POSSIBILITY OF EXPOSURE TO HCV. 04/19/2024 3:50 PM CDT Cyndy Devine NP LABORATORY Final Resul t [facility] [address] [place] [address], [place] [phone] * PAP SMEAR WITH HPV (04/11/2024) 04/11/2024 [facility] Scanned SCANNING Final Resu lt from Last 3 Months or Most Recently Relevant to Health Maintenance Insurance [facility] Care Teams Roll Scale Worker Relationship Specialty Start Date End Date Cyndy Devine, SHADY [address] [place] [address] PCP - General NURSE PRACTITIONER 04/19/24
--- OUTSIDE RECORDS SUMMARY | 2025-08-20 00:18 | XMS_ITS | Encounter Summary ---
Author Organization [facility] Address [address] [place] [address] Care Team Providers Care Entrance Guard Name Role Phone Sybil, Cyndy Ct PATHOLOGY TECHNOLOGIST Primary Care Provider [phone] Encounter Details Date Type Department Care Team (Late st Contact Info) Description 04/01/2023 [employer] Office [address] [place] [address] [employer], [facility] Provider Payment Plan Social History Tobacco Use Types Packs/Day Years Used Date Smoking Tobacco: Never Passive Smoke Exposure: Never Smokeless Tobacco: Never Alcohol Use Standard Drinks/Week Comments Yes 0 (1 standard drink = 0.6 oz pur e alcohol) social Comments No Sex and Gender Information Value Date Recorded Sex Assigned at Female 11/25/2024 9:43 PM CDT Legal Sex Female 4:12 PM CIAIO COUNTER MOLDER Gender Identity Female 12/19/2024 11:46 AM CDT Sexual Orientation Straight 12/19/2024 11 :46 AM CDT documented as of this encounter Plan of Treatment Upcoming Encounters Date Type Department Care Team (Late st Contact Info) Description 09/21/2025 1:40 PM CIAIO COUNTER MOLDER [facility] [address], [address] [place] [address] Suzi Prieto MD 3 [place] [address] 10/31/2025 2:20 PM CIAIO COUNTER MOLDER [facility] [address] [facility], [address] [place] [address] Zoe Price, SHADY 3 [facility] [address] [place] [address] 02/12/2026 10:40 AM CDT Office Visit [facility] Mult[facility] Care - [facility] [address] [facility] [place] [address] Mihir Bird DO 3 [facility] [address] [place] [address] documented as of this encounter Visit Diagnoses Not on filedocumented in this encounter Additional Health Concerns Infection Onset Date Last Indicated Resolved Time COVID-19 Rule Out 07/04/2024 07/04/2024 07/04/2024 1:25 PM CDT documented as of this encounter Care Teams Entrance Guard Relationship Specialty Start Date End Date Cyndy Devine, PATHOLOGY TECHNOLOGIST [address] [place] [address] PCP - General NURSE PRACTITIONER 04/19/24 documented as of this encounter
--- OUTSIDE RECORDS SUMMARY | 2025-08-20 00:18 | XMS_ITS | Patient Health Record ---
Author Organization [facility] [employer] [place] ([address]) Address [address] [place] [address] Care Team Providers Care Flight Nurse Name Role Phone Mihir Vale Primary Care Provider Unavail able Lian Lance Unavailable [phone] Allergies No Known Allergies Reason For Referral [...] review and pick correct strength-formulat ion from [employer] options. If intended option is not shown, [...] Status W/U Status Risk Notes Problem Hypertension (60601666) Hypertension (401.9) Active confirmed Problem Asthma (490007287) ASTHMA NOS (493.90) Active confirmed Problem Chronic allergic conjunctivitis (96481541) Other chronic allergic conjunctivitis (H10.45) Active confirmed Problem Allergic rhinitis caused by pollen (disorder) (01425002) Allergic rhinitis due to pollen (J30.1) Active confirmed Problem Allergic rhinitis (01219518) Other allergic rhinitis (J30.89) Active confirmed Problem Uncomplicated moderate persistent asthma (216833655) Moderate persistent asthma, uncomplicated (J45.40) Active confirmed Problem Allergic rhinitis caused by animal hair and dander (395645000580443) Allergic rhinitis due to animal (cat) (dog) hair and dander (J30.81) Active confirmed Plan Of Treatment No Information Insurance Providers Payer Name Payer Address Payer Phone Subscriber Number Group Number Insured Name Patient Relationship to Insured Coverage Start Date Coverage End Date [facility] [address] [place] [address] [id number] Li Marquez Self - patient is the insured 1 Medical (General) History Medical History History ICD Code Hypertension 401.9 ASTHMA NOS 493.90 Surgical History Surgery Date(Month/Year) sinus surgery
[2025-08-20] MEDS: ACETAMINOPHEN 500 MG TABLET 1000 MG PO (07:00)
[2025-08-20] MEDS: LACTATED RINGERS 1,000 ML 30 ML IV CONT ×2 (07:00→10:47)
--- NOTE | 2025-08-20 07:15 | WPDHPUPDATE1 ---
History and Physical Update Update Date/Time: 08/20/25 07:15 History and Physical has been reviewed, including an updated exam of the patient. There are NO changes in the patient's condition. Risks, benefits, and alternatives have been discussed and questions answered. Patient agrees to proceed with procedure.
--- NOTE | 2025-08-20 07:21 | WPDANESEPPF ---
Anes - Initial Pre Proc Eval Procedure: Operation Date: 08/20/25 07:30 Proposed Procedures p Robotic Sacrocolpopexy, Urethral Sling - Mc Piña MD s Robotic Supracervical Hysterectomy with Bilateral Salpingectomy - Bulmaro Lacey MD Date/Time: 08/20/25 07:21 Surgeon: Mc Piña MD Pre Op Diagnosis: cystocele, uterine prolapse, stress incont Patient Data Age: 55 Gender: F Height: 1.5 m Weight: 76.8 kg Last Vital Signs Temp 97.8 F 08/09/25 08:46 Pulse 77 08/09/25 08:46 Resp 18 08/09/25 08:46 BP 128/88 08/09/25 08:46 Pulse Ox 100 08/09/25 08:46 O2 Del Method Room Air 08/09/25 08:46 Allergies Allergy/AdvReac Type Severity Reaction Status Date / Time erythromycin base Allergy Unknown Unknown Verified 08/09/25 10:30 Home Medications ?Medication ?Instructions ?Recorded ?Confirmed ?Type montelukast 10 mg tablet 10 mg PO DAILY #90 tabs 11/08/20 08/09/25 Rx (Singulair) galcanezumab-gnlm 120 mg/mL 120 mg subcut MONTHLY 02/21/21 08/09/25 History subcutaneous pen injector (Emgality Pen) lactobacillus combination no.4 3 3,000 mmu cells PO DAILY 03/25/21 08/09/25 History billion cell capsule (Probiotic) lisinopril 20 mg tablet 20 mg PO DAILY 04/09/22 08/09/25 History docosahexaenoic acid (dha)-epa 120 1 cap PO DAILY 09/22/23 08/09/25 History mg-180 mg capsule (Fish Oil) multivitamin 1 tablet PO DAILY 09/22/23 08/09/25 History albuterol 90 mcg/actuation aerosol 1 mcg inhalation DAILY 04/11/24 08/09/25 History inhaler amlodipine 5 mg tablet 5 mg PO DAILY 07/10/25 08/09/25 History albuterol 90 mcg-budesonide 80 2 inh inhalation PRN 08/09/25 08/09/25 History mcg/actuation HFA aerosol inhaler (Airsupra) cetirizine 10 mg tablet 10 mg PO HS 08/09/25 08/09/25 History fluticasone fur. 200 mcg-umeclid 1 inh inhalation DAILY 08/09/25 08/09/25 History 62.5 mcg-vilant 25 mcg inhalat.powder (Trelegy Ellipta) losartan 100 mg tablet 100 mg PO DAILY 08/09/25 08/09/25 History magnesium 200 mg tablet 200 mg PO DAILY 08/09/25 08/09/25 History omeprazole 20 mg capsule,delayed 20 mg PO DAILY 08/09/25 08/09/25 History release scopolamine base 1 mg over 3 days 1 patch transdermal ONCE #1 ea 08/09/25 08/09/25 Rx transdermal patch topiramate 25 mg tablet 25 mg PO DAILY HEADACHE 08/09/25 08/09/25 History Patient hx anesthesia problems: none Family hx anesthesia problems: none Results Review: All pre-operative results and documents have been reviewed as part of the pre-operative evaluation. [facility] Past Medical History Medical History Abnormal mammogram Migraines Environmental and seasonal allergies Mild intermittent asthma in adult without complication Surgical History Surgical History S/P breast augmentation History of endometrial ablation 2003 H/O section x 3 History of sinus surgery History of tubal ligation Family History Family History Father Hypertension Diabetes mellitus Mother Hypertension Family history of diabetes mellitus in first degree relative Family history of malignant neoplasm of ovary Diabetes mellitus Social History Social History Smoking status: Never smoker Second hand tobacco smoke exposure: No Alcohol intake: current Alcohol use details: Rarely. Substance use: never Substance use type: does not use Lack of Transportation: No Lack of Food: Never True Current Housing: I Have Housing Concerned About Future Housing: No Difficulty Paying Gas/Electric Bills: No Difficulty Paying for Meds: No Currently Unemployed: No Education: Trade/Vocational Certificate Difficulty w/ Childcare or Family Care: No Living arrangements: with family Occupation/Education: occupation Gender identity (if verbalized by the patient): Female Spiritual care concerns: No Anes - Eval Final PreProcedure Day of Procedure 08/20/25 07:21 Patient weight: obese Lungs: normal air movement Airway: Mallampati scale class II Neurological: alert and oriented Last oral intake: >/= 8 hours ASA classification: III Emergent: no Anesthetic plan: proceed Anesthesia type and monitoring: general ETT and standard monitoring Results Review: All pre-operative results and documents have been reviewed as part of the pre-operative evaluation. HTN, asthma, stable of recent, pt is active overall, 1-2 fos, no cp or sob. Informed Consent: The patient's anesthetic plan and its attendant risks and benefits were discussed with the patient/family/POA. Questions were solicited and answers provided to the satisfaction of the patient/family/POA.
--- NOTE | 2025-08-20 07:23 | WPDHPUPDATE1 ---
History and Physical Update Update Date/Time: 08/20/25 07:23 History and Physical has been reviewed, including an updated exam of the patient. There are NO changes in the patient's condition. Risks, benefits, and alternatives have been discussed and questions answered. Patient agrees to proceed with procedure.
[2025-08-20] MEDS: ceFAZolin 2 GM in SODIUM CHLORIDE 0.9% IV 50 ML 100 ML IVPB (07:29)
[2025-08-20] MEDS: metroNIDAZOLE 500 MG/ISO 100ML 500 MG/100 ML BAG 100 MG IVPB ×2 (07:50→16:59)
[2025-08-20] MEDS: BUPIVACAINE/EPINEPHRINE 0.5% 50 ML VIAL 40 ML INFILTRATE (08:23)
--- NOTE | 2025-08-20 08:38 | S_PTH ---
PATIENT: Li Marquez LOC: [facility] U#:[id number] AGE/SX: 55/F ROOM: RE08/20/[address]: Mc Piña MD : 1970 BED: DIS: 08/21/2025 SPEC #: [id number] RECD: 08/20/25 12:04 STATUS: FAITH REQ #: [id number] BERNABE: 08/20/25 08:[address]: Mc Piña DEPT: [facility] Surgical RECD BY: Alejandra Aguilar ENTERED: 08/20/25 12:04 SP TYPE: Surgical OTHR DR: Cyndy Devine, CONTINUING EDUCATION DIRECTOR Tissues: A - Uterus Procedures: Hematoxylin and Eosin Stain Gross and Microscopic Level 5
--- NOTE | 2025-08-20 08:59 | P.OP_ITS ---
Procedure Note - Detailed Date of Procedure 08/21/25 Pre-op Diagnosis cystocele, uterine prolapse, stress incont Post-op Diagnosis Same Procedure Performed Laparoscopic robotic assisted supracervical hysterectomy with bilateral salpingo-oophorectomy Surgeon Bulmaro Lacey MD Operating System Designer Arden Ruiz Anesthesia General Indications Uterine prolapse Findings Enlarged uterus, normal ovaries Description of Procedure After Dr. Piña inserted ports then attention was turned to surgery console. The right round ligament was ligated, the anterior leaf of broad ligament was dissected, side of the bladder was dissected from the lower uterine segment and upper cervix. The right infundibulopelvic ligament was ligated. The a posterior leaf of the broad ligament was further dissected. The ascending uterine vessels on the right were cauterized. The uterine vessels were ligated. Attention was turned to the left round ligament which was ligated and the anterior leaf of the broad ligament was dissected anteriorly. The rest of the vesicouterine peritoneum was from upper cervix. The infundibulopelvicligament was ligated. The ascending uterine vessels were ligated. The uterine arteries were ligated. The uterus was removed from cervix. The uterus was dissected into four pieces and two endocatch bags were used to put specimen in. Hemostasis with cautery was obtained at cervix. Dr. Piña resumed his portion of the surgery. Estimated Blood Loss 10 Packing No Pathology Yes (uterus with right and left fallopian tubes and ovaries and paratubal cysts) Complications No immediate complications Condition Stable Disposition No change [facility] Billing Surgery - Charge Forward: Surgery Billing
--- NOTE | 2025-08-20 11:02 | W.PM.PROC2 ---
Procedure Note - Detailed Date of Procedure 08/20/25 Pre-op Diagnosis uterine prolapse, stress incontinence Post-op Diagnosis Same Procedure Performed Robotic assisted laparoscopic sacral colpopexy Urethral sling Cystoscopy Surgeon Mc Piña MD Anesthesia General Indications This is a woman with uterine prolapse as well as stress incontinence. She desires surgical correction. She is here for the above. She understands risks of bleeding, infection, diskitis, damage to surrounding organs, bowel injury, bowel obstruction, mesh related complications including exposure and extrusion, postoperative voiding dysfunction including incontinence and retention, need for ancillary procedures, dyspareunia, recurrence of prolapse, and other perioperative intraoperative postoperative complications. She agrees to proceed. Findings See below Description of Procedure She was correctly identified. Informed consent obtained. She from the operating room. She was given general anesthesia. She was given appropriate perioperative antibiotics. She was placed a low lithotomy position. Pressure points were padded. A time-out performed. I marked out the skin 3 fingerbreadths cephalad to the umbilicus. I anesthetized the skin. I incised the skin. I dissected down to the fascia. I grasped the fascia with Theresa clamps. I entered the fascia sharply in a Warren type technique. I placed sutures for later fascial closure. I placed a midline trocar. I examined the abdomen. There is no sign of any injury. Under direct vision I placed 2 additional trocars in the right upper quadrant and 2 additional trocars the left upper quadrant. She was placed in steep Trendelenburg. The robot was docked. Her resident care aid completed their portion of the procedure. Please see that operative report for details. I then sat at the console. The Sizer in the vagina created plane on the anterior and posterior vaginal wall. Of note she had a very large intravaginal cervix which made the exposure difficult. She also had significant perirectal fat and retroperitoneal fat in the pelvis which again made visualization and dissection more difficult. I took great care not to injure the vagina, bladder, or rectum. I introduced the mesh into the abdomen. I sewed the anterior leaflet of mesh on the anterior vaginal wall. I sewed the posterior leaflet of mesh on the posterior vaginal wall. This was done with several sutures of 2 0 [place]. I reflected the colon laterally. I opened the posterior peritoneum over the sacral promontory. She had a very thick presacral fat pad and a very narrow pelvis. I carried this into the cul-de-sac. I located the right ureter and kept it free and lateral throughout the entire dissection. I freed up the edges for later retroperitonealization. I located the anterior longitudinal ligament the sacrum. I cleaned off all fatty tissues. I then tensioned my mesh appropriately. I did a vaginal exam the bedside. I assured prolapse reduction without undue tension. Again a very large intravaginal component of cervix was noted. I then sewed the proximal leaflet of mesh onto the anterior longitudinal ligament of the sacrum with 3 sutures of 2 0 [place]stat[place]-S[place]. I then used a 2 0 Monocryl to completely and meticulously retroperitonealized all mesh. I allowed the colon to go back to its normal anatomic location. There is no sign of any impingement. The specimen was then removed. All ports removed. Fascia was tied down. An additional suture was used to fully close the fascia. Skin was closed with Monocryl and surgical glue. She was repositioned and prepped for urethral sling. I marked out the inner thigh incisions. I anesthetized the skin and made the incisions. I then anesthetized the anterior vaginal wall at the mid urethra. I made a 1 cm incision. I dissected out laterally taking great care not to injure the refilled vaginal wall. I passed the helical trocars. I did this 1st on the left and then on the right. This was done from the thigh incision towards the vaginal incision. Sling was connected to the trocars and brought out the thigh incision. I tensioned the sling appropriately. I cut and the plastic sheaths. I closed the incision with 2 0 Vicryl. I then performed cystoscopy. There was no tumors or surgical artifact. Both ureters were seen to excrete clear yellow urine. There is no surgical artifact in the bladder or urethra. I cut the excess sling material. Close incision with glue. She was awakened and transferred to PACU in stable condition. Implants Sacral colpopexy mesh Urethral sling Estimated Blood Loss 40 Packing No Pathology None sent Complications No immediate complications Condition Stable Disposition PACU
[2025-08-20] MEDS: fentaNYL CITRATE INJ (*CRX) 100 MCG/2 ML VIAL 25 MCG IV PUSH ×3 (11:15→11:25)
--- NOTE | 2025-08-20 12:08 | PC.NURSE ---
This patient, Li Marquez, was received from PACU on 08/20/25 at 1208. Patient/family oriented to unit policies and routines.
[2025-08-20] MEDS: ALBUTEROL SULFATE (*SP) INHALER 1 PUFF (12:57)
[2025-08-20] MEDS: KCL 20 MEQ/D5/0.45% SOD CHL 1,000 ML 100 ML IV CONT (14:39)
[2025-08-20] MEDS: ceFAZolin 1 GM in SODIUM CHLORIDE 0.9% IV 50 ML 100 ML IVPB ×2 (14:40→23:00)
[2025-08-20] MEDS: KETOROLAC 15 MG/ML VIAL (*BKC) IV PUSH (14:43)
[2025-08-20] MEDS: LOSARTAN POTASSIUM 100 MG TABLET PO (14:44)
[2025-08-20] MEDS: DOCUSATE SODIUM 100 MG CAPSULE PO (14:45)
[2025-08-20] MEDS: MONTELUKAST SODIUM 10 MG TABLET PO (14:45)
[2025-08-20] MEDS: ACETAMINOPHEN 325 MG TABLET 650 MG PO ×2 (14:45→20:25)
[2025-08-20] MEDS: TOPIRAMATE 25 MG TABLET PO (14:50)
[2025-08-20] MEDS: HYDROcodone/acetaminophen (*CRX) 5-325 MG TABLET 1 TAB PO (16:58)
[2025-08-20] MEDS: LORATADINE 10 MG TABLET PO (20:25)
[2025-08-21] MEDS: metroNIDAZOLE 500 MG/ISO 100ML 500 MG/100 ML BAG 100 MG IVPB (01:00)
[2025-08-21] MEDS: KETOROLAC 15 MG/ML VIAL (*BKC) IV PUSH (04:10)
[2025-08-21 04:15] VITALS: BP 131/69; PULSE 89; RESP 16; TEMP 36.9; O2SAT 99
[2025-08-21] MEDS: HYDROcodone/acetaminophen (*CRX) 5-325 MG TABLET 1 TAB PO (07:17)
[2025-08-21 07:40] VITALS: BP 120/72; PULSE 91; RESP 16; TEMP 37.2; O2SAT 100
--- NOTE | 2025-08-21 08:03 | PM.GYNPNOP ---
VIDEO GAMES STORYWRITER - A/P Assessment and plan (1) S/P hysterectomy: Code(s): Z90.710 - Acquired absence of both cervix and uterus Status: Acute Assessment and Plan: 1. Doing well. Reviewed surgery findings. 2. Discharge home today. Postoperative Procedures: Procedures Operation Date: 08/20/25 07:30 Actual Procedure Side Surgeon p Robotic Sacrocolpopexy, Urethral Sling Not Applicable Mc Piña MD s Robotic Supracervical Hysterectomy with Bilateral Salpingo-oophorectomy Bilateral Bulmaro Lacey MD Time Spent With Patient Time: Total time spent is greater than 50% in coordination of care (as documented) at patient's floor/unit and/or counseling patient: Time with patient: less than 15 minutes VIDEO GAMES STORYWRITER- PN:Subj Post-Op Subjective Date/time seen: 08/21/25 08:03 Interval history: Has not urinated since cath out. Positive flatus. No CP or SOB. Subjective: pain is well controlled and patient is tolerating oral intake Exam Const: General: no acute distress Resp: Effort & Inspection: normal respiratory effort GI: Other: incisions intact, appropriate tenderness VIDEO GAMES STORYWRITER - PN: Obj Data Vital Signs Vital Signs: Vital Signs - 24 hr 08/20/25 10:47 08/20/25 11:00 08/20/25 11:15 Temperature 97.5 F L Pulse Rate 85 77 75 Respiratory Rate 16 10 L 12 Blood Pressure 120/78 120/73 135/78 Pulse Oximetry 100 100 100 Oxygen Delivery Simple Face Mask Simple Face Mask Simple Face Mask Oxygen Flow Rate 8 8 8 08/20/25 11:30 08/20/25 11:45 08/20/25 12:15 Temperature Pulse Rate 84 81 Respiratory Rate 13 14 Blood Pressure 114/77 128/86 Pulse Oximetry 95 100 100 Oxygen Delivery Nasal Cannula Nasal Cannula Nasal Cannula Oxygen Flow Rate 2 2 2 08/20/25 12:15 08/20/25 16:15 08/20/25 16:15 Temperature 97.5 F L 97.7 F Pulse Rate 89 103 H Respiratory Rate 20 20 Blood Pressure 116/79 131/83 Pulse Oximetry 100 99 Oxygen Delivery Room Air Oxygen Flow Rate 08/20/25 20:20 08/20/25 20:20 08/20/25 23:00 Temperature 98.6 F 98.4 F Pulse Rate 105 H 99 Respiratory Rate 16 16 Blood Pressure 117/71 115/66 Pulse Oximetry 98 98 Oxygen Delivery Room Air Oxygen Flow Rate 08/21/25 04:15 Temperature 98.5 F Pulse Rate 89 Respiratory Rate 16 Blood Pressure 131/69 Pulse Oximetry 99 Oxygen Delivery Oxygen Flow Rate Intake/Output Intake/Output: Intake & Output 08/18/25 08/19/25 08/20/25 08/21/25 23:59 23:59 23:59 23:59 Intake Total 1640 790 Output Total 3725 250 Balance -2085 540 Meds/Results Medications: Active Medications Generic Name Dose Route Start Last Admin Trade Name Freq PRN Reason Stop Dose Admin Acetaminophen 650 mg 08/20/25 11:57 08/20/25 20:25 Acetaminophen 325 Mg Tablet PO 650 mg Q4H PRN Administration Mild Pain (1-3) or Fever Hydrocodone Bitart/Acetaminophen 1 tab 08/20/25 11:57 08/21/25 07:17 Hydrocodone/Acetaminophen (*Crx) 5-325 Mg Tablet PO 1 tab Q4H PRN Administration Pain Rated 4-5 Albuterol 2 puff 08/20/25 12:35 Albuterol Sulfate (*Sp) Aerosol 1 Puff INHALATION Q6HRT PRN Shortness Of Breath Amlodipine Besylate 5 mg 08/20/25 11:57 08/20/25 14:50 Amlodipine Besylate 5 Mg Tablet PO 5 mg DAILY BILLIE Administration Cephalexin HCl 500 mg 08/21/25 09:00 Cephalexin 500 Mg Capsule PO QID BILLIE Diphenhydramine HCl 25 mg 08/20/25 11:57 Diphenhydramine Hcl Inj 50 Mg/Ml Vial IV PUSH Q6H PRN Itching Docusate Sodium 100 mg 08/20/25 11:57 08/20/25 14:45 Docusate Sodium 100 Mg Capsule PO 100 mg DAILY BILLIE Administration Enoxaparin Sodium 30 mg 08/21/25 09:00 Enoxaparin 30 Mg/0.3 Ml Syringe SUB-Q DAILY BILLIE Fluticasone Propionate 2 puff 08/20/25 12:35 Fluticasone Prop 44 Mcg (*Sp) 10.6 Gm INHALATION Q12HRT PRN Shortness Of Breath Fluticasone/Umeclidinium/Vilanterol 1 puff 08/20/25 11:57 08/20/25 15:17 Fluticasone/Umeclidin/Vilanter 200-62.5-25 Mcg Ellipta INHALATION Not Given DAILY BILLIE Potassium Chloride/Dextrose/Sod Cl 1,000 mls @ 100 mls/hr 08/20/25 11:57 08/21/25 06:39 Kcl 20 Meq/D5/0.45% Sod Chl IV CONT Not Given .Q10H BILLIE Metronidazole 500 mg in 100 mls @ 100 mls/hr 08/20/25 16:00 08/21/25 01:00 Flagyl 500 Mg/Iso Soln 100 Ml IVPB 100 mls/hr Q8H BILLIE Administration Ketorolac Tromethamine 15 mg 08/20/25 11:57 08/21/25 04:10 Ketorolac 15 Mg/Ml Vial (*Bkc) IV PUSH 15 mg Q8H PRN Administration Pain Rated 5 or Less Loratadine 10 mg 08/20/25 21:00 08/20/25 20:25 Loratadine 10 Mg Tablet PO 10 mg HS BILLIE Administration Losartan Potassium 100 mg 08/20/25 11:57 08/20/25 14:44 Losartan Potassium 100 Mg Tablet PO 100 mg DAILY BILLIE Administration Montelukast Sodium 10 mg 08/20/25 11:57 08/20/25 14:45 Montelukast Sodium 10 Mg Tablet PO 10 mg DAILY BILLIE Administration Ondansetron HCl 4 mg 08/20/25 11:57 Ondansetron Inj 4 Mg/2 Ml Vial IV PUSH Q6H PRN Nausea And Vomiting Pantoprazole Sodium 40 mg 08/21/25 09:00 Pantoprazole 40 Mg Tablet PO QAM BILLIE Topiramate 25 mg 08/20/25 11:57 08/20/25 14:50 Topiramate 25 Mg Tablet PO 25 mg DAILY BILLIE Administration Zolpidem Tartrate 5 mg 08/20/25 11:57 Zolpidem Tartrate (*Crx) 5 Mg Tablet PO HS PRN Insomnia
[2025-08-21] MEDS: FLUTICASONE/UMECLIDIN/VILANTER 200-62.5-25 MCG ELLIPTA 1 PUFF INHALATION (08:26)
[2025-08-21 08:30] VITALS: PULSE 95; RESP 14
[2025-08-21] MEDS: DOCUSATE SODIUM 100 MG CAPSULE PO (09:11)
[2025-08-21] MEDS: CEPHALEXIN 500 MG CAPSULE PO (09:11)
[2025-08-21] MEDS: LOSARTAN POTASSIUM 100 MG TABLET PO (09:11)
[2025-08-21] MEDS: MONTELUKAST SODIUM 10 MG TABLET PO (09:11)
[2025-08-21] MEDS: ENOXAPARIN 30 MG/0.3 ML SYRINGE SUB-Q (09:11)
[2025-08-21] MEDS: PANTOPRAZOLE 40 MG TABLET PO (09:11)
[2025-08-21] MEDS: TOPIRAMATE 25 MG TABLET PO (09:11)
--- NOTE | 2025-08-21 09:46 | WPDANESPN ---
Anes - Prog Note Post-Op Date/Time: 08/21/25 09:46 Cardiovascular status: normal Respiratory status: normal Airway patency: baseline Mental status: baseline Post-Op hydration status: normal Vital Signs: Last Vital Signs Temp 37.2 C 08/21/25 07:40 Pulse 95 08/21/25 08:30 Resp 14 08/21/25 08:30 BP 120/72 08/21/25 07:40 Pulse Ox 100 08/21/25 07:40 O2 Del Method Room Air 08/21/25 07:20 O2 Flow Rate 2 08/20/25 12:15 Pain Score (VAS): 2 I/O: Intake & Output 08/20/25 08/21/25 08/21/25 23:59 07:59 15:59 Intake Total 940 790 Output Total 3350 550 Balance -2410 240 Post-procedural complaints: none Patient Feedback: Patient satisfied with anesthetic care.
== END 2025-08-21 10:15 | disposition home or self-care (01) ==
LOC: ANHSURGERY 07:26 → ANHOB2 17:24
PROVIDERS: Obstetrics & Gynecology; PCP Nurse Practitioner; Visit Provider Urology
PROC: (CPT 57425; principal; 2025-08-20 07:30)
PROC: (CPT 58542; 2025-08-20 07:30)
DX: N81.4 Uterovaginal prolapse, unspecified (principal); N39.3 Stress incontinence (female) (male); N80.03 Adenomyosis of the uterus; N83.8 Other noninflammatory disorders of ovary, fallopian tube and broad ligament; D27.1 Benign neoplasm of left ovary; D27.0 Benign neoplasm of right ovary; E66.9 Obesity, unspecified; Z68.33 Body mass index [BMI] 33.0-33.9, adult
CPT/HCPCS: 57425; 57288; 58542; S2900 ×2; 88307; 94640; 99199; J0690; A9270; C1771; C1781; J1100; J1171; J1650; J1836; J1885; J2003; J2250; J2405; J2704; J3010; J3480; J7120